=== PATIENT | male | born 1965 | race Caucasian/White ===

== ENCOUNTER 2022-04-07 08:33 | Emergency (ER) | payer OTHER, SELFPAY ==
[2022-04-07 08:51] VITALS: BP 125/74; PULSE 91; RESP 16; TEMP 36.6; O2SAT 98; BMI 33.0
[2022-04-07 09:41] VITALS: BP 125/74; PULSE 91; RESP 16; TEMP 36.6
--- OUTSIDE RECORDS SUMMARY | 2022-04-07 09:45 | XMS_ITS | Clinical Summary ---
:1965 Author Organization [employer] [facility] [place] [address] Care Team Providers Name Role Phone Demetrio Peña MD Primary Care Provider [phone] Allergies Active Allergy Reactions Severity Noted Date Comments Gabapentin Other - Describe In High 03/13/2008 Burning, stinging tongue Comment Field - possible swe lling Methocarbamol Tongue Swelling, High 08/07/2008 Tongue Angioedema Medications Medication Sig Dispensed Refills Start Date End Date Status oxyCODONE Take 1 Tablet (5 36 Tablet 0 05/24/2021 Ac tive (ROXICODONE) 5 mg mg) by mouth every immediate release 4 hours if needed tabletIndications: for Pain. History of transmetatarsal amputation of right foot (HC), Chronic pain syndrome, Closed fracture of left ankle, sequela polyethylene Drink 3 quarts the 4000 mL 0 06/21/2021 Active glycol-electrolyte day before (GOLYTELY) procedure and 1 236-22.74-6.74 -5.86 quart 6 hours gram before procedure suspensionIndications : Encounter for screening colonoscopy CrutchIndications: For home use. 2 Each 0 08/10/2021 Active S/P right knee arthroscopy aspirin (ECOTRIN) 81 Take 1 Tablet (81 28 Tablet 0 08/10/2021 Active mg enteric coated mg) by mouth 2 tabletIndications: times daily with S/P right knee meals. arthroscopy oxyCODONE-acetaminoph Take 1 Tablet by 20 Tablet 0 08/17/2021 Active en (PERCOCET) 5-325 mouth every 6 hours mg per if needed for Pain. tabletIndications: Max acetaminophen S/P right knee dose: 4000mg in 24 arthroscopy hrs. durable medical Fit for a Larger 1 Each 0 10/13/2021 Active equipment electric scooter (DME)Indications: due to pain and Reduced mobility, S/P discomfort from his right knee current scooter arthroscopy Active Problems Problem Noted Date S/P right knee arthroscopy 08/23/2021 History of transmetatarsal amputation of right foot Pseudarthrosis after fusion or arthrodesis 02/27/2019 Retrocalcaneal bursitis (back of heel), left 9 Osteomyelitis of metatarsal 03/21/2018 Depression 02/13/2018 Controlled substance agreement signed 05/24/2017 Overview: Douglas Ramírez MD [facility] Gracia Alexandre CMA....05/24/2017 7:20 AM Chronic back pain 03/26/2013 Microhematuria 11/04/2012 Metabolic acidosis, normal anion gap (NAG) 11/04/2012 Leucocytosis 11/01/2012 Lumbar spinal stenosis 10/31/2012 Anemia 10/31/2012 Sinus tachycardia 10/31/2012 Lumbar disc herniation with radiculopathy 01/03/2012 CUBITAL TUNNEL SYNDROME 09/19/2007 Lesion of plantar nerve 05/02/2007 Pain in limb 08/29/2006 Depressive disorder, not elsewhere classified 06/13/19 07 Tobacco use disorder 06/13/2006 Chronic pain syndrome 06/13/2006 Overview: Foot Lower limb amputation, foot 06/13/2006 Overview: R foot Chemical dependency Overview: primarily alcohol, but h/o multiple drug use in past including cocaine, opiates, amphetamines, marijuana Resolved Problems Problem Noted Date Resolved Date Strain of left Achilles tendon 01/16/2019 1 Wound of right foot 02/13/2018 11/23/2020 Controlled substance agreement signed 01/20/2013 Acute kidney injury 10/31/2012 11/23/2020 NARCOTIC CONTRACT 01/17/2008 02/20/2008 Overview: No contract. Still not an opiate shai te from [facility] standpoint. Narcotic contract 03/29/2007 12/30/2007 Overview: signed 07/09/06 08-06-2006 [facility] no longer prescribing travis cotic medications Alcohol abuse, unspecified 06/13/2006 11/23/2020 Backache, unspecified 06/13/2006 11/23/2020 Overview: chronic Myocarditis, unspecified 06/13/2006 11/23/2020 Overview: Remote HX of Encounters Date Type Specialty Care Team Description 03/22/2022 Telephone Votel, Demetrio Palafox MD 03/20/2022 Nurse/Clinic Staff Immunizat ion/Injection Only (COVID-19 vacci ne) 03/20/2022 Travel from Last 3 Months Immunizations Name Administration Dates Next Due COVID-19 vaccine (Moderna 100mcg/0.5mL) 04/14/2021, 07/07/19, 06/09/2020 PF, MDV COVID-19 vaccine (Pricing Assistant-[employer] 03/20/2022 30mcg/0.3mL) 12YO+ BIVALENT BOOSTER PF, MDV Influenza, IIV3 (Age >=3 years) 05/21/2013 Influenza, IIV4 03/24/2021, 01/22/2020, 02/07/2017 Influenza,CCIIV4 PRESERV FREE 02/22/2018 Td (Age >=7 Years) 08/13/2004, 10/08/2002, 01/12/2001 Td, Preservative Free (age >= 7 Years) 08/13/2004 Tdap 12/15/2014 Family History Medical History Relation Name Comments Cancer Brother 5 brain Cancer Brother 6 brain Diabetes Sister 2 Relation Name Status Comments Brother 1 Alive Brother 2 Alive Brother 3 Alive Brother 4 Alive Brother 5 Brother 6 Father (Age 69) Mother Sister 1 Alive Sister 2 Social History Tobacco Use Types Packs/Day Years Used Date Current Every Day Smoker Cigarettes 0.5 25 Smokeless Tobacco: Never Used Tobacco Cessation: Ready to Quit: Yes; C ounseling Given: Yes Comments: smoking 4-5 cigs per day Alcohol Use Standard Drinks/Week Comments No 26.7 (1 standard drink = 0.6 oz pure mul tiple cd tx, began age 13, first alcohol) treatment at age 14; last treatment at [facility] *Sober since 03/16/16 Alcohol Habits Answer Date Recorded How often do you have a drink Not asked containing alcohol? How many drinks containing alcohol Not asked do you have on a typical day when you are drinking? How often do you have six or more Not asked drinks on one occasion? 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 Obstetrics History Last Filed Vital Signs Vital Sign Reading Time Taken Comments Blood Pressure 123/76 08/10/2021 12:28 PM CDT Pulse 83 08/10/2021 12:28 PM CDT Temperature 36.7 ??C (98 ??F) 08/10/2021 11:23 AM CDT Respiratory Rate 18 08/10/2021 12:28 PM CDT Oxygen Saturation 93% 08/10/2021 12:28 PM CDT Inhaled Oxygen Concentration - - Weight 110.9 kg (244 lb 9.6 oz) 08/10/2021 6:57 AM CDT Height 185.4 cm (6' 1) 08/10/2021 6:57 AM CDT Body Mass Index 32.27 08/10/2021 6:57 AM CDT Plan of Treatment Health Maintenance Due Date Last Done Comments Pneumococcal series for age 19-64 1969 (1 - PCV) HIV for age 15-65 1978 Hepatitis C screening for age 0105/31/1981 18-79 Lipids for age 45-75 2008 Zoster (shingles) series for age 0105/31/2013 50+ (1 of 2) Influenza for age 50-64 01/12/2022 03/24/2021, 01/22/2020, 02/22/2018, Additional history exists BMI (ht and wt on same day) for 08/03/2022 08/03/2021, 06/14, age 18+ 04/12/2021, Additional history exists Depression screening for age 12+ 08/03/2022 08/03/2021, 09/2020, 03/16/2020, Additional history exists Fecal testing non-DNA 10/03/2022 10/03/2021 (FIT,FOBT,iFOBT) for age 45-75 Tetanus booster 12/15/2024 12/15/2014, 10/21/2012, 08/13/2004, Additional history exists Tdap Completed 12/15/2014 COVID-19 vaccine series Completed 03/20/2022, 04/14/2021, 07/07/2020, Additional history exists Medical Devices Implanted Type Area Inventory Manager Device Shelf Model / Identifier Expiration Serial / Date Lot Perimeter Lg 16mm 8 Deg Add-On - [id number] N/A: Medtron ic [id number] / Implanted: Qty: 1 on 10/30/2012 by Audi Rajan at [facility] Spine Spine/Ortho / [id number] Bone Matrix 5cc Stimulan Kit Rapid Cure - [id number] Right : [employer] 12/11/2020 [id number] / Implanted: Qty: 1 on 03/21/2018 by Rashad Bourgeois MD at [facility] Foot / [id number]/28-R376 /[id number] Screw Foot 5x55mm Fixos Comp Headless - [id number] Left: [place] [id number] / Implanted: Qty: 1 on 08/20/2018 by Rashad Bourgeois MD at [facility] Foot Orthopaedics / Description: Load [id number] Results Not on filefrom Last 3 Months [address] (Home) [address] [facility] [address] [address] Gianni Mijares Personal/Family Self 1965 [address] [facility] [place] [place] [address] Advance Directives Latest Code Status on File Code Status Date Activated Date Inactivated Comments Full Code 08/10/2021 6:54 AM 08/10/2021 3:29 PM Code Status Discussion: Reviewed Preferences Full Code 08/20/2018 9:53 AM 08/20/2018 9:15 PM Full Code 03/21/2018 1:14 PM 03/24/2018 3:26 PM Full Code 02/13/2018 12:58 PM 02/15/2018 5:23 PM Full Code 12/25/2017 9:27 AM 12/25/2017 7:50 PM Care Teams Utility Aide Relationship Specialty Start Date End Date Votel, Demetrio Palafox MD PCP - General Family Practice 01/21/[address] [place] [address]
--- OUTSIDE RECORDS SUMMARY | 2022-04-07 09:45 | XMS_ITS ---
:1965 Author Organization [employer] - Primary Address [address] [place] [address] Care Team Providers Name Role Phone Judy Cronin Unavailable Unavailable PROBLEMS ALLERGIES No Known Allergies ENCOUNTERS IMMUNIZATIONS No Known Immunizations SOCIAL HISTORY REASON FOR REFERRAL FUNCTIONAL STATUS PLAN OF CARE VITAL SIGNS MEDICATIONS PROCEDURES No Known procedures RESULTS REASON FOR VISIT Insurance Providers
--- OUTSIDE RECORDS SUMMARY | 2022-04-07 09:45 | XMS_ITS ---
:1965 Author Organization [employer] [facility] - Primary Address [address] [place] [address] Care Team Providers Name Role Phone Nikhilmarybethmaria teresaJudy Unavailable Unavailable PROBLEMS Type Condition ICD9-CM [id number] Onset Condition SNOMED Cod e Code Code Dates Status Problem Acquired absence of Z89.439 Active 411863630 unspecified foot Problem Fusion of spine, M43.20 Active site unspecified Problem Obesity, unspecified E66.9 Active 950407052 Problem Unspecified internal M23.91 Active 40565704 derangement of right knee Problem Chronic pain G89.4 Active 2048897 06 syndrome Problem terminologist (current) Z79.891 Active 082158602 use of opiate analgesic Problem Pain in left ankle M25.572 Active 2 59313227 and joints of left foot Problem Postlaminectomy M96.1 Active 2715 1001 syndrome, not elsewhere classified ALLERGIES No Known Allergies ENCOUNTERS Encounter Location Date Diagnosis [facility] [address] [facility] Mar, Chronic pain syndrome Primary 5pm [facility], [place] [address] [facility] [address] [place] [address] Mar, Chronic pain syndrome [facility] [place], [place] G89.4 ; Other acute [facility] [address] postprocedural p ain G89.18 ; terminologist (cur rent) use of opiate analge sic Z79.891 ; Fusion of spine, site unspecified M43.20 ; Acquired absence of unspecified foot Z89.439 ; Pain in left ank le and joints of left f oot M25.572 ; Pain i n right knee M25.561 and Postlaminectomy syndrome, not elsewhere cl assified M96.1 [facility] [address] Mar, [place] [address] [facility] [address] Feb, [place] [address] [facility] & [address] Feb, Chronic pain syndrome [facility] [place], [place] G89.4 ; Other acute [facility] [address] postprocedural p ain G89.18 ; terminologist (cur rent) use of opiate analge sic Z79.891 ; Fusion of spine, site unspecified M43.20 ; Acquired absence of unspecified foot Z89.439 ; Pain in left ank le and joints of left f oot M25.572 ; Pain i n right knee M25.561 and Postlaminectomy syndrome, not elsewhere cl assified M96.1 [facility] [address] Jan, Chronic pain syndrome Primary 5pm [facility], [place] [address] [facility] [address] Jan, [place] [address] [facility] - [address] Jan, [place] [address] [facility] & [address] Jan, Chronic pain syndrome [facility] [place], [place] G89.4 ; Other acute [facility] [place] [address] postprocedural p ain G89.18 ; [facility] (cur rent) use of opiate analge sic Z79.891 ; Fusion of spine, site unspecified M43.20 ; Acquired absence of unspecified foot Z89.439 ; Pain in left ank le and joints of left f oot M25.572 ; Pain i n right knee M25.561 and Postlaminectomy syndrome, not elsewhere cl assified M96.1 [facility] - [address] Jan, Primary [address] [place] [address], [place] [address] [facility] - [address] Jan, Chronic pain syndrome [facility] [place] [address] [facility] [address] Jan, Primary [address] [place] [address], [place] [address] [facility] & [address] Jan, Chronic pain syndrome [facility] [place], [place] G89.4 ; Other acute [facility] [place] [address] postprocedural p ain G89.18 ; [facility] (cur rent) use of opiate analge sic Z79.891 ; Fusion of spine, site unspecified M43.20 ; Acquired absence of unspecified foot Z89.439 ; Pain in left ank le and joints of left f oot M25.572 ; Pain i n right knee M25.561 and Postlaminectomy syndrome, not elsewhere cl assified M96.1 [facility] - [address] Dec, [facility] [address] [facility] - [address] Dec, Chronic pain syndrome Primary [address] [place] [address], [place] [address] [facility] - [address] Dec, Chronic pain syndrome Primary [address] [place] [address], [place] [address] [facility] - [address] Dec, Primary [address] [place] [address], [place] [address] [facility] [address] Dec, Chronic pain syndrome [facility] [place], [place] G89.4 ; Other acute [facility] [place] [address] postprocedural p ain G89.18 ; terminologist (cur rent) use of opiate analge sic Z79.891 ; Fusion of spine, site unspecified M43.20 ; Acquired absence of unspecified foot Z89.439 ; Pain in left ank le and joints of left f oot M25.572 ; Pain i n right knee M25.561 and Postlaminectomy syndrome, not elsewhere cl assified M96.1 [facility] - [address] Nov, Long ter m (current) use of Primary 5pm [facility], [place] [address] [facility] [address] Nov, Chronic pain syndrome [facility] [place], [place] G89.4 ; Other acute [facility] [address] postprocedural p ain G89.18 ; [facility] (cur rent) use of opiate analge sic Z79.891 ; Fusion of spine, site unspecified M43.20 ; Acquired absence of unspecified foot Z89.439 ; Pain in left ank le and joints of left f oot M25.572 ; Pain i n right knee M25.561 and Postlaminectomy syndrome, not elsewhere cl assified M96.1 [facility] - [address] Oct, Chronic pain syndrome Primary 5pm [facility], [place]89.[place] ; [place] [address] postprocedural p ain G89.18 ; MCC (cur rent) use of opiate analge sic Z79.891 ; Fusion of spine, site unspecified M43.20 ; Acquired absence of unspecified foot Z89.439 ; Pain in left ank le and joints of left f oot M25.572 ; Pain i n right knee M25.561 and Postlaminectomy syndrome, not elsewhere cl assified M96.1 [facility] - [address] September, Chronic pain syndrome Primary 5pm [facility], [place] [address] [facility] - [address] September, Chronic pain syndrome Primary 5pm [facility], G89.4 ; [place] [address] postprocedural p ain G89.18 ; [facility] (cur rent) use of opiate analge sic Z79.891 ; Fusion of spine, site unspecified M43.20 ; Acquired absence of unspecified foot Z89.439 ; Pain in left ank le and joints of left f oot M25.572 ; Pain i n right knee M25.561 and Postlaminectomy syndrome, not elsewhere cl assified M96.[address] Aug, [place] ; Other acute [facility] [address] postprocedural p ain G89.18 ; MCC (cur rent) use of opiate analge sic Z79.891 ; Fusion of spine, site unspecified M43.20 ; Acquired absence of unspecified foot Z89.439 ; Pain in left ank le and joints of left f oot M25.572 ; Pain i n right knee M25.561 and Postlaminectomy syndrome, not elsewhere cl assified M96.[address] Aug, [place] pain [place] ; Other acute [facility] [address] postprocedural p ain G89.18 ; MCC (cur rent) use of opiate analge sic Z79.891 ; Fusion of spine, site unspecified M43.20 ; Acquired absence of unspecified foot Z89.439 ; Pain in left ank le and joints of left f oot M25.572 ; Pain i n right knee M25.561 ; Postlaminectomy syndrome, not elsewhere cl assified M96.1 and Obesit y, unspecified E66. [address] Aug, Chronic pain syndrome [facility] [place], [place] G89.4 ; Other acute [facility] [address] postprocedural p ain G89.18 ; MCC (cur rent) use of opiate analge sic Z79.891 ; Fusion of spine, site unspecified M43.20 ; Acquired absence of unspecified foot Z89.439 ; Pain in left ank le and joints of left f oot M25.572 ; Pain i n right knee M25.561 ; Postlaminectomy syndrome, not elsewhere cl assified M96.1 and Obesit y, unspecified E66. 9 [facility] - [address] Jul, Primary 5pm [facility] [place] [address] [facility] - [address] Jul, Long ter (current) use of Primary 5pm [facility], opiate analge sic Z79.891 ; [place] [address] Chronic pain syn drome G89.4 ; Fusion o f spine, site unspecified M43.20 ; Acquired absence of unspecified foot Z89.439 ; Pain in left ank le and joints of left f oot M25.572 ; Pain i n right knee M25.561 ; Postlaminectomy syndrome, not elsewhere cl assified M96.1 ; Obesity, unspecified E66. 9 and Unspecified inte rnal derangement of r ight knee M23.91 [facility] - [address] Jun, [facility] (current) use of Primary 5pm [facility], opiate analge sic Z79.891 ; [place] [address] Chronic pain syn drome G89.4 ; Fusion o f spine, site unspecified M43.20 ; Acquired absence of unspecified foot Z89.439 ; Pain in left ank le and joints of left f oot M25.572 ; Pain i n right knee M25.561 ; Postlaminectomy syndrome, not elsewhere cl assified M96.1 ; Obesity, unspecified E66. 9 and Unspecified inte rnal derangement of r ight knee M23.91 [place] [address] Jun, [facility] (current) use of [facility] [place] opiat e analgesic Z79.891 ; [facility] [address] Chronic pain syn drome G89.4 ; Fusion o f spine, site unspecified M43.20 ; Acquired absence of unspecified foot Z89.439 ; Pain in left ank le and joints of left f oot M25.572 ; Pain i n right knee M25.561 ; Postlaminectomy syndrome, not elsewhere cl assified M96.1 ; Obesity, unspecified E66. 9 and Unspecified inte rnal derangement of r ight knee M23.91 [facility] [address] May, Rudy kerns m (current) use of [facility] [place], [place] opiat e analgesic Z79.891 ; [facility] [address] Chronic pain syn drome G89.4 ; Fusion o f spine, site unspecified M43.20 ; Acquired absence of unspecified foot Z89.439 ; Pain in left ank le and joints of left f oot M25.572 ; Pain i n right knee M25.561 ; Postlaminectomy syndrome, not elsewhere cl assified M96.1 and Obesit y, unspecified E66. 9 [facility] - [address] May, Rudy ter m (current) use of Primary 5pm [facility], opiate analge sic Z79.891 ; [place] [address] Chronic pain syn drome G89.4 ; Fusion o f spine, site unspecified M43.20 ; Acquired absence of unspecified foot Z89.439 ; Pain in left ank le and joints of left f oot M25.572 and Pain in right knee M25.561 [facility] - [address] Apr, [place] [address] [address] [facility] - [address] Apr, [place] [address] IMMUNIZATIONS No Known Immunizations SOCIAL HISTORY Qualifiers Date Current Smoker REASON FOR REFERRAL FUNCTIONAL STATUS PLAN OF CARE Activity Details Follow Up 4 Weeks Reason:Pain manageme nt f/u Future Appointment Provider Name:Judy Cronin , 2022-04-25 11:00:00 AM, [address], [address], [place], [address], Pending Test Alcohol Metabolities Pending Test [facility] VITAL SIGNS Temperature 98.2 degrees Fahrenheit 2021-06-02 Height 82 in 2021-06-02 Weight 251 lbs 2021-06-02 BMI 26.24 kg/m2 2021-06-02 Blood pressure systolic 151 mm Hg 2021-06-02 Blood pressure diastolic 89 mm Hg 2021-06-02 MEDICATIONS Medication Instructions Dosage Frequency Start End Duration Statu s Date Date Oxycodone orally TID 1 tab(s) 8h 15 Mar, 13 Apr, 28 days Active Hydrochloride 15 2021 2021 mg D3 50 mcg orally once a 1 cap(s) 30 day(s) Activ e day with some fat oxycodone 15 mg PO TID 1 tab 8h Active HYDROmorphone Active fentaNYL Active oxyCODONE 10 mg orally 3 times 1 tab(s) Dec, days Active daily sever pain 2021 PROCEDURES No Known procedures RESULTS Name Result Date Reference Range Alcohol Metabolities 2021-06-02 ETHANOL BIOMARKERS Negative Ethyl Glucuronide Not Detected Ethyl Sulfate Not Detected [facility] Comprehensive 2021-06-02 Summary Report (Summary) FINAL PDF LCLS REASON FOR VISIT pain management f/u via phone, pain management f/u, Decrease update, update from [place], pain management f/u, call [place], pain management f/u, medication( prescrption) , change RX, clairify RX, pain management f/u, New Refill Request, 5mg oxycodone sent. 10 mg failed, resend medication., pain management f/u, pain management f/u, pain management f/u via zoom, pain management f/u via zoom, pain managementf/u via zoom, pain management f/u via zoom, pain management f/u via phone, no visit today, pain management f/u via phone, pain management f/u via phone, pain management f/u via phone, pain management f/u via phone, pain management f/u via phone, Chronic back pain , partial right foot amputation, torn meniscus right knee, medical ride cancelled, [facility], reschedule, consult 05/03 Insurance Providers [facility] Member Patient Patient Patient Patient Patient Subscriber Subscriber Subscriber Group Insurance Plan Plan Plan Plan ID Relationship Address Phone Name Date of ID Name Date of No Type Insurance Insurance Insurance Coverage to Subscriber Address Phone Name Dates [employer] [phone] [employer] self Gianni [id number] [facility] [address] [address]
--- OUTSIDE RECORDS SUMMARY | 2022-04-07 09:45 | XMS_ITS ---
:1965 Author Organization [facility] 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 - [address] Mar, [place] [address] 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 - [address] Jan, Chronic pain syndrome Primary 5pm [facility], [place] [id number] [facility] - [address] Jan, [place] [address] [facility] [address] Jan, [place] [address] [facility] & [address] Jan, Chronic pain syndrome [facility], [place], [place] G89.4 ; Other acute [facility] [employer] [address] postprocedural p ain G89.18 ; [facility] (cur rent) use of opiate analge sic Z79.891 ; Fusion of spine, site unspecified M43.20 ; Acquired absence of unspecified foot Z89.439 ; Pain in left ank le and joints of left f oot M25.572 ; Pain i n right knee M25.561 and Postlaminectomy syndrome, not elsewhere cl assified M96.1 [facility] - [address] Jan, Primary [address] [place] [address], [place] [id number] [facility] - [address] Jan, Chronic pain syndrome [facility] [place] [id number] [facility] - [address] Jan, Primary [address] [place] [address], [place] [id number] [facility] & [address] Jan, Chronic pain syndrome [facility], [place], [place] G89.4 ; Other acute [facility] [employer] [address] postprocedural p ain G89.18 ; [facility] (cur rent) use of opiate analge sic Z79.891 ; Fusion of spine, site unspecified M43.20 ; Acquired absence of unspecified foot Z89.439 ; Pain in left ank le and joints of left f oot M25.572 ; Pain i n right knee M25.561 and Postlaminectomy syndrome, not elsewhere cl assified M96.1 [facility] [address] Dec, [facility] [place] [id number] [facility] - [address] Dec, Chronic pain syndrome Primary [address] [place] [address], [place] [id number] [facility] - [address] Dec, Chronic pain syndrome Primary [address] [place] [address], [place] [id number] [facility] 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 - [address] Nov, Long ter m (current) use of Primary 5pm [facility], [place] [id number] [facility] [address] Nov, Chronic pain syndrome [facility], [place], [place] G89.4 ; Other acute [facility] [address] postprocedural p ain G89.18 ; [facility] (cur rent) use of opiate analge sic Z79.891 ; Fusion of spine, site unspecified M43.20 ; Acquired absence of unspecified foot Z89.439 ; Pain in left ank le and joints of left f oot M25.572 ; Pain i n right knee M25.561 and Postlaminectomy syndrome, not elsewhere cl assified M96.1 [facility] - [address] Oct, Chronic pain syndrome Primary 5pm [facility], G89.4 ; [place] [address] postprocedural p ain G89.18 ; [facility] (cur rent) use of opiate analge sic Z79.891 ; Fusion of spine, site unspecified M43.20 ; Acquired absence of unspecified foot Z89.439 ; Pain in left ank le and joints of left f oot M25.572 ; Pain i n right knee M25.561 and Postlaminectomy syndrome, not elsewhere cl assified M96.1 [facility] - [address] September, Chronic pain syndrome Primary 5pm [facility], [place] [address] [facility] - [address] September, Chronic pain syndrome Primary 5pm [facility], G89.4 ; [place] [address] postprocedural p ain G89.18 ; [facility] (cur rent) use of opiate analge sic Z79.891 ; Fusion of spine, site unspecified M43.20 ; Acquired absence of unspecified foot Z89.439 ; Pain in left ank le and joints of left f oot M25.572 ; Pain i n right knee M25.561 and Postlaminectomy syndrome, not elsewhere cl assified M96.[address] Aug, [place] ; Other acute [facility] [address] postprocedural p ain G89.18 ; [facility] (cur rent) use of opiate analge sic Z79.891 ; Fusion of spine, site unspecified M43.20 ; Acquired absence of unspecified foot Z89.439 ; Pain in left ank le and joints of left f oot M25.572 ; Pain i n right knee M25.561 and Postlaminectomy syndrome, not elsewhere cl assified M96.[address] Aug, [place] pain [place] ; Other acute [facility] [address] postprocedural p ain G89.18 ; [facility] (cur rent) use of opiate analge sic Z79.891 ; Fusion of spine, site unspecified M43.20 ; Acquired absence of unspecified foot Z89.439 ; Pain in left ank le and joints of left f oot M25.572 ; Pain i n right knee M25.561 ; Postlaminectomy syndrome, not elsewhere cl assified M96.1 and Obesit y, unspecified E66. [address] Aug, Chronic pain syndrome [facility], [place], [place] G89.4 ; Other acute [facility] [address] postprocedural p ain G89.18 ; [facility] (cur rent) use of opiate analge sic Z79.891 ; Fusion of spine, site unspecified M43.20 ; Acquired absence of unspecified foot Z89.439 ; Pain in left ank le and joints of left f oot M25.572 ; Pain i n right knee M25.561 ; Postlaminectomy syndrome, not elsewhere cl assified M96.1 and Obesit y, unspecified E66. 9 [facility] - [address] Jul, Primary 5pm [place] [id number] [facility] - [address] Jul, Long ter (current) use of Primary 5pm [facility], opiate analge sic Z79.891 ; [place] [id number] Chronic pain syn drome G89.4 ; Fusion o f spine, site unspecified M43.20 ; Acquired absence of unspecified foot Z89.439 ; Pain in left ank le and joints of left f oot M25.572 ; Pain i n right knee M25.561 ; Postlaminectomy syndrome, not elsewhere cl assified M96.1 ; Obesity, unspecified E66. 9 and Unspecified inte rnal derangement of r ight knee M23.91 [facility] - [address] Jun, [facility] (current) use of Primary 5pm [facility], opiate analge sic Z79.891 ; [place] [id number] Chronic pain syn drome G89.4 ; Fusion o f spine, site unspecified M43.20 ; Acquired absence of unspecified foot Z89.439 ; Pain in left ank le and joints of left f oot M25.572 ; Pain i n right knee M25.561 ; Postlaminectomy syndrome, not elsewhere cl assified M96.1 ; Obesity, unspecified E66. 9 and Unspecified inte rnal derangement of r ight knee M23.91 [place] [address] Jun, [facility] (current) use of [facility] [place] opiat e analgesic Z79.891 ; [facility] [address] Chronic pain syn drome G89.4 ; Fusion o f spine, site unspecified M43.20 ; Acquired absence of unspecified foot Z89.439 ; Pain in left ank le and joints of left f oot M25.572 ; Pain i n right knee M25.561 ; Postlaminectomy syndrome, not elsewhere cl assified M96.1 ; Obesity, unspecified E66. 9 and Unspecified inte rnal derangement of r ight knee M23.91 [facility] [address] May, Rudy kerns m (current) use of [facility] [place], [place] opiat e analgesic Z79.891 ; [facility] [address] Chronic pain syn drome G89.4 ; Fusion o f spine, site unspecified M43.20 ; Acquired absence of unspecified foot Z89.439 ; Pain in left ank le and joints of left f oot M25.572 ; Pain i n right knee M25.561 ; Postlaminectomy syndrome, not elsewhere cl assified M96.1 and Obesit y, unspecified E66. 9 [facility] - [address] May, Rudy ter m (current) use of Primary 5pm [facility], opiate analge sic Z79.891 ; [place] [id number] Chronic pain syn drome G89.4 ; Fusion o f spine, site unspecified M43.20 ; Acquired absence of unspecified foot Z89.439 ; Pain in left ank le and joints of left f oot M25.572 and Pain in right knee M25.561 [facility] - [address] Apr, Primary [address] [address] [facility] - [address] Apr, [place] [address] IMMUNIZATIONS No Known Immunizations SOCIAL HISTORY Qualifiers Date Current Smoker REASON FOR REFERRAL FUNCTIONAL STATUS PLAN OF CARE Activity Details Follow Up 4 Weeks Reason:Pain manageme nt f/u Future Appointment Provider Name:Judy Cronin , 2022-04-25 11:00:00 AM, [address], [address], [place], [address], Pending Test [employer] Comprehensive Pending Test Alcohol Metabolities VITAL SIGNS Temperature 98.2 degrees Fahrenheit 2021-06-02 [...] pain management f/u, Decrease update, update from [place], pain management f/u, call [place] [facility], pain management f/u, medication( prescrption) , change [...] torn meniscus right knee, medical ride cancelled, 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 [employer] self [place] [id number] [facility] [address] [address]
--- OUTSIDE RECORDS SUMMARY | 2022-04-07 09:45 | XMS_ITS ---
:1965 Author Organization [facility] 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 - [address] [facility] Mar, Chronic pain syndrome Primary [address] 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 - [address] Mar, [place] [address] [facility] 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 [address] Jan, Chronic pain syndrome Primary [address] [facility], [place] [address] [facility] - [address] Jan, [place] [address] [facility] - [address] Jan, [place] [address] [facility] & [address] Jan, Chronic pain syndrome [facility], [place], [place] G89.4 ; Other acute [facility] [address] postprocedural p ain G89.18 ; jail (cur rent) use of opiate analge sic Z79.891 ; Fusion of spine, site unspecified M43.20 ; Acquired absence of unspecified foot Z89.439 ; Pain in left ank le and joints of left f oot M25.572 ; Pain i n right knee M25.561 and Postlaminectomy syndrome, not elsewhere cl assified M96.1 [facility] - [address] Jan, Primary [address] [place] [address], [place] [address] [facility] - [address] Jan, Chronic pain syndrome [facility], [place] [address] [facility] - [address] Jan, Primary [address] [place] [address], [place] [address] [facility] & [address] Jan, Chronic pain syndrome [facility], [place], [place] G89.4 ; Other acute [facility] [address] postprocedural p ain G89.18 ; jail (cur rent) use of opiate analge sic Z79.891 ; Fusion of spine, site unspecified M43.20 ; Acquired absence of unspecified foot Z89.439 ; Pain in left ank le and joints of left f oot M25.572 ; Pain i n right knee M25.561 and Postlaminectomy syndrome, not elsewhere cl assified M96.1 [facility] - [address] Dec, [facility] [address] [facility] - [address] Dec, Chronic pain syndrome Primary [address] [place] [address], [place] [address] [facility] - [address] Dec, Chronic pain syndrome Primary [address] [place] [address], [place] [address] [facility] 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 - [address] Nov, Long ter m (current) use of Primary 5pm [facility], [place]iate [place] [address] [facility] [address] Nov, Chronic pain syndrome [facility], [place], [place] G89.4 ; Other acute [facility] [address] postprocedural p ain G89.18 ; jail (cur rent) use of opiate analge sic Z79.891 ; Fusion of spine, site unspecified M43.20 ; Acquired absence of unspecified foot Z89.439 ; Pain in left ank le and joints of left f oot M25.572 ; Pain i n right knee M25.561 and Postlaminectomy syndrome, not elsewhere cl assified M96.1 [facility] - [address] Oct, Chronic pain syndrome Primary 5pm [facility], G89.4 ; [place] [address] postprocedural p ain G89.18 ; jail (cur rent) use of opiate analge sic Z79.891 ; Fusion of spine, site unspecified M43.20 ; Acquired absence of unspecified foot Z89.439 ; Pain in left ank le and joints of left f oot M25.572 ; Pain i n right knee M25.561 and Postlaminectomy syndrome, not elsewhere cl assified M96.1 [facility] - [address] September, Chronic pain syndrome Primary [address]pm [facility], [place] [address] [facility] - [address] September, Chronic pain syndrome Primary 5pm 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 analge sic Z79.891 ; Fusion of spine, site unspecified M43.20 ; Acquired absence of unspecified foot Z89.439 ; Pain in left ank le and joints of left f oot M25.572 ; Pain i n right knee M25.561 and Postlaminectomy syndrome, not elsewhere cl assified M96.[address] Aug, [place] pain [place] ; Other acute [facility] [address] postprocedural p ain G89.18 ; jail (cur rent) use of opiate analge sic Z79.891 ; Fusion of spine, site unspecified M43.20 ; Acquired absence of unspecified foot Z89.439 ; Pain in left ank le and joints of left f oot M25.572 ; Pain i n right knee M25.561 ; Postlaminectomy syndrome, not elsewhere cl assified M96.1 and Obesit y, unspecified E66. 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 [address] [facility] - [address] Jul, Primary [address] [place] [facility] [address] [facility] - [address] Jul, Long ter (current) use of Primary [address]pm [facility], opiate analge sic Z79.891 ; [place] [address] Chronic pain syn drome G89.4 ; Fusion o f spine, site unspecified M43.20 ; Acquired absence of unspecified foot Z89.439 ; Pain in left ank le and joints of left f oot M25.572 ; Pain i n right knee M25.561 ; Postlaminectomy syndrome, not elsewhere cl assified M96.1 ; Obesity, unspecified E66. 9 and Unspecified inte rnal derangement of r ight knee M23.91 [facility] - [address] Jun, [facility] (current) use of Primary [address] [facility], opiate analge sic Z79.891 ; [place] [address] Chronic pain syn drome G89.4 ; Fusion o f spine, site unspecified M43.20 ; Acquired absence of unspecified foot Z89.439 ; Pain in left ank le and joints of left f oot M25.572 ; Pain i n right knee M25.561 ; Postlaminectomy syndrome, not elsewhere cl assified M96.1 ; Obesity, unspecified E66. 9 and Unspecified inte rnal derangement of r ight knee M23.91 [place] [address] Jun, [facility] (current) use of [facility], [place], [place] opiat e analgesic Z79.891 ; [facility] [address] Chronic pain syn drome G89.4 ; Fusion o f spine, site unspecified M43.20 ; Acquired absence of unspecified foot Z89.439 ; Pain in left ank le and joints of left f oot M25.572 ; Pain i n right knee M25.561 ; Postlaminectomy syndrome, not elsewhere cl assified M96.1 ; Obesity, unspecified E66. 9 and Unspecified inte rnal derangement of r ight knee M23.91 [facility] [address] May, [facility] (current) use of [facility], [place], [place] opiat e analgesic Z79.891 ; [facility] [address] Chronic pain syn drome G89.4 ; Fusion o f spine, site unspecified M43.20 ; Acquired absence of unspecified foot Z89.439 ; Pain in left ank le and joints of left f oot M25.572 ; Pain i n right knee M25.561 ; Postlaminectomy syndrome, not elsewhere cl assified M96.1 and Obesit y, unspecified E66. 9 [facility] - [address] May, Rudy ter m (current) use of Primary [address] [facility], opiate analge sic Z79.891 ; [place] [address] Chronic pain syn drome G89.4 ; Fusion o f spine, site unspecified M43.20 ; Acquired absence of unspecified foot Z89.439 ; Pain in left ank le and joints of left f oot M25.572 and Pain in right knee M25.561 [facility] - [address] Apr, [place] [address] [address] [facility] - [address] Apr, [place] [address] IMMUNIZATIONS No Known Immunizations SOCIAL HISTORY Qualifiers Date Current Smoker REASON FOR REFERRAL FUNCTIONAL STATUS PLAN OF CARE Activity Details Follow Up 4 Weeks Reason:Pain manageme nt f/u Future Appointment Provider Name:Judy Cronin , 2022-04-25 11:00:00 AM, [address], [address], [place], [address], Pending Test Alcohol Metabolities Pending Test ToxASSURE [...] pain management f/u, Decrease update, update from [place], pain management f/u, call [place], pain management f/u, medication( prescrption) , change [...] torn meniscus right knee, medical ride cancelled, 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 [employer] self Gianni [id number] [facility] [address] [address]
--- NOTE | 2022-04-07 13:08 | ED.GENADULT ---
HPI - General Adult General Date Seen: 04/07/22 Chief complaint: Lower Extremity Swelling Stated complaint: Likely cellulitis Time Seen by Provider: 04/07/22 09:26 Source: patient History of Present Illness HPI narrative: Patient is a 56-year-old male who complains of fairly sudden onset of pain in the left lower anterior leg starting yesterday. He says he has a history of cellulitis, previously in the right lower extremity. 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 In any case, he has since developed redness and warmth in the left lower leg in a focal area on the lower anterior oreilly. He does not have any diffuse swelling or redness. He denies any fevers, chills, vomiting or other systemic complaints. No injury to that area. He does not have underlying diabetes, no other health history which affects his immune system. Related Data Previous Rx's Medication Instructions Recorded cephalexin 500 mg capsule 500 mg PO QID #28 caps 04/07/22 Allergies Allergy/AdvReac Type Severity Reaction Status Date / Time No Known Drug Allergies Allergy Verified 04/07/22 08:53 Review of Systems Status of ROS: Reports: 10 or more systems reviewed and unremarkable except as noted in History and below [facility] Medical History History of cellulitis Social History Smoking Status: Current every day smoker What tobacco products do you use: cigarettes Smoking packs per day: 0.5 Smoking cigarettes per day: 10.0 Do you use any of these nicotine containing products: None How often do you have a drink containing alcohol: never AUDIT-C Alcohol total score: 0 Non-prescribed substance use: denies use Exam Narrative: Exam Narrative: Vital signs as noted above. In general, an alert, well-appearing patient. Head: Normocephalic, atraumatic. Eyes: Pupils are equal reactive. Extraocular movements are full. Conjunctivae are normal. ENT: Mucous membranes are moist. Throat is normal. Neck: Supple without lymphadenopathy. Heart: Regular rate and rhythm. No murmur or rub. Lungs: Clear bilaterally. No increased work of breathing, crackles or wheezes. Extremities: Amputation on the right. On the left, there is a well-demarcated area on anterior lower leg which is warm and tender to palpation. There is no fluctuance or crepitus. No significant edema. Distal pulses normal. Neurologic: Patient is alert and oriented to person and place. Speech is fluent. Face is symmetric. Moves all extremities equally. Affect: Normal. Skin: Warm and dry. Well perfused. Const: Vital Signs, click to edit/add: Vital Signs - 24 hr 04/07/22 08:51 04/07/22 09:41 Temperature 97.8 F 97.8 F Pulse Rate [Left P ulse Oximeter] 91 91 Respiratory Rate 16 16 Blood Pressure [Ri ght Upper Arm] 125/74 125/74 Pulse Oximetry 98 Oxygen Delivery Me thod Room Air Documenting provider has reviewed patient's vital signs: yes Course Course Hospital Course: At this time exam is consistent with focal cellulitis. He does not appear systemically ill. Medical history is fairly unremarkable. His exam is not consistent with DVT and I do not think he needs to have additional evaluation for that at this point. I think it is reasonable to start him on outpatient antibiotics. I do not think that blood work will add a lot to our decision making today and so I have not ordered any labs. Discussed with him that the appearance of this may worsened slightly over the next 24 hours, but within 48 hours he should be improving. If he has significant worsening at any time or develops new symptoms such as fever, chills, vomiting he should return for re-evaluation in the ER. If he is not improving over the next 48 hours he should be seen for re-evaluation in clinic or return to the ER if clinic is unavailable. Vital Signs Vital signs: Initial Vital Signs Temperature 97.8 F 04/07/22 08:51 Temperature Source Temporal Artery Scan 04/07/22 08:51 Pulse Rate 91 04/07/22 08:51 Respiratory Rate 16 04/07/22 08:51 Blood Pressure 125/74 04/07/22 08:51 Blood Pressure Mean 91 04/07/22 08:51 Blood Pressure Position Sitting 04/07/22 08:51 Pulse Oximetry 98 04/07/22 08:51 Oxygen Delivery Method 04/07/22 08:51 Vital Signs Temperature 97.8 F 04/07/22 08:51 Pulse Rate 91 04/07/22 08:51 Respiratory Rate 16 04/07/22 08:51 Blood Pressure 125/74 04/07/22 08:51 Pulse Oximetry 98 04/07/22 08:51 Oxygen Delivery Method 04/07/22 08:51 Temperature 97.8 F 04/07/22 09:41 Pulse Rate 91 04/07/22 09:41 Respiratory Rate 16 04/07/22 09:41 Blood Pressure 125/74 04/07/22 09:41 Pulse Oximetry 98 04/07/22 08:51 Oxygen Delivery Method 04/07/22 08:51 Discharge Plan Discharge Clinical Impression: Cellulitis of left leg Patient Disposition: Home, Self-Care Condition: Stable Instructions: Cellulitis (ED) Additional Instructions: Antibiotic as prescribed. Redness may get slightly worse over the next 24 hours, but should be significantly improved over the next 48. If not, follow up with primary care on Sunday or return for re-evaluation in the ER. If at any time you have significant worsening of redness, pain, swelling or develops new symptoms such as high fevers, chills, vomiting or other systemic symptoms, return for more urgent evaluation. Prescriptions: New cephalexin 500 mg capsule 500 mg PO QID Qty: 28 0RF Stand Alone Forms: [facility] Info Instructions
== END 2022-04-07 09:45 | disposition home or self-care (01) ==
LOC: ED 09:43
PROVIDERS: Emergency Provider Emergency Medicine
DX: L03.116 Cellulitis of left lower limb (principal)
CPT/HCPCS: 99283; 99284

== ENCOUNTER 2022-05-08 15:13 | Emergency (ER) | payer OTHER, SELFPAY ==
[2022-05-08 15:18] VITALS: BP 170/84; PULSE 119; RESP 20; TEMP 36.8; O2SAT 170; BMI 33.0
--- NOTE | 2022-05-08 15:56 | ED.SKABFB ---
HPI - Skin/Abscess/Foreign Bdy General Chief complaint: Skin/Abscess/Foreign Body Stated complaint: Cellulitis, wants a refill of antibiotics Time Seen by Provider: 05/08/22 15:29 History of Present Illness HPI narrative: This 56-year-old male comes in stating that he thinks he needs another prescription for an antibiotic for cellulitis. He states that he has had cellulitis in his lower extremity in the past and was diagnosed with this about a month ago. He took cephalexin and improved. His symptoms did not resolve so he went back to his primary doc who gave him a prescription for clindamycin. As he took that medicine he felt like his symptoms worsened. He also reports itchy skin and states that he has been taking Sudafed for nasal congestion. He has erythema with warmth bilaterally in his lower extremities extending from just below the knee down to his feet. He has the toes of his right foot amputated. He arrives with normal temperature but does have some tachycardia. He does not report any shortness of breath. He states that he has an appointment tomorrow by zoom call and another 1 in 3 days with his primary physician. Related Data Home Medications Medication Instructions Recorded Confirmed oxycodone 15 mg tablet 15 mg PO TID 05/08/22 05/08/22 Previous Rx's Medication Instructions Recorded cephalexin 500 mg capsule 500 mg PO TID 10 days #30 caps 05/08/22 triamcinolone acetonide 0.1 % 1 applic topical BID #30 grams 05/08/22 topical cream Allergies Allergy/AdvReac Type Severity Reaction Status Date / Time No Known Drug Allergies Allergy Verified 04/07/22 08:53 Review of Systems Status of ROS: Reports: 10 or more systems reviewed and unremarkable except as noted in History and below Narrative: Constitutional: No fevers, no weight gain or loss. Eyes: No discharge. No vision changes. HENT: No congestion, no sore throat, no ear pain. Cardiovascular: No chest pain, no palpitations. Respiratory: No shortness of breath, no wheezes, no cough. Gastrointestinal: No abdominal pain, no vomiting, no diarrhea. Genitourinary: No dysuria, no hematuria. Musculoskeletal: Normal range of motion. Skin: Erythema and swelling with warmth in lower extremities bilaterally. He has generalized pruritus. Neurological: No dizziness, weakness, sensory change, speech change. Endo/Heme/Allergies: No bruising or bleeding. No polydipsia. Pysch: no suicidality, no anxiety, no insomnia. All other systems reviewed and are negative. [facility] Medical History History of cellulitis Social History Smoking Status: Current every day smoker What tobacco products do you use: cigarettes Smoking packs per day: 0.5 Smoking cigarettes per day: 10.0 Do you use any of these nicotine containing products: None Second hand tobacco smoke exposure: No How often do you have a drink containing alcohol: never AUDIT-C Alcohol total score: 0 Non-prescribed substance use: denies use Exam Narrative: Exam Narrative: Constitutional: Well-developed, well-nourished, no acute distress. HEENT: Normocephalic, atraumatic. Neck: Normal range of motion. Nontender. Supple. Heart: Intact distal pulses. Lungs: No chest discomfort. No wheezes, rhonchi, or rales. Abdomen: Nontender. Back: Normal range of motion. Extremities: Normal range of motion. No injury. Skin: Intact. Bilateral lower extremity edema with erythema and increased warmth. Neurologic: No altered sensation. No weakness. Alert and oriented. Psychiatric: No suicidality. No anxiety or depression. No insomnia. Nursing notes and vitals signs are reviewed. Const: Vital Signs, click to edit/add: Vital Signs - 24 hr 05/08/22 15:18 Temperature 98.2 F Pulse Rate [Pulse Oximeter] 119 H Respiratory Rate 20 Blood Pressure [Ri ght Upper Arm] 170/84 H Pulse Oximetry 170 H Course Vital Signs Vital signs: Initial Vital Signs Temperature 98.2 F 05/08/22 15:18 Temperature Source Temporal Artery Scan 05/08/22 15:18 Pulse Rate 119 H 05/08/22 15:18 Pulse Rhythm 05/08/22 15:18 Respiratory Rate 20 05/08/22 15:18 Blood Pressure 170/84 H 05/08/22 15:18 Blood Pressure Mean 112 05/08/22 15:18 Blood Pressure Position Sitting 05/08/22 15:18 Pulse Oximetry 170 H 05/08/22 15:18 Vital Signs Temperature 98.2 F 05/08/22 15:18 Pulse Rate 119 H 12/26/22 15:18 Respiratory Rate 20 05/08/22 15:18 Blood Pressure 170/84 H 05/08/22 15:18 Pulse Oximetry 170 H 05/08/22 15:18 Temperature 98.2 F 05/08/22 15:18 Pulse Rate 119 H 05/08/22 15:18 Respiratory Rate 20 05/08/22 15:18 Blood Pressure 170/84 H 05/08/22 15:18 Pulse Oximetry 170 H 05/08/22 15:18 MDM - Skin/Abscess/Foreign Bdy MDM Narrative Medical decision making narrative: This patient comes in with what he feels is persistent cellulitis. This is present in both lower extremities bilaterally. A when raising his leg up and holding it there for a couple minutes there is no change in the erythema. His symptoms are suspicious for cellulitis but this presentation is occurring bilaterally and symmetrically. He does have chronic lower extremity edema. He states that he did get improvement when on Keflex about a month ago. I did discuss lab and imaging options with the patient which he declined in a process of shared decision making. He does have follow-up appointments this week. I stated that this may not be a cellulitis because of the bilaterally symmetrical presentation. However the increased warmth with redness and discomfort are very typical of cellulitis. He received a prescription for Keflex and triamcinolone cream to treat the pruritus. I advised using a moisturizing cream with alpha hydroxy such as Amlactin to treat the dryness and itchiness that he is a encountering. Discharge Plan Discharge Clinical Impression: Urticaria, Cellulitis Patient Disposition: Home, Self-Care Condition: Unchanged Additional Instructions: Take medication as prescribed. Follow up with doctor appointments as scheduled this week. Return if worsening. Use Amlactin for moisturizing lotion. Prescriptions: New triamcinolone acetonide 0.1 % cream 1 applic topical BID Qty: 30 0RF cephalexin 500 mg capsule 500 mg PO TID 10 Days Qty: 30 0RF No Action oxycodone 15 mg tablet 15 mg PO TID Follow Up/Referrals: Provider,Not a Local [Referring] - Stand Alone [facility]: [facility] Instructions
--- OUTSIDE RECORDS SUMMARY | 2022-05-08 16:00 | XMS_ITS ---
:1965 Author Organization [employer] 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 of opiate analgesic Problem Pain in left ankle M25.572 Active 2 18313400 and joints of left foot Problem Postlaminectomy M96.1 Active 2715 1001 syndrome, not elsewhere classified ALLERGIES No Known Allergies ENCOUNTERS Encounter Location Date Diagnosis [facility] & [address] [place] [address] Apr, Chronic pain syndrome [facility], [place], [place] G89.4 ; Other acute [facility] [address] postprocedural p ain G89.18 ; halfway (cur rent) use of opiate analge sic Z79.891 ; Fusion of spine, site unspecified M43.20 ; Acquired absence of unspecified foot Z89.439 ; Pain in left ank le and joints of left f oot M25.572 ; Pain i n right knee M25.561 and Postlaminectomy syndrome, not elsewhere cl assified M96.1 [facility] 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 - [address] Mar, Primary [address] [place] [phone] [facility] 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 [address] Jan, Chronic pain syndrome Primary [address] [place] [address], [place] [address] [facility] - [address] Jan, Primary [address] [place] [phone] [facility] 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 - [address] Jan, Primary [address] [place] [phone] [facility] - [address] Jan, Chronic pain syndrome Primary [address] [place] [address], [place] [address] [facility] 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 - [address] Dec, Primary [address] [place] [address], [place] [address] [facility] - [address] Dec, Chronic pain syndrome Primary [address] [place] [address], [place] [address] [facility] - [address] Dec, Chronic pain syndrome Primary [address] [place] [address], [place] [address] [facility] 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 - [address] Oct, Chronic pain syndrome Primary 5pm [facility], G89.4 ; [place] [address] postprocedural p ain G89.18 ; halfway (cur rent) use of opiate analge sic Z79.891 ; Fusion of spine, site unspecified M43.20 ; Acquired absence of unspecified foot Z89.439 ; Pain in left ank le and joints of left f oot M25.572 ; Pain i n right knee M25.561 and Postlaminectomy syndrome, not elsewhere cl assified M96.1 [facility] - [address] September, Chronic pain syndrome Primary 5pm [facility], [place] [address] [facility] - [address] September, Chronic pain syndrome Primary 5pm [facility], G89.4 ; [place] [address] postprocedural p ain G89.18 ; halfway (cur rent) use of opiate analge sic Z79.891 ; Fusion of spine, site unspecified M43.20 ; Acquired absence of unspecified foot Z89.439 ; Pain in left ank le and joints of left f oot M25.572 ; Pain i n right knee M25.561 and Postlaminectomy syndrome, not elsewhere cl assified M96.[address] Aug, Chronic pain syndrome [facility], [place], [place] G89.4 ; Other acute [facility] [address] postprocedural p ain G89.18 ; halfway (cur rent) use of opiate analge sic Z79.891 ; Fusion of spine, site unspecified M43.20 ; Acquired absence of unspecified foot Z89.439 ; Pain in left ank le and joints of left f oot M25.572 ; Pain i n right knee M25.561 and Postlaminectomy syndrome, not elsewhere cl assified M96.[address] Aug, Chronic pain syndrome [facility], [place] G89.4 ; Other acute [facility] [address] postprocedural p ain G89.18 ; 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 [address] Aug, Chronic pain syndrome [facility], [facility], [place] G89.4 ; Other acute [facility] [address] postprocedural p ain G89.18 ; halfway (cur rent) use of opiate analge sic Z79.891 ; Fusion of spine, site unspecified M43.20 ; Acquired absence of unspecified foot Z89.439 ; Pain in left ank le and joints of left f oot M25.572 ; Pain i n right knee M25.561 ; Postlaminectomy syndrome, not elsewhere cl assified M96.1 and Obesit y, unspecified E66. 9 [facility] - [address] Jul, Primary 5pm [place] [address] [facility] - [address] Jul, Long ter m (current) use of Primary 5pm [facility], opiate analge sic Z79.891 ; [place] [address] Chronic pain syn drome G89.4 ; Fusion o f spine, site unspecified M43.20 ; Acquired absence of unspecified foot Z89.439 ; Pain in left ank le and joints of left f oot M25.572 ; Pain i n right knee M25.561 ; Postlaminectomy syndrome, not elsewhere cl assified M96.1 ; Obesity, unspecified E66. 9 and Unspecified inte rnal derangement of r ight knee M23.91 [facility] - [address] Jun, Long ter m (current) use of Primary 5pm [facility], opiate analge sic Z79.891 ; [place] [address] Chronic pain syn drome G89.4 ; Fusion o f spine, site unspecified M43.20 ; Acquired absence of unspecified foot Z89.439 ; Pain in left ank le and joints of left f oot M25.572 ; Pain i n right knee M25.561 ; Postlaminectomy syndrome, not elsewhere cl assified M96.1 ; Obesity, unspecified E66. 9 and Unspecified inte rnal derangement of r ight knee M23.91 [place] [address] Jun, [facility] (current) use of [facility] [place] opiat e analgesic Z79.891 ; [facility] [address] Chronic pain syn drome G89.4 ; Fusion o f spine, site unspecified M43.20 ; Acquired absence of unspecified foot Z89.439 ; Pain in left ank le and joints of left f oot M25.572 ; Pain i n right knee M25.561 ; Postlaminectomy syndrome, not elsewhere cl assified M96.1 ; Obesity, unspecified E66. 9 and Unspecified inte rnal derangement of r ight knee M23.91 [place] [address] May, [facility] (current) use of [facility] [place] opiat e analgesic Z79.891 ; [facility] [address] Chronic pain syn drome G89.4 ; Fusion o f spine, site unspecified M43.20 ; Acquired absence of unspecified foot Z89.439 ; Pain in left ank le and joints of left f oot M25.572 ; Pain i n right knee M25.561 ; Postlaminectomy syndrome, not elsewhere cl assified M96.1 and Obesit y, unspecified E66. 9 [facility] - [address] May, [facility] (current) use of Primary 5pm [facility], opiate analge sic Z79.891 ; [place] [address] Chronic pain syn drome G89.4 ; Fusion o f spine, site unspecified M43.20 ; Acquired absence of unspecified foot Z89.439 ; Pain in left ank le and joints of left f oot M25.572 and Pain in right knee M25.561 [facility] - [address] Apr, Primary 5[place] [address] [facility] - [address] Apr, Primary 5[place] [address] IMMUNIZATIONS No Known Immunizations SOCIAL HISTORY Qualifiers Date Current Smoker REASON FOR REFERRAL FUNCTIONAL STATUS PLAN OF CARE Activity Details Follow Up 4 Weeks Reason:Pain manageme nt f/u Future Appointment Provider Name:Judy Cronin , 2022-05-23 12:30:00 AM, [address], 5pm, [place], [address], Pending Test Alcohol Metabolities Pending Test [facility] Comprehensive VITAL SIGNS Temperature 98.2 degrees Fahrenheit 2021-06-02 Height 82 in 2021-06-02 Weight 251 lbs 2021-06-02 BMI 26.24 kg/m2 2021-06-02 Blood pressure systolic 151 mm Hg 2021-06-02 Blood pressure diastolic 89 mm Hg 2021-06-02 MEDICATIONS Medication Instructions Dosage Frequency Start End Duration Statu s Date Date D3 50 mcg orally once a 1 cap(s) 30 day(s) Activ e day with some fat oxycodone 15 mg PO TID 1 tab 8h Active fentaNYL Active oxyCODONE 10 mg orally 3 times 1 tab(s) Dec, days Active daily sever pain 2021 HYDROmorphone Active Oxycodone orally TID 1 tab(s) 8h Apr, days Active Hydrochloride 15 2021 mg PROCEDURES No Known procedures RESULTS Name Result Date Reference Range Alcohol Metabolities 2021-06-02 ETHANOL BIOMARKERS Negative Ethyl Glucuronide Not Detected Ethyl Sulfate Not Detected [facility] Comprehensive 2021-06-02 Summary Report (Summary) FINAL PDF LCLS REASON FOR VISIT pain management f/u via phone, pain management f/u via phone, pain management f/u, Decrease update, update from [place], pain management f/u, call [place], pain management f/u, medication( prescrption) , change [...] torn meniscus right knee, medical ride cancelled, [employer]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 [employer] self [place] [id number] [address]
== END 2022-05-08 16:14 | disposition home or self-care (01) ==
PROVIDERS: Emergency Provider Emergency Medicine Emergency Medical Services; PCP Family Medicine
DX: L50.9 Urticaria, unspecified (principal); L03.115 Cellulitis of right lower limb; L03.116 Cellulitis of left lower limb
CPT/HCPCS: 99283; 99284

== ENCOUNTER 2023-04-15 12:03 | Emergency (ER) | payer OTHER, SELFPAY ==
[2023-04-15] VITALS (8 sets, daily range): BP systolic 150–176; BP diastolic 91–115; PULSE 83–121; RESP 16; TEMP 35.6; O2SAT 89–94; BMI 33.0
--- NOTE | 2023-04-15 12:22 | ED.GENADULT ---
HPI - General Adult General Chief complaint: Extremity Pain/Injury, Lower Stated complaint: R knee swelling Time Seen by Provider: 04/15/23 12:06 History of Present Illness HPI narrative: C/o his leg buckled in his living room this morning and landing on his knee. hx of back fusions . pt denies LOC , or dizziness before falling 57-year-old man presenting to the emergency department with complaint of right knee pain. Lives independently in his own apartment. He has had some episodes recently where feels spasms around both hips. Today felt such as spasm and his leg buckled and he landed on his knee. No other injury was sustained. He has been having some increased pain in his back. No loss of bowel or bladder control. No persistent weakness. There was no sense of palpitations or irregular heartbeats. No shortness of breath. Did not hit his head. Does have a history of low back pain. No longer taking regular opiates though at the end of our conversation he is wondering if possibly he could get some oxycodone for his pain. When discussing pain management says that ibuprofen never really worked for him. Denies any alcohol. Denies anticoagulation. Related Data Home Medications Medication Instructions Recorded Confirmed oxycodone 15 mg tablet 15 mg PO TID 05/08/22 05/08/22 Previous Rx's Medication Instructions Recorded cephalexin 500 mg capsule 500 mg PO TID 10 days #30 caps 05/08/22 triamcinolone acetonide 0.1 % 1 applic topical BID #30 grams 05/08/22 topical cream Allergies Allergy/AdvReac Type Severity Reaction Status Date / Time No Known Drug Allergies Allergy Verified 04/15/23 12:22 Review of Systems Status of ROS: Reports: 6 or more systems reviewed and unremarkable except as noted in History and below [facility] Medical History History of cellulitis ?Z87.2 - Personal history of diseases of the skin and subcutaneous tissue (ICD-10) Social History Smoking Status: Current every day smoker What tobacco products do you use: cigarettes Smoking packs per day: 0.5 Smoking cigarettes per day: 10.0 Do you use any of these nicotine containing products: None Second hand tobacco smoke exposure: No How often do you have a drink containing alcohol: never AUDIT-C Alcohol total score: 0 Non-prescribed substance use: denies use Exam Narrative: Exam Narrative: Pleasant. Flatter, distracted affect. Tinted eyeglasses. Breathing easily. Generally mildly tremulous. Head is atraumatic. Neck supple. Back appears to be nontender. No discomfort or pain to palpation over the legs other than the right knee generally. He has a fresh purpling circular bruising about 4 cm in diameter over the inferior medial knee. No laxity to varus or valgus stressors but he is quite tender to pressure required to do this with placement of my thumbs over his knee. Same for attempt at [employer]. Does have moderate joint effusion. Patella is midline. Significant demonstrable pain with flexion or extension of the knee. Const: Vital Signs, click to edit/add: Vital Signs - 24 hr 04/15/23 12:16 Temperature 96.1 F L Pulse Rate [Pulse Oximeter] 108 H Respiratory Rate 16 Blood Pressure [Ri ght Upper Arm] 159/91 H Pulse Oximetry 94 Oxygen Delivery Me thod Room Air Documenting provider has reviewed patient's vital signs: yes Course Vital Signs Vital signs: Initial Vital Signs Temperature 96.1 F L 04/15/23 12:16 Temperature Source Temporal Artery Scan 04/15/23 12:16 Pulse Rate 108 H 04/15/23 12:16 Respiratory Rate 16 04/15/23 12:16 Blood Pressure 159/91 H 04/15/23 12:16 Blood Pressure Mean 113 H 04/15/23 12:16 Blood Pressure Position Semi-Fowlers 04/15/23 12:16 Pulse Oximetry 94 04/15/23 12:16 Oxygen Delivery Method Room Air 04/15/23 12:16 Vital Signs Temperature 96.1 F L 04/15/23 12:16 Pulse Rate 108 H 04/15/23 12:16 Respiratory Rate 16 04/15/23 12:16 Blood Pressure 159/91 H 04/15/23 12:16 Pulse Oximetry 94 04/15/23 12:16 Oxygen Delivery Method Room Air 04/15/23 12:16 Temperature 96.1 F L 04/15/23 12:16 Pulse Rate 83 04/15/23 13:15 Respiratory Rate 16 04/15/23 12:16 Blood Pressure 176/115 H 04/15/23 14:02 Pulse Oximetry 92 04/15/23 13:15 Oxygen Delivery Method Room Air 04/15/23 12:16 Medications Administered Medications: Discontinued Medications Generic Name Dose Route Start Last Admin Trade Name Deb PRN Reason Stop Dose Admin Ibuprofen 600 mg 04/15/23 12:31 04/15/23 12:47 Ibuprofen 200 Mg Tablet PO 04/15/23 12:32 600 mg ONCE ONE Administration Oxycodone/Acetaminophen 1 tab 04/15/23 12:31 04/15/23 12:47 Oxycodone/Apap 5-325 Tablet PO 04/15/23 12:32 1 tab ONCE ONE Administration Medical Decision Making MDM Narrative Medical decision making narrative: I think it will be difficult to assess for internal knee derangement given degree of discomfort here. Certainly has a knee effusion. I believe a history of meniscectomy in this knee as well. I suppose possible tibial plateau fracture. I suspect more likely a contusion. Will initiate x-rays. I would like some pain management. Will given 1 tablet of 5/325 Percocet and 600 mg of ibuprofen. X-rays reviewed by me with some posterior accessory ossicles. I do not appreciate any acute abnormality other than what looks to be a mild effusion. I do return to find him flexing and extending the knee somewhat gingerly. Pain is improved but still certainly present. Placed in a knee immobilizer. He says he has crutches at home. See patient discharge plan Discharge Plan Discharge Clinical Impression: Effusion of knee, Acute knee pain, Contusion of right knee Patient Disposition: Home w/ Parent or Adult Condition: Stable Additional Instructions: Where this knee immobilizer for comfort over this next week. As discussed I would ice your knee 2-3 times daily over the next few days. And then as needed. Temporarily and maybe with a little food can take 600 mg of ibuprofen 3 times a day or alternative to that might be up to 500 mg of naproxen twice daily. Use your crutches to rest your leg. Please follow-up with primary care or Orthopedics if still not improved at around 10 days. It sounds like it is also time to have a visit about your back as well. Harold from [facility] Activity Level: No Restrictions Discharge Diet: Regular Prescriptions: No Action oxycodone 15 mg tablet 15 mg PO TID triamcinolone acetonide 0.1 % cream 1 applic topical BID Qty: 30 0RF cephalexin 500 mg capsule 500 mg PO TID 10 Days Qty: 30 0RF Follow Up/Referrals: Demetrio Peña MD [Primary Care Provider] - Stand Alone Forms: [email or web address] Info Instructions
--- NOTE | 2023-04-15 12:31 | CRLHL7_ITS ---
For Patients: As a result of the Century Cures Act, medical imaging exams and procedure reports are released immediately into your electronic medical record. You may view this report before your referring provider. If you have questions, please contact your health care provider. Indication: Trauma, fall with swelling and pain. Technique: Right knee 3 views. Comparison: None. Findings/Impression: Bones: Alignment is normal. No fractures or bone lesions. No sign of acute injury. Joint spaces: Trace pleural effusion may be evident. Moderate narrowing of the knee joint medial compartment. No other degenerative changes. Soft tissues: Unremarkable. Dictated by Geovany Grimes MD @ 04/15/2023 2:13:34 PM (Electronically Signed)
--- OUTSIDE RECORDS SUMMARY | 2023-04-15 12:38 | XMS_ITS | Patient Health Record ---
Author Name Unknown Organization [facility] - Primary Address [address] [place] [address] Care Team Providers Care Bight Maker Name Role Phone Different, PCP Primary Care Provider Judy Bagley Unavailable [phone] ALLERGIES No Known Allergies REASON FOR REFERRAL No Information MEDICATIONS Medication SIG (Take, Route, Frequency, Duration) Notes Start Date End Date Status OxyCODONE Hydrochloride 15 mg 1 tab(s) orally TID for 28 days 07/18/2022 Active oxyCODONE 10 mg 1 tab(s) orally 3 times daily sever pain for 22 days 12/20/2021 Active HYDROmorphone pain pump Active fentaNYL pain pump Active D3 50 mcg 1 cap(s) orally once a day with some fat for 30 day(s) Active oxycodone 15 mg 1 tab PO TID A ctive SOCIAL HISTORY Tobacco Use: Social History Observation Description Date Details (start date - stop date) Current Smoker NA - NA Sex Assigned At : Social History Observation Description Sex Assigned At Unknown Smoking Question Answer Notes Are you a: current smoker How often do you smoke cigarettes? every day How many cigarettes a day do you smoke? 6-10 How soon after you wake up do you smoke your fir st cigarette? 31-60 min Are you interested in quitting? Ready to quit PROBLEMS Problem Type ICD Code Onset Dates Problem Status W/U Status Risk SNOMED Code Notes Problem halfway (current) use of opiate analgesic (Z79.891) Active confirmed High ris k drug monitoring status (985862912) Problem Chronic pain syndrome (G89.4) Active confirmed Chronic bandar n syndrome (098642314) Problem Postlaminectomy syndrome, not elsewhere classified (M96.1) Active confirmed Post-lami necto my syndrome (93453453) Problem Pain in left ankle and joints of left foot (M25.572) Active confirmed Arthralgia of the ankle and/or foot (949877585) Problem Obesity, unspecified (E66.9) Active confirmed Obesity (574809983) Problem Unspecified internal derangement of right knee (M23.91) Active confirmed Derangem ent of knee (33670987) Problem Fusion of spine, site unspecified (M43.20) Active confirmed Problem Acquired absence of unspecified foot (Z89.439) Active confirmed Amputated foot (868875626) Encounters Encounter Location Date Provider Diagnosis [facility] [address] [place] [address] 04/25/2022 Judy Gringauz Chronic pain syndrom e G89.4 ; Other acute postprocedural pain G89.18 ; 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 ; Fusion of spine, site unspecified M43.20 ; Acquired absence of unspecified foot Z89.439 ; Pain in left ankle and joints of left foot M25.572 ; Pain in right knee M25.561 and Postlaminectomy syndrome, not elsewhere classified M96.1 [facility] [address] [place] [address] 05/23/2022 Judy Gringauz Chronic pain syndrom e G89.4 ; Other acute postprocedural pain G89.18 ; halfway (current) use of opiate analgesic Z79.891 ; Fusion of spine, site unspecified M43.20 ; Acquired absence of unspecified foot Z89.439 ; Pain in left ankle and joints of left foot M25.572 ; Pain in right knee M25.561 and Postlaminectomy syndrome, not elsewhere classified M96.1 [facility] [address] [place] [address] 06/20/2022 Judy Gringauz Chronic pain syndrom e G89.4 ; Other acute postprocedural pain G89.18 ; halfway (current) use of opiate analgesic Z79.891 ; Fusion of spine, site unspecified M43.20 ; Acquired absence of unspecified foot Z89.439 ; Pain in left ankle and joints of left foot M25.572 ; Pain in right knee M25.561 and Postlaminectomy syndrome, not elsewhere classified M96.1 [facility], [facility] [address] [place] [address] 07/18/2022 Judy Cronin Chronic pain syndrom e G89.4 ; Other acute postprocedural pain G89.18 ; halfway (current) use of opiate analgesic Z79.891 ; Fusion of spine, site unspecified M43.20 ; Acquired absence of unspecified foot Z89.439 ; Pain in left ankle and joints of left foot M25.572 ; Pain in right knee M25.561 and Postlaminectomy syndrome, not elsewhere classified M96.1 [facility] - Primary [address] [facility] [address] [address] 07/25/2022 Judy Cronin [facility] 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 Per [facility] records: His current pump dosing comes out to about 200 MME, combined with his current oral oxycodone, gives about 230 MME, which is now likely lower w/ the lowering of Dilaudid. Chronic pain conditions appear stable in the interim, possibly slightly exacerbated due to decreased activity levels s/p surgery and the acute post-surgical pain. He states his goal is still to get off the pump, and that [facility] does not wish to manage oral oxycodone. They did initiate Belbuca film, which he states he is not deriving any benefit from. We need to obtain updated records from [facility] to see what their plans are and current dosing of pain pump. In interim, will continue with the oxycodone-5 as above w/ no changes until we can connect w/ [facility]. Pt is being DC'd pain pump due to not being tolerated anymore. Pt states that in two weeks his pain team will be cutting his pain pump in half with medication to taper off. Wants Dr. Cronin to be primary pain doctor. PLAN: -Pt agreed to go down to 3 boluses at next visit Jun 01. -Cont oxycodone 15 mg 3x day once discussed taking over full pain management care once the pain team contacts us with further information. -F/u w/ [facility] as directed. -Fall precautions discussed. -F/u with [facility] to start transfer of care for pain management. Has appointment July 20. 06/20/2022 Chronic pain syndrom e (ICD-10 - G89.4) Assessment: 56 yo M w/ h/o s/p spinal fusion x 2, multiple trauma w/ fx LT ankle, RT foot amputation s/p osteomyelitis from previous hardware, here for pain management f/u s/p RT meniscal repair 08/10/21 POD #40. Per [facility] records: His current pump dosing comes out to about 200 MME, combined with his current oral oxycodone, gives about 230 MME, which is now likely lower w/ the lowering of Dilaudid. Chronic pain conditions appear stable in the interim, possibly slightly exacerbated due to decreased activity levels s/p surgery and the acute post-surgical pain. He states his goal is still to get off the pump, and that [facility] does not wish to manage oral oxycodone. They did initiate Belbuca film, which he states he is not deriving any benefit from. We need to obtain updated records from [facility] to see what their plans are and current dosing of pain pump. In interim, will continue with the oxycodone-5 as above w/ no changes until we can connect w/ [facility]. Pt is being DC'd pain pump due to not being tolerated anymore. Pt states that in two weeks his pain team will be cutting his pain pump in half with medication to taper off. Wants Dr. Cronin to be primary pain doctor. PLAN: -Pt agreed to go down to 3 boluses at next visit Jun 01. -Cont oxycodone 15 mg 3x day once discussed taking over full pain management care once the pain team contacts us with further information. -F/u w/ [facility] as directed. -Fall precautions discussed. -F/u with [facility] to start transfer of care for pain management. - 4 weeks f/u 05/23/2022 Chronic pain syndrom e (ICD-10 - G89.4) Assessment: 56 yo M w/ h/o s/p spinal fusion x 2, multiple trauma w/ fx LT ankle, RT foot amputation s/p osteomyelitis from previous hardware, here for pain management f/u s/p RT meniscal repair 08/10/21 POD #40. Per [facility] records: His current pump dosing comes out to about 200 MME, combined with his current oral oxycodone, gives about 230 MME, which is now likely lower w/ the lowering of Dilaudid. Chronic pain conditions appear stable in the interim, possibly slightly exacerbated due to decreased activity levels s/p surgery and the acute post-surgical pain. He states his goal is still to get off the pump, and that [facility] does not wish to manage oral oxycodone. They did initiate Belbuca film, which he states he is not deriving any benefit from. We need to obtain updated records from [facility] to see what their plans are and current dosing of pain pump. In interim, will continue with the oxycodone-5 as above w/ no changes until we can connect w/ [facility]. Pt is being DC'd pain pump due to not being tolerated anymore. Pt states that in two weeks his pain team will be cutting his pain pump in half with medication to taper off. Wants Dr. Cronin to be primary pain doctor. PLAN: -Pt agreed to go down to 3 boluses at next visit Jun 01. -Cont oxycodone 15 mg 3x day once discussed taking over full pain management care once the pain team contacts us with further information. -F/u w/ [facility] as directed. -Fall precautions discussed. - 4 weeks f/u 04/25/2022 Chronic pain syndrom e (ICD-10 - G89.4) Assessment: 56 yo M w/ h/o s/p spinal fusion x 2, multiple trauma w/ fx LT ankle, RT foot amputation s/p osteomyelitis from previous hardware, here for pain management f/u s/p RT meniscal repair 08/10/21 POD #40. Per [facility] records: His current pump dosing comes out to about 200 MME, combined with his current oral oxycodone, gives about 230 MME, which is now likely lower w/ the lowering of Dilaudid. Chronic pain conditions appear stable in the interim, possibly slightly exacerbated due to decreased activity levels s/p surgery and the acute post-surgical pain. He states his goal is still to get off the pump, and that [facility] does not wish to manage oral oxycodone. They did initiate Belbuca film, which he states he is not deriving any benefit from. We need to obtain updated records from [facility] to see what their plans are and current dosing of pain pump. In interim, will continue with the oxycodone-5 as above w/ no changes until we can connect w/ [facility]. Pt is being DC'd pain pump due to not being tolerated anymore. Pt states that in two weeks his pain team will be cutting his pain pump in half with medication to taper off. Wants Dr. Cronin to be primary pain doctor. PLAN: -Pt agreed to go down to 3 boluses at next visit Jun 01. -Cont oxycodone 15 mg 3x day once discussed taking over full pain management care once the pain team contacts us with further information. -F/u w/ [facility] as directed. -Fall precautions discussed. - 4 weeks f/u 04/25/2022 Other acute postprocedural pain (ICD-10 - G89.18) 56 yo M w/ h/o s/p spinal fusion x 2, multiple trauma w/ fx LT ankle, RT foot amputation s/p osteomyelitis from previous hardware, here for pain management f/u s/p RT meniscal repair 08/10/21. He has been doing ok w/ active therapy rehab program to date. The RT knee appears better objectively today. He has f/u w/ ortho 11/28/21. In terms of pain, he feels he needs to continue with the 5x dosing with oxycodone for now. It appears overall his pain is reasonably managed w/ pain pump and 5x daily dosing of oxycodone as above. As above, need to clarify trt plan with [facility]. PLAN: -Discussed safety protocols in his residence s/p surgery, including care with rugs on tile to avoid slipping when using crutches and to avoid twisting of the knee and practice very careful ambulation. -see chronic pain above. 05/23/2022 Other acute postprocedural pain (ICD-10 - G89.18) 56 yo M w/ h/o s/p spinal fusion x 2, multiple trauma w/ fx LT ankle, RT foot amputation s/p osteomyelitis from previous hardware, here for pain management f/u s/p RT meniscal repair 08/10/21. He has been doing ok w/ active therapy rehab program to date. The RT knee appears better objectively today. He has f/u w/ ortho 11/28/21. In terms of pain, he feels he needs to continue with the 5x dosing with oxycodone for now. It appears overall his pain is reasonably managed w/ pain pump and 5x daily dosing of oxycodone as above. As above, need to clarify trt plan with [facility]. PLAN: -Discussed safety protocols in his residence s/p surgery, including care with rugs on tile to avoid slipping when using crutches and to avoid twisting of the knee and practice very careful ambulation. -see chronic pain above. 06/20/2022 Other acute postprocedural pain (ICD-10 - G89.18) 56 yo M w/ h/o s/p spinal fusion x 2, multiple trauma w/ fx LT ankle, RT foot amputation s/p osteomyelitis from previous hardware, here for pain management f/u s/p RT meniscal repair 08/10/21. He has been doing ok w/ active therapy rehab program to date. The RT knee appears better objectively today. He has f/u w/ ortho 11/28/21. In terms of pain, he feels he needs to continue with the 5x dosing with oxycodone for now. It appears overall his pain is reasonably managed w/ pain pump and 5x daily dosing of oxycodone as above. As above, need to clarify trt plan with [facility]. PLAN: -Discussed safety protocols in his residence s/p surgery, including care with rugs on tile to avoid slipping when using crutches and to avoid twisting of the knee and practice very careful ambulation. -see chronic pain above. 07/18/2022 Other acute postprocedural pain (ICD-10 - G89.18) 56 yo M w/ h/o s/p spinal fusion x 2, multiple trauma w/ fx LT ankle, RT foot amputation s/p osteomyelitis from previous hardware, here for pain management f/u s/p RT meniscal repair 08/10/21. He has been doing ok w/ active therapy rehab program to date. The RT knee appears better objectively today. He has f/u w/ ortho 11/28/21. In terms of pain, he feels he needs to continue with the 5x dosing with oxycodone for now. It appears overall his pain is reasonably managed w/ pain pump and 5x daily dosing of oxycodone as above. As above, need to clarify trt plan with [facility]. PLAN: -Discussed safety protocols in his residence s/p surgery, including care with rugs on tile to avoid slipping when using crutches and to avoid twisting of the knee and practice very careful ambulation. -see chronic pain above. 07/18/2022 halfway (current) use of opiate analgesic (ICD-10 - Z79.891) 06/02/21 LC urine tox- pos hydromorphone, fentanyl and norfentanyl. Neg oxy. Neg etoh metabolites. Neg illicits. Consistent with pain pump and pt likely used up limited oral oxycodone per history due to incr ankle/knee pain. Appropriate. 11/27/21 LC urine tox- pos hydromorphone, fentanyl and norfentanyl. Neg oxy. Neg etoh met. Neg Oxycodone as above. 06/20/2022 halfway (current) use of opiate analgesic (ICD-10 - Z79.891) 06/02/21 LC urine tox- pos hydromorphone, fentanyl and norfentanyl. Neg oxy. Neg etoh metabolites. Neg illicits. Consistent with pain pump and pt likely used up limited oral oxycodone per history due to incr ankle/knee pain. Appropriate. 11/27/21 LC urine tox- pos hydromorphone, fentanyl and norfentanyl. Neg oxy. Neg etoh met. Neg Oxycodone as above. 05/23/2022 halfway (current) use of opiate analgesic (ICD-10 - Z79.891) 06/02/21 LC urine tox- pos hydromorphone, fentanyl and norfentanyl. Neg oxy. Neg etoh metabolites. Neg illicits. Consistent with pain pump and pt likely used up limited oral oxycodone per history due to incr ankle/knee pain. Appropriate. 11/27/21 LC urine tox- pos hydromorphone, fentanyl and norfentanyl. Neg oxy. Neg etoh met. Neg Oxycodone as above. 04/25/2022 halfway (current) use of opiate analgesic (ICD-10 - Z79.891) 06/02/21 LC urine tox- pos hydromorphone, fentanyl and norfentanyl. Neg oxy. Neg etoh metabolites. Neg illicits. Consistent with pain pump and pt likely used up limited oral oxycodone per history due to incr ankle/knee pain. Appropriate. 11/27/21 LC urine tox- pos hydromorphone, fentanyl and norfentanyl. Neg oxy. Neg etoh met. Neg Oxycodone as above. 04/25/2022 Fusion of spine, sit e unspecified (ICD-10 - M43.20) see above. 06/20/2022 Fusion of spine, sit e unspecified (ICD-10 - M43.20) see above. 05/23/2022 Fusion of spine, sit e unspecified (ICD-10 - M43.20) see above. 07/18/2022 Fusion of spine, sit e unspecified (ICD-10 - M43.20) see above. 07/18/2022 Acquired absence of unspecified foot (ICD-10 - Z89.439) see chronic pain above. continue with fall precautions, use assitive devices when able. 05/23/2022 Acquired absence of unspecified foot (ICD-10 - Z89.439) see chronic pain above. continue with fall precautions, use assitive devices when able. 06/20/2022 Acquired absence of unspecified foot (ICD-10 - Z89.439) see chronic pain above. continue with fall precautions, use assitive devices when able. 04/25/2022 Acquired absence of unspecified foot (ICD-10 - Z89.439) see chronic pain above. continue with fall precautions, use assitive devices when able. 04/25/2022 Pain in left ankle and joints of left foot (ICD-10 - M25.572) see chronic pain above. 05/23/2022 Pain in left ankle and joints of left foot (ICD-10 - M25.572) see chronic pain above. 06/20/2022 Pain in left ankle and joints of left foot (ICD-10 - M25.572) see chronic pain above. 07/18/2022 Pain in left ankle and joints of left foot (ICD-10 - M25.572) see chronic pain above. 06/20/2022 Pain in right knee (ICD-10 - M25.561) see acute pain above. 07/18/2022 Pain in right knee (ICD-10 - M25.561) see acute pain above. 05/23/2022 Pain in right knee (ICD-10 - M25.561) see acute pain above. 04/25/2022 Pain in right knee (ICD-10 - M25.561) see acute pain above. 04/25/2022 Postlaminectomy syndrome, not elsewhere classified (ICD-10 - M96.1) stable, see above. 05/23/2022 Postlaminectomy syndrome, not elsewhere classified (ICD-10 - M96.1) stable, see above. 07/18/2022 Postlaminectomy syndrome, not elsewhere classified (ICD-10 - M96.1) stable, see above. 06/20/2022 Postlaminectomy syndrome, not elsewhere classified (ICD-10 - M96.1) stable, see above. PLAN OF TREATMENT No Information Insurance Providers Payer Name Payer Address Payer Phone Subscriber Number Group Number Insured Name Patient Relationship to Insured Coverage Start Date Coverage End Date [employer] [address] [address] [place] [address] [id number] Gianni Mijares Self - patient is the insured MEDICAL (GENERAL) HISTORY Medical History History ICD Code partial right foot amputation Chronic back pain Surgical History Surgery Date(Month/Year) Fusion of back 2012 partial right foot amputation 2007 Rt knee meniscal repair, arthroscopic Hospitalization History Reason Date(Month/Year) ED for Cellulitis 03/2022
--- OUTSIDE RECORDS SUMMARY | 2023-04-15 12:39 | XMS_ITS | Continuity of Care Document ---
Author Name Unknown Organization [facility] Address [address] [place] [address] Phone Care Team Providers Care In Flight Crew Member Name Role Phone Trenton Ware MD Unavailable Unavailable Allergies, Adverse Reactions, Alerts Substance Reaction Status Criticality No Known Allergies Active No Inform ation Medications Medication Instructions Dosage Effective Dates (start - stop) Status Comments DILAUDID (unknown strength) Not Available - Active CYMBALTA (unknown strength) Not Available - Active TYLENOL (unknown strength) Not Available - Active EFFEXOR (unknown strength) Not Available - Active Procedures Procedure Date Office/Outpatient Visit,Est, Mod 2013 Office/Outpatient Visit,Est, Mod 2013 X-Ray Exam Lower Spine 2-3 Views 2013 Office/Outpatient Visit,Est, Mod 2013 X-Ray Exam Lower Spine 2-3 Views 2013 Office/Outpatient Visit,Est, Mod 2012 X-Ray Exam Lower Spine 2-3 Views 2012 Office/Outpatient Visit,Est, Mod 2012 X-Ray Exam Lower Spine 2-3 Views 2012 Postop Followup Visit X-Ray Exam Lower Spine 2-3 Views 2012 Postop Followup Visit Lumbar Spine Fusion, Posterolateral Lumbar Spine Fusion W/Bone Graft 2012 Laminotomy, Reexplr 1 Intrspc Lumbr Insert Spine Fixation, Posterior 2012 Apply Spinal Prosthetic Device 13 Allograft, Spine Surg, Morselized Autograft, Spine Surgery, Local 013 Pa Assist Lumbar Spine Fusion, Posterola teral Pa Assist Laminotomy, Reexplr 1 Intrspc Lumbr Pa Assist Insert Spine Fixation, Posteri or Office/Outpatient Visit,Est, Mod 2012 Office/Outpatient Visit,Est, Mod 2011 Postop Followup Visit Laminotomy, Reexplr 1 Intrspc Lumbr Pa Assist Laminotomy, Reexplr 1 Intrspc Lumbr Office/Outpatient Visit,Est, Low 2011 Office/Outpatient Visit,Est, Mod 2011 Postop Followup Visit Decompress Lumbar Spinalcord Seg 2011 Assist Decompress Lumbar Spinalcord Seg Office/Outpatient Visit,Est, Mod 2011 Office/outpatient visit,new, mod 2009 X-ray exam lwr spine, min 4 views Advance Directives Directive Yes / No Effective Date File Name No Information Encounters Encounter Description Practice Location Reason(s) For Visit Diagnoses Date Provider Providers Copied on Encounter [facility], [address], [place], [place], [id number], [place] tel:[phone] No Information 8 Jeanie Chowdhury. [facility] [place], [address] [place] [address], [address], [id number], [place]. tel:[phone] Office/Outpa tient Visit,Est, Mod Z [facility] [place], [address] [place] [address], [address], [place] tel:[phone] [facility] - Ariana ObesityLumbag oOVERWEIGHT 4 Mehbod Amir. [facility] [place], [address] [place] [address] [place] [address], [id number], [place]. tel:[phone] Office/Outpa tient Visit,Est, Mod Z [facility] [place], [address] [place] [address], [address], [place] tel:[phone] TIMOTHY - Ariana Back Pain (chief complaint) OVERWEIGHT 4 Mehbod Amir. [facility], [address], [place], [place], [id number], [place]. tel:[phone] Office/Outpa tient Visit,Est, Mod Z [facility], [address], [place], [address], [place] tel:[phone] [facility] [employer] No Information Koffi- 8-201 4 Mehbod Amir. [facility], [address], [place], [place], [id number], [place]. tel:[phone] Office/Outpa tient Visit,Est, Mod Z [facility], [address], [place], [address], [place] tel:[phone] [facility] [employer] No Information Apr- 6201 3 Mehbod Amir. [facility], [address], [place], [place], [id number], [place]. tel:[phone] Office/Outpa tient Visit,Est, Mod Z [facility], [address], [place], [address], [place] tel:[phone] [employer] No Information Sep-2 3-201 3 Dom Aden. [facility], [address] , [place], [address], [place]. tel:[phone] Z [facility], [address], [place], [address], [place] tel:[phone] [facility] No Information Nov-2 3 Mehbod Amir. [facility], [address], [place], [place], [id number], [place]. tel:[phone] Z [facility], [address], [place], [address], [place] tel:[phone] [facility] No Information Nov-0 1-201 3 Dom dAen. [facility], [address] , [place], [address], [place]. tel:[phone] Z [facility], [address], [place], [address], [place] tel:[phone] [facility] No Information Koffi- 9-201 3 Mehbod Amir. [facility], [address], [place], [place], [id number], [place]. tel:[phone] Office/Outpa tient Visit,Est, Mod Z [facility], [address], [place], [address], [place] tel:[phone] [employer] No Information Mar-0 8-201 3 Mehbod Amir. [facility], [address], [place], [place], [id number], [place]. tel:[phone] Office/Outpa tient Visit,Est, Mod Z [facility], [address], [place], [address], [place] tel:[phone] [employer] No Information Mar-2 6-201 2 Mehbod Amir. [facility], [address] [place] [address] [address], [place], [place], [id number], [place]. tel:[phone] Z [facility], [address] [place], [place] [address] [address], [place], [address], [place] tel:[phone] [employer] No Information Feb-1 1-201 2 Mehbod Amir. [facility], [address], [place], [place], [id number], [place]. tel:[phone] Z [facility], [address], [place], [address], [place] tel:[phone] [facility] No Information Dec-2 2-201 2 Mehbod Amir. [facility], [address], [place], [place], [id number], [place]. tel:[phone] Office/Outpa tient Visit,Est, Low Z [facility], [address], [place], [address], [place] tel:[phone] [employer] No Information Nov-3 0-201 2 Mehbod Amir. [facility], [address], [place], [place], [id number], [place]. tel:[phone] Office/Outpa tient Visit,Est, Mod Z [facility], [address], [place], [address], [place] tel:[phone] [employer] LUMBAGO Nov- 2 Mehbod Amir. [facility], [address], [place], [place], [id number], [place]. tel:[phone] Z [facility], [address], [place], [address], [place] tel:[phone] [employer] No Information Aug-0 2 No Information Z [facility], [address], [place], [address], [place] tel:[phone] [facility] No Information Jul- 2 No Information Office/Outpa tient Visit,Est, Mod Z [facility], [address], [place], [address], [place] tel:[phone] [employer] No Information 2 No Information Office/outpa tient visit,new, mod Z [facility], [address], [place], [address], [place] tel:[phone] [employer] No Information Jul-2 0 No Information Family History Family Member Type Diagnosis Age At Onset No Information Payers Payer name Insurance type Covered libertarian ID Authoriza tion(s) No Information Social History Type Description Quantity Date Captured Comments Sex Male Smoking Status No Information Chief Complaint And Reason For Visit No Information Reason For Referral Reason For Referral No Information Plan Of Treatment Date Type Action Status Future Order: Radiology Order AP Lateral Lumbar (APLatLumb), Ordered on: Ordered Future Order: Radiology Order AP Lateral Lumbar (APLatLumb), Ordered on: Ordered History Of Present Illness Encounter Date Complaint History Of Prese nt Illness Back Pain Functional Status Date Functional Assessmen t No Information Instructions Date Instruction Additional Infor matthelma Weight Management Related to Obe sity, unspecified Weight Management Related to Ove rweight Weight Management Related to Ove rweight Assessments Type Assessment Date No Information Patient Care Teams Name Effective Dates (start - stop) Status Members No Information
[2023-04-15] MEDS: IBUPROFEN 200 MG TABLET 600 MG PO (12:47)
[2023-04-15] MEDS: OxyCODONE/APAP 5-325 TABLET 1 TAB PO (12:47)
== END 2023-04-15 14:35 | disposition home or self-care (01) ==
PROVIDERS: Emergency Provider Family Medicine; PCP Family Medicine
DX: M25.461 Effusion, right knee (principal); S80.01XA Contusion of right knee, initial encounter; W19.XXXA Unspecified fall, initial encounter
CPT/HCPCS: 73562; 99283; 99284; A9270

== ENCOUNTER 2023-11-28 08:02 | Emergency (ER) | payer OTHER, SELFPAY ==
[2023-11-28 08:08] VITALS: BP 156/91; PULSE 98; RESP 18; TEMP 36.8; O2SAT 94; BMI 31.7
--- NOTE | 2023-11-28 08:11 | CRLHL7_ITS ---
For Patients: As a result of the Century Cures Act, medical imaging exams and procedure reports are released immediately into your electronic medical record. You may view this report before your referring provider. If you have questions, please contact your health care provider. Indication: Fall, left hip pain Technique: Left hip 2 views an AP pelvis Comparison: None Findings: Bones: Alignment is normal. No fractures or bone lesions. Joint spaces: Joint spaces are preserved. No degenerative changes. Soft tissues: Hernia mesh overlies the pelvis. Pump overlies the left iliac crest with catheter extending over the lumbar spine. Status post L4-5 posterior fusion. Impression: No evidence of fracture or dislocation. Dictated by Aris Gutierrez MD @ 11/28/2023 9:04:14 AM (Electronically Signed)
--- NOTE | 2023-11-28 08:11 | CRLHL7_ITS ---
For Patients: As a result of the Century Cures Act, medical imaging exams and procedure reports are released immediately into your electronic medical record. You may view this report before your referring provider. If you have questions, please contact your health care provider. Indication: Fall, right knee pain Technique: Right knee 2 views Comparison: None Findings: Bones: No evidence of fracture. Joint spaces: Mild medial compartment narrowing with moderate knee effusion. Soft tissues: Unremarkable. Impression: No evidence of fracture or dislocation. Mild right knee osteoarthritis with moderate knee effusion. Dictated by Aris Gutierrez MD @ 11/28/2023 9:07:47 AM (Electronically Signed)
--- NOTE | 2023-11-28 08:12 | ED.GENADULT ---
HPI - General Adult General Chief complaint: Fall/Minor Trauma Stated complaint: Fall, knee hip pain Time Seen by Provider: 11/28/23 08:06 History of Present Illness HPI narrative: [age] YEAR WHITE MALE FELL WITH HIS FOOT CAUGHT UNDER A TABLE INJURING HIS RIGHT KNEE AND LEFT HIP. He is on chronic oxycodone for filled back fusion, he has a right forefoot amputation. He does report he is diabetic. No other specific complaints no neck pain back pain. He has chronic back pain but nothing new from the fall. He has had a similar injury in the past. No chest pain, no fevers. He does report he falls fairly regularly. Related Data Home Medications ?Medication ?Instructions ?Recorded ?Confirmed gabapentin 300 mg capsule 300 mg PO 3XD 11/28/23 11/28/23 Allergies Allergy/AdvReac Type Severity Reaction Status Date / Time No Known Drug Allergies Allergy Verified 04/15/23 12:22 Review of Systems Status of ROS: Reports: 6 or more systems reviewed and unremarkable except as noted in History and below [facility] Medical History History of cellulitis ?Z87.2 - Personal history of diseases of the skin and subcutaneous tissue (ICD-10) Social History Smoking Status: Current every day smoker What tobacco products do you use: cigarettes Smoking packs per day: 0.5 Smoking cigarettes per day: 10.0 Do you use any of these nicotine containing products: None Second hand tobacco smoke exposure: No How often do you have a drink containing alcohol: never AUDIT-C Alcohol total score: 0 Non-prescribed substance use: denies use Exam Narrative: Exam Narrative: Objective: In general patient is in no apparent distress he is alert oriented x3 HEENT is unremarkable neck is supple back exam unremarkable his left hip shows full range of motion is got some mild tenderness over the lateral greater trochanteric bursa area no bruising noted no leg shortening or internal rotation left lower extremity right lower extremity shows a forefoot amputation he has got some chronic stasis changes on his leg He has got a knee effusion slight he has got no instability of his knee flexion-extension any limited to any significant degree is painful for him He seems to jerk out in pain when his leg is moved. Patient is ambulatory with a walker he is neurologically nonfocal. Const: Vital Signs, click to edit/add: Vital Signs - 24 hr 11/28/23 08:08 Temperature 98.3 F Pulse Rate [Pulse Oximeter] 98 Respiratory Rate 18 Blood Pressure [Le ft Upper Arm] 156/91 H Pulse Oximetry 94 Oxygen Delivery Me thod Room Air Course Vital Signs Vital signs: Initial Vital Signs Temperature 98.3 F 11/28/23 08:08 Temperature Source Temporal Artery Scan 11/28/23 08:08 Pulse Rate 98 11/28/23 08:08 Respiratory Rate 18 11/28/23 08:08 Blood Pressure 156/91 H 11/28/23 08:08 Blood Pressure Mean 112 H 11/28/23 08:08 Blood Pressure Position Supine 11/28/23 08:08 Pulse Oximetry 94 11/28/23 08:08 Oxygen Delivery Method Room Air 11/28/23 08:08 Vital Signs Temperature 98.3 F 11/28/23 08:08 Pulse Rate 98 11/28/23 08:08 Respiratory Rate 18 11/28/23 08:08 Blood Pressure 156/91 H 11/28/23 08:08 Pulse Oximetry 94 11/28/23 08:08 Oxygen Delivery Method Room Air 11/28/23 08:08 Temperature 98.3 F 11/28/23 08:08 Pulse Rate 98 11/28/23 08:08 Respiratory Rate 18 11/28/23 08:08 Blood Pressure 156/91 H 11/28/23 08:08 Pulse Oximetry 94 11/28/23 08:08 Oxygen Delivery Method Room Air 11/28/23 08:08 Medications Administered Medications: Discontinued Medications Generic Name Dose Route Start Last Admin Trade Name Deb PRN Reason Stop Dose Admin Hydrocodone Bitart/Acetaminophen 1 tab 11/28/23 08:56 11/28/23 09:03 Hydrocodone/Acetamin 7.5-325 Tablet PO 11/28/23 08:57 1 tab ONCE ONE Administration Medical Decision Making MDM Narrative Medical decision making narrative: [age] year white male with a fall right knee pain left hip pain will check x-rays. He has chronic pain from back fusion in the past, forefoot amputation on the right. Check the x-rays as above disposition pending findings. Discharge Plan Discharge Clinical Impression: Fall, Knee pain, right Patient Disposition: Home w/ Parent or Adult Condition: Stable Additional Instructions: Ice to the knee for 10 minutes 3 to 5 times a day, follow up with regular doctor next 2-3 days, knee immobilizer, continue walker. Will send home with a few pain medications to use sparingly cautioned about sedative affect. Recheck with your regular doctor as described. Activity Level: Light activity Discharge Diet: Regular Prescriptions: No Action gabapentin 300 mg capsule 300 mg PO 3XD Follow Up/Referrals: Demetrio Peña MD [Primary Care Provider] - Stand Alone Forms: [employer] Info Instructions
--- OUTSIDE RECORDS SUMMARY | 2023-11-28 08:47 | XMS_ITS | Clinical Summary ---
Author Organization [facility] Address [place], [place] [address] Care Team Providers Care Lead Warehouse Associate Name Role Phone Clinic, No Pcp Or Primary Care Provider Unavaila ble Allergies Active Allergy Reactions Criticality Noted Date Comments Gabapentin Other - Describe In Comment Field High 03/13/2008 Burning, stinging tongue - possible swelling Methocarbamol Tongue Swelling,Angioedema High 08/07/2008 Tongue Medications Medication Sig Dispensed Refills Start Date End Date Status olopatadine (PATADAY) 0.2 % ophthalmic solutionIndication s:Seasonal allergies Place 1 Drop into both eyes once daily. 5 mL 08/31/2023 Active loratadine (CLARITIN) 10 mg tabletIndications: Allergic rhinitis, unspecified seasonality, unspecified trigger,Seasonal allergies Take 1 Tablet (10 mg) by mouth once daily. 90 Tablet 1 08/31/2023 Active sodium chloride (OCEAN) 0.65 % nasal solutionIndication s:Allergic rhinitis, unspecified seasonality, unspecified trigger Inhale 2 Sprays into affected nostril(s) once daily. 45 mL 08/31/2023 Active fluticasone (50 mcg per actuation) nasal solution (FLONASE)Indicatio ns:Allergic rhinitis, unspecified seasonality, unspecified trigger Inhale 2 Sprays to both nostrils once daily. 16 g 10/05/2023 Active Belbuca [address] 150 mcg in mouth, between cheek & gum every 12 hours. 11/27/2022 Active montelukast (SINGULAIR) 10 mg tabletIndications: Allergic rhinitis, unspecified seasonality, unspecified trigger,Seasonal allergies Take 1 Tablet (10 mg) by mouth at bedtime. 90 Tablet 3 11/06/2023 Active pseudoephedrine (SUDAFED) 30 mg tabletIndications: Allergic rhinitis, unspecified seasonality, unspecified trigger,Seasonal allergies Take 1 Tablet (30 mg) by mouth every 6 hours if needed for Nasal Congestion for up to 4 days. 16 Tablet 11/06/2023 11/10/2023 Active Problems Problem Noted Date Diagnosed Date Arthritis 11/06/2023 Spondylolisthesis, lumbar region 11/06/2023 Complication of surgical procedure 02/01/2023 S/P right knee arthroscopy 08/23/2021 Degeneration of intervertebr al disc of lumbar spine without disc herniation 11/05/2019 Lumbar spondylosis 11/05/2019 History of transmetatarsal amputation of right f oot 03/27/2019 Postlaminectomy syndrome, not elsewhere classifi ed 02/27/2019 Retrocalcaneal bursitis (back of heel), left 09/2018 Osteomyelitis of metatarsal 03/21/2018 Depression 02/13/2018 Controlled substance agreement signed 05/24/2017 Overview: Douglas Ramírez MD [facility] Gracia Alexandre CMA....05/24/2017 7:20 AM Drug-seeking behavior 04/22/2013 Overview: Overview: Drug-seeking behavior and possible diversion Drug dependence 04/16/2013 Overview: primarily alcohol, but h/o multiple drug use in past including cocaine, opiates, amphetamines, marijuana Overview: ETOH clean x 2 years, cocain and meth and tx x 3 Overview: Overview: primarily alcohol, but h/o multiple drug use in past including cocaine, opiates, amphetamines, marijuana Chronic back pain 03/26/2013 Microhematuria 11/04/2012 Metabolic acidosis, normal anion gap (NAG) 11/04 Leucocytosis 11/01/2012 Lumbar spinal stenosis 10/31/2012 Anemia 10/31/2012 Sinus tachycardia 10/31/2012 Cardiac arrhythmia 10/31/2012 Overview: Overview: ICD 10 Lumbar disc herniation with radiculopathy 2011 Displacement of lumbar intervertebral disc 01/02 Moderate major depression 06/24/2010 CTS (carpal tunnel syndrome) 05/30/2010 Family history of aortic aneurysm 05/30/2010 Urinary hesitancy 05/30/2010 Hereditary and idiopathic peripheral neuropathy 01/25/2009 CUBITAL TUNNEL SYNDROME 09/19/2007 Lesion of plantar nerve 05/02/2007 Depressive disorder, not elsewhere classified Tobacco use disorder 06/13/2006 Chronic pain syndrome 06/13/2006 Overview: Foot Lower limb amputation, foot 06/13/2006 Overview: R foot Tear of meniscus of right knee as current injury Resolved Problems Problem Noted Date Diagnosed Date Resolved Date Strain of left Achilles tendon 01/16/2019 11/23/2020 Wound of right foot 02/13/2018 11/24/19 21 Controlled substance agreement signed 01/20/2013 02/27/2018 Acute kidney injury 10/31/2012 11/24/19 21 NARCOTIC CONTRACT 01/17/2008 02/20/2008 Overview: No contract. Still not an opiate candidate from UPC standpoint. Narcotic contract 03/29/2007 12/30/2007 Overview: signed 07/09/06 08-06-2006 [facility] no longer prescribing narcotic medications Pain in limb 08/29/2006 11/06/2023 Alcohol abuse, unspecified 06/13/2006 0 11/23/2020 Backache, unspecified 06/13/20062020 Overview: chronic Myocarditis, unspecified 06/13/2006 Overview: Remote HX of Encounters Date Type Department Care Team Description 11/06/2023 2:30 PM CDT Telemedicine [facility] [address] [place] [address] Saige Fairbanks DO Telehealth (No vitals ) 11/06/2023 Travel 11/05/2023 Travel 10/04/2023 Refill [facility] [address] [place] [address] Lisseth Armando PA Refill Request (Fluticasone (50 Mcg Per Actuation) Nasal) 08/31/2023 1:10 PM CDT Office Visit [address] [phone] Lisseth Armando PA Consult (Allergy concern, has nasal congestion with a cough occasionally,the cough is not productive. Patient report my eyes fell swollen. Patient report symptoms for about a month. ) 08/31/2023 Travel from Last 3 Months Immunizations Name Administration Dates Next Due COVID-19 vaccine (Moderna 100mcg/0.5mL) PF, MDV 04/14/2021,07/07/2020,06/09/2020 COVID-19 vaccine (Pfizer-Bio NTech 30mcg/0.3mL) 12YO+ BIVALENT PF, MDV 03/20/2022 Influenza, IIV3 (Age >=3 years) 05/21/2013 Influenza, IIV4 03/06/2023,,01/22/2020,2016 Influenza, IIV4 (=>6mos) MDV 03/01/2022 Influenza,CCIIV4 PRESERV FREE 02/22/2018 Td (Age >=7 Years) 08/13/2004,10/08/2002, 001 Td, Preservative Free (age > = 7 Years) 08/13/2004 Tdap 12/15/2014 Family History Medical History Relation Name Comments Cancer Brother 5 brain Cancer Brother 6 brain Diabetes Sister 2 Relation Name Status Comments Brother 1 Alive Brother 2 Alive Brother 3 Alive Brother 4 Alive Brother 5 Brother 6 Father (Age 69) Mother Sister 1 Alive Sister 2 Social History Tobacco Use Types Packs/Day Years Used Date Smoking Tobacco: Every Day Cigarettes 0.5 25 Smokeless Tobacco: Never Tobacco Cessation:Ready to Q uit: Not Asked; Counseling Given: Not Answered Comments:smoking 4-5 cigs per day Alcohol Use Standard Drinks/Week Comments No 26.7 (1 standard dri nk = 0.6 oz pure alcohol) multiple cd tx, began age 13, first treatment at age 14; last treatment at [facility] 2015,2016*Sober since 03/16/16 PHQ-2 Answer Date Recorded PHQ-2 TOTAL SCORE 0 08/31/2023 Social Connections Answer Date Recorded Frequency of Communication with Friends and Fami ly 0 08/31/2023 Financial Resource Strain Answer Date R ecorded Difficulty of Paying Living Expenses 3 08/31/2023 Difficulty of Paying Living Expenses Not on file 08/31/2023 Food Insecurity Answer Date Recorded Worried About Running Out of Food in the Last Ye ar 1 08/31/2023 Transportation Needs Answer Date Record ed Lack of Transportation (Medical) 1 08/31/2023 Housing Stability Answer Date Recorded Unable to Pay for Housing in the Last Year 1 08/31/2023 Sex and Gender Information Value Date Recorded Sex Assigned at Not on file Gender Identity Not on file Sexual Orientation Not on file Obstetrics History Last Filed Vital Signs Vital Sign Reading Time Taken Comments Blood Pressure 122/66 08/31/2023 1:10 PM CDT Pulse 84 08/31/2023 1:10 PM CDT Temperature 36.4 ??C (97.6 ??F) 08/31/2023 1:10 PM CD T Respiratory Rate 18 08/10/2021 12:28 PM CDT Oxygen Saturation 94% 08/31/2023 1:10 PM CDT Inhaled Oxygen Concentration - - Weight 108.9 kg (240 lb) 08/31/2023 1:10 PM CDT Height 185.4 cm (6' 1) 08/31/2023 1:10 PM CDT Body Mass Index 31.66 08/31/2023 1:10 PM CDT Plan of Treatment Upcoming Encounters Date Type Department Care Team (Late st Contact Info) Description 12/11/2023 3:30 PM CDT Office Visit [facility] [place] [address] [facility] [address] [place] [phone] Jay Baron MD [address] [facility] [address] [place] [address] Health Maintenance Due Date Last Done Comments Pneumococcal series for age 6-64 (1 of 2 - PCV) 1969 HIV for age 15-65 1978 Hepatitis C screening for ag e 18-79 1981 Lipids for age 45-75 2008 Zoster (shingles) series for age 50+ (1 of 2) 2013 Fecal testing non-DNA (FIT,FOBT,iFOBT) for age 45-75 10/03/2022 10/03/2021 Influenza for age 50-64 01/13/2024 03/06/20, 03/01/2022, 03/24/2021, Additional history exists BMI (ht and wt on same day) for age 18+ 08/30/2024 08/31/2023, 08/03/2021, 07/01/2021, Additional history exists Depression screening for age 12+ 08/30/2024 08/31/2023, 08/03/2021, 06/18/2020, Additional history exists Tetanus booster 12/15/2024 12/15/2014, 10/12, 08/13/2004, Additional history exists Tdap Completed 12/15/2014 COVID-19 vaccine series Completed 06/19/19, 03/20/2022, 04/14/2021, Additional history exists Medical Devices Implanted Type Area Pbx Installer Device Identifier Shelf Expiration Date Model / Serial / Lot [id number] Bone Dbx 5cc [id number] [[id number]] Implanted:Qty: 1 on 10/30/2012 at [facility] Explanted:at [facility] (Quantity not on file) Spine Musculoskeletal Transplant 07/16/2014 [id number]# / [id number] / [id number] 173bone Canclls Crushed 30cc [[id number]] Implanted:Qty: 1 on 10/30/2012 at [facility] Explanted:(Quant ity not on file) Spine Musculoskeletal Transplant 04/24/2016 [id number]# / [id number] / Set Screw 3dx - [id number] Implanted:Qty: 4 on 10/30/2012 by Audi Jain at [facility] N/A: Spine Medtronic Spine/Ortho [id number]# / / Cnnctr Tsrh 3dx Sm - [id number] Implanted:Qty: 4 on 10/30/2012 by Audi Jain at [facility] N/A: Spine Medtronic Spine/Ortho [id number]# / / Screw Thin Crest 6.5x45mm - [id number] Implanted:Qty: 4 on 10/30/2012 by Audi Jain at [facility] N/A: Spine Medtronic Spine/Ortho [id number]# / / Keith 3.5cmx5.5mm Pre-Cut - [id number] Implanted:Qty: 2 on 10/30/2012 by Audi Jain at [facility] Medtronic Spine/Ortho [id number]# / / Perimeter Lg 16mm 8 Deg Add-On - [id number] Implanted:Qty: 1 on 10/30/2012 at [facility] N/A: Spine Medtronic Spine/Ortho [id number]# / / [id number] Bone Matrix 5cc Stimulan Kit Rapid Cure - [id number] Implanted:Qty: 1 on 03/21/2018 by Rashad Pearson MD at [facility] Right: Foot [employer] 12/11/2020 [id number]# / / 11/28-R37 6/377 Screw Foot 5x55mm Fixos Comp Headless - [id number] Implanted:Qty: 1 on 08/20/2018 by Rashad Pearson MD at [facility] Left: Foot [employer] [id number]# / / Description:Load [id number] Screw Foot 7x80mm Fixos Comp Headless Shrt - [id number] Implanted:Qty: 1 on 08/20/2018 by Rashad Pearson MD at [facility] Left: Foot [employer] [id number]# / / Description:Load [id number] Procedures Procedure Name Priority Date/Time Associated Diagnosis Comments OCCULT BLOOD IFOBT STOOL Routine 10/03/2021 2:21 PM CDT Screening for colorectal cancer from Last 3 Months or Most Recently Relevant to Health Maintenance Results * OCCULT BLOOD IFOBT STOOL (10/03/2021 2:21 PM CDT) STOOL BLOOD ,IFOBT Negative Negative 10/07/2021 11:41 AM CDT [facility] Stool STOOL SPECIMEN / Unknown Non-Blood / Unknown 10/03/2021 2:21 PM CDT 10/06/2021 2:21 PM CDT Demetrio Peña MD [facility] [place] [facility] [address] [place] [address], [place] [phone] from Last 3 Months or Most Recently Relevant to Health Maintenance Advance Directives * Full Code (Latest Code Status on File) Date Activated Date Inactivated Comments 08/10/2021 6:54 AM 08/10/2021 3:29 PM Question Answer Comments Code Status Discussion: Reviewed Preferences * Full Code Date Activated Date Inactivated Comments 08/20/2018 9:53 AM 08/20/2018 9:15 PM * Full Code Date Activated Date Inactivated Comments 03/21/2018 1:14 PM 03/24/2018 3:26 PM * Full Code Date Activated Date Inactivated Comments 02/13/2018 12:58 PM 02/15/2018 5:23 PM * Full Code Date Activated Date Inactivated Comments 12/25/2017 9:27 AM 12/25/2017 7:50 PM Care Teams Lead Warehouse Associate Relationship Specialty Start Date End Date Clinic, No Pcp Or . PCP - General 11/07/22
--- OUTSIDE RECORDS SUMMARY | 2023-11-28 08:47 | XMS_ITS | Patient Health Record ---
Author Organization [facility] 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91) Active confirmed Derangem ent of knee (20688975) Problem Fusion of spine, site unspecified (M43.20) Active confirmed Problem Acquired absence of unspecified foot (Z89.439) Active confirmed Amputated foot (049727246) PLAN OF TREATMENT No Information Insurance Providers Payer Name Payer Address Payer Phone Subscriber Number Group Number Insured Name Patient Relationship to Insured Coverage Start Date Coverage End Date [facility] [address] [address] [place] [address] [id number] Gianni Mijares Self - patient is the insured MEDICAL (GENERAL) HISTORY Medical History History ICD Code partial right foot amputation Chronic back pain Surgical History Surgery Date(Month/Year) Fusion of back 2012 partial right foot amputation 2007 Rt knee meniscal repair, arthroscopic Hospitalization History Reason Date(Month/Year) ED for Cellulitis 03/2022
--- OUTSIDE RECORDS SUMMARY | 2023-11-28 08:48 | XMS_ITS | Continuity of Care Document ---
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 Name Role Phone Jabari Leija MD Unavailable Unavailable Allergies, Adverse Reactions, Alerts Substance Reaction Status Criticality No Known Allergies Active No Inform ation Medications Medication Instructions Dosage Effective Dates (start - stop) Status Comments gabapentin 300 mg capsule take 1 capsule by oral route 3 times every day 300 MG - Active Intrathecal Hydromorphone INTRATHEC - Active Intrathecal Fentanyl INTRATHEC - Active Intrathecal Bupivacaine INTRATHEC - Active Procedures Procedure Date Est Pt Eval Telehealth Est Pt Eval Telehealth Unclassified Drugs Unclassified Drugs Unclassified Drugs HOME INFUSION/VISIT, 2 HRS HIT PAIN IMP PUMP JUAN HIT PAIN IMP PUMP JUAN Pump Programming W/Refill Non 2023 HIT PAIN IMP PUMP JUAN HIT PAIN IMP PUMP JUAN Pump Programming W/Refill Non 2023 HIT PAIN IMP PUMP JUAN HIT PAIN IMP PUMP JUAN Pump Programming W/Refill Non 2022 HIT PAIN IMP PUMP JUAN Pump Programming W/Refill Non 2022 HIT PAIN IMP PUMP JUAN HIT PAIN IMP PUMP JUAN Pump Programming W/Refill Non 2022 Unclassified Drugs Unclassified Drugs Unclassified Drugs HIT PAIN IMP PUMP JUAN Pump Programming W/Refill Non 2022 Unclassified Drugs Unclassified Drugs Unclassified Drugs HIT PAIN IMP PUMP JUAN HIT PAIN IMP PUMP JUAN Pump Programming W/Refill Non 2022 Unclassified Drugs Unclassified Drugs Unclassified Drugs HIT PAIN IMP PUMP JUAN Elec Analys Progrm Pump; W/rep HIT PAIN IMP PUMP JUAN Pump Programming W/Refill Non 2022 Unclassified Drugs Unclassified Drugs Unclassified Drugs HIT PAIN IMP PUMP JUAN Pump Programming W/Refill Non 2022 Unclassified Drugs Unclassified Drugs Unclassified Drugs HIT PAIN IMP PUMP JUAN HIT PAIN IMP PUMP JUAN Pump Programming W/Refill Non 2022 Unclassified Drugs Unclassified Drugs Unclassified Drugs HIT PAIN IMP PUMP JUAN HIT PAIN IMP PUMP JUAN Pump Programming W/Refill Non 2021 HIT PAIN IMP PUMP JUAN Elec Analys Progrm Pump; W/rep HIT PAIN IMP PUMP JUAN Pump Programming W/Refill Non 2021 Unclassified Drugs Unclassified Drugs Unclassified Drugs Est Pt Eval 25 Min HIT PAIN IMP PUMP JUAN No Show Visit Fee Pump Programming W/Refill Non 2021 Unclassified Drugs Unclassified Drugs Unclassified Drugs HIT PAIN IMP PUMP JUAN Est Pt Eval 25 Min Pump Programming W/Refill Non 2021 Unclassified Drugs Unclassified Drugs Unclassified Drugs HIT PAIN IMP PUMP JUAN Pump Programming W/Refill Non 2021 HIT PAIN IMP PUMP JUAN Pump Programming W/Refill Non 2021 HIT PAIN IMP PUMP JUAN Pump Programming W/Refill Non 2021 HIT PAIN IMP PUMP JUAN Electronic Anal. W/O Reprogram HIT PAIN IMP PUMP JUAN Pump Programming W/Refill Non 2021 Compounded drug, not otherwise classifie d HIT PAIN IMP PUMP JUAN Pump Programming W/Refill Non 2021 HIT PAIN IMP PUMP JUAN Pump Programming W/Refill Non 2020 Unclassified Drugs Unclassified Drugs Unclassified Drugs HIT PAIN IMP PUMP JUAN HIT PAIN IMP PUMP JUAN Pump Programming W/Refill Non 2020 HIT PAIN IMP PUMP JUAN Pump Programming W/Refill Non 2020 Unclassified Drugs Unclassified Drugs Unclassified Drugs HIT PAIN IMP PUMP JUAN HIT PAIN IMP PUMP JUAN Pump Programming W/Refill Non 2020 Catheter Dye Study Fluoroscopic guidance-Cath Dye Study Nov Catheter Dye Study Fluoroscopic guidance-Cath Dye Study Nov No Show Visit Fee No Show Visit Fee HIT PAIN IMP PUMP JUAN Pump Programming W/Refill Non 2020 Unclassified Drugs Unclassified Drugs Unclassified Drugs HIT PAIN IMP PUMP JUAN Pump Programming W/Refill Non 2020 HIT PAIN IMP PUMP JUAN No Show Visit Fee No Charge HIT PAIN IMP PUMP JUAN Pump Programming W/Refill Non 2020 HIT PAIN IMP PUMP JUAN Est Pt Eval 25 Min Telehealth Pump Programming W/Refill Non 2020 HIT PAIN IMP PUMP JUAN HIT PAIN IMP PUMP JUAN Pump Programming W/Refill Non 2019 HIT PAIN IMP PUMP JUAN Pump Programming W/Refill Non 2019 HIT PAIN IMP PUMP JUAN Psychiatric Diagnostic Evaluation HIT PAIN IMP PUMP JUAN Pump Programming W/Refill Non 2019 HIT PAIN IMP PUMP JUAN No Show Visit Fee HIT PAIN IMP PUMP JUAN Pump Programming W/Refill Non 2019 Est Pt Eval 15 Min Telehealth HIT PAIN IMP PUMP JUAN Est Pt Eval 25 Min HIT PAIN IMP PUMP JUAN Pump Programming W/Refill Non 2019 HIT PAIN IMP PUMP JUAN Pump Programming W/Refill Non 2019 HIT PAIN IMP PUMP JUAN HIT PAIN IMP PUMP JUAN HIT PAIN IMP PUMP JUAN Pump Programming W/Refill Non 2019 Pump Programming W/Refill Non 2019 No Show Visit Fee HIT PAIN IMP PUMP JUAN Pump Programming W/Refill Non 2018 HIT PAIN IMP PUMP JUAN Elec Analys Progrm Pump; W/rep 19 HIT PAIN IMP PUMP JUAN Est Pt Eval 25 Min Pump Programming W/Refill Non 2018 Est Pt Eval 25 Min Elec Analys Progrm Pump; W/rep 19 Est Pt Eval 25 Min Elec Analys Progrm Pump; W/rep 19 Est Pt Eval 25 Min Elec Analys Progrm Pump; W/rep 19 Implant/Revise Spine Cath Implant/Replace Prog Pump Change Control, No Medical Records Avail able Catheter, Intraspinal Programmable Infusion pump, Change Control for Diagnosis(s) 019 Change Control for Modifier(s) 19 Change Control Implants Implant/Revision Spine Cath Implant/Replace Prog Pump Moderate Sedation (older Than 5 Years) A Change Control for Procedure(s): 2018 Est Pt Eval 15 Min Global Postop Visit Inject,Spine W/cath,lumb/sacrl,Epi/subar W/img Edward Moderate Sedation (older Than 5 Years) J Inject,Spine W/cath,lumb/sacrl,Epi/subar W/img Edward Change Control for Procedure(s): 2018 Est Pt Eval 15 Min Est Pt Eval 15 Min Est Pt Eval 15 Min Global Postop Visit Implant SCS Epidi Lead Implant SCS Epidi Lead Implant SCS Epi Lead Implant SCS Epi Lead Stimulator Electrodes Each No Charge Est Pt Eval 25 Min Psychotherapy, 30 minutes with patient M Inj Anes Epidur; Lumb/sac 1 Le 19 Inj Anes Epidur; Lumb/sac-ea A 19 Methylprednisolone Acetate-40 9 Inj Anes Epidur; Lumb/sac 1 Le 19 Trans Epid Lumbosac each addl 9 Est Pt Eval 15 Min Psychotherapy, 30 minutes with patient A Therapeutic Exercise PT Eval - Low Complexity Psychiatric Diagnostic Evaluation New Pt Eval 60 Min Toxicology Test Group C Psych Dx Interview Exam Est Pt Eval 25 Min Offic/outpt E&m Estab Mod Offic/outpt E&m Estab Mod Offic/outpt E&m Estab Low Offic/outpt E&m Estab Min Offic/outpt E&m Estab Mod Psych Dx Interview Exam Offic/outpt E&m Estab Minor 10 10 Est Pt Eval 25 Min Offic/outpt E&m Estab Minor 10 10 Fluoroscopic Guidance For Needle Placeme nt - Spine Destrct; Paravert Facet Jt Lum 09 Destrct; Nerv Lumbar Ea Add Le 09 Fluoroscopic Guidance For Needle Placeme nt - Spine Inj Anes Facet Jt; Lumb/sac-1l 09 Inj Anes Facet Jt; Lumb/sac-ea 09 Offic/outpt E&m Estab Minor 09 Fluoroscopic Guidance For Needle Placeme nt - Spine Inj Anes Facet Jt; Lumb/sac-1l 09 Inj Anes Facet Jt; Lumb/sac-ea 09 Offic Cons New/estab Mod-hi 60 09 Advance Directives Directive Yes / No Effective Date File Name No Information Encounters Encounter Description Practice Location Reason(s) For Visit Diagnoses Date Provider Providers Copied on Encounter ELLIOTT Navarro, [address], [place], [place], [address], [place] tel:[phone] J LUIS Navarro No Information 4 Liss Barboza. [address], [place], [place], [address], [place]. tel:[phone] Est Pt Eval Telehealth JOSE ANTONIO Navarro, [address], [place], [place], [address], [place] tel:[phone] [facility] lower back pain (chief complaint) Body mass index (BMI) 32.0-32.9, adultOther spondylosis with radiculopathy , lumbar regionPostlam inectomy syndrome, not elsewhere classified 4 Moualee Sharon. [address], [place], [address], [place]. tel:[phone] Referring Provider: Ricco Hill MD K, [facility] [address] [facility], [place], [address]. tel:[phone] Est Pt Eval Telehealth [facility], [address], [place], [place], [address], [place] tel:[phone] [facility] lower back pain (chief complaint) Pain in unspecified ankle and joints of unspecified footOther spondylosis with radiculopathy , lumbar regionPostlam inectomy syndrome, not elsewhere classifiedBod y mass index (BMI) 32.0-32.9, adult 4 Moualee Sharon. [address], [address], [place], [address], [place]. tel:[phone] Referring Provider: Ricco Pedraza, [address] [place] [address] [facility], [place], [address]. tel:[phone] HOME INFUSION/VIS IT, 2 HRS [facility], [address] [facility] [address], [place], [address], [place] tel:[phone] Home Visit lower back pain (chief complaint) Postlaminecto my syndrome, not elsewhere classified Koffi-0 4 RN RN. [address] [facility] [address], [place], [address], [place]. tel:[phone] Referring Provider: Ricco Pedraza, [address] [place], [place] [address], [place], [address]. tel:[phone] [facility], [address] [facility] [place], [place], [address], [place] tel:[phone] Home Visit No Information 4 RN RN. [address] , [facility] [address], [place], [address], [place]. tel:[phone] Referring Provider: Ricco Pedraza, [address] [place] [address] [facility], [place], [address]. tel:[phone] [facility], [address] [facility] [place], [place], [address], [place] tel:[phone] Home Visit No Information 4 RN RN. [address] , [facility] [address], [place], [address], [place]. tel:[phone] Referring Provider: Ricco Pedraza, [address] [place] [address] [facility], [place], [address]. tel:[phone] [facility], [address] [facility] [place], [place], [address], [place] tel:[phone] Home Visit lower back pain (chief complaint) Postlaminecto my syndrome, not elsewhere classifiedChr onic pain syndromePostl aminectomy syndrome, not elsewhere classified 4 RN RN. [address] [facility], [facility] [address], [place], [address], [place]. [phone] Referring Provider: Ricco Pedraza, [address] [place] [address] [facility], [place], [address]. tel:[phone] ELLIOTT Navarro, [address] [facility] [address], [place], [address], [place] tel:[phone] Home Visit No Information 4 RN RN. [address], [id number], [place]. tel:[phone] Referring Provider: Ricco Pedraza, [address] [place] [address] [facility], [place], [address]. tel:[phone] [facility], [address] [facility] [address], [place], [address], [place] tel:[phone] Home Visit No Information 4 RN RN. [address] [facility] [address], [place], [address], [place]. tel:[phone] Referring Provider: Ricco Pedraza, [address] [place] [address] [facility], [place], [address]. tel:[phone] JOSE ANTONIO [facility], [address] [facility] [address], [place], [address], [place] tel:[phone] Home Visit Pump Visit (chief complaint) Postlaminecto my syndrome, not elsewhere classifiedOth er chronic painPostlamin ectomy syndrome, not elsewhere classified 4 RN RN. [address] , [address], [place], [address], [place]. tel:[phone] Referring Provider: Ricco Pedraza, [address] [place] [address] [facility], [place], [address]. tel:[phone] [facility], [address] [facility] [address], [place], [address], [place] tel:[phone] Home Visit No Information 4 RN RN. [address] , [address], [place], [address], [place]. tel:[phone] Referring Provider: Ricco Pedraza, [address] [place] [address] [facility], [place], [address]. tel:[phone] [facility], [address] [facility] [address], [place], [address], [place] tel:[phone] Home Visit No Information 4 RN RN. [address] , [facility] [address], [place], [address], [place]. tel:[phone] Referring Provider: Ricco Pedraza, [address] [place] [address] [facility], [place], [address]. tel:[phone] [facility], [address] [facility] [address], [place], [address], [place] tel:[phone] Home Visit Pump Visit (chief complaint) Postlaminecto my syndrome, not elsewhere classifiedChr onic pain syndromePostl aminectomy syndrome, not elsewhere classified 3 RN RN. [address] , [facility] [address], [place], [address], [place]. tel:[phone] Referring Provider: Ricco Pedraza, [address] [place] [address] [facility], [place], [address]. tel:[phone] [facility], [address], [place], [place], [address], [place] tel:[phone] Home Visit No Information 3 RN RN. [address], [place], [place], [address], [place]. tel:[phone] Referring Provider: Ricco Pedraza, [facility] [address] [facility], [place], [address]. tel:[phone] [facility], [address], [place], [address], [place] tel:[phone] Home Visit Pump Visit (chief complaint) Postlaminecto my syndrome, not elsewhere classifiedPos tlaminectomy syndrome, not elsewhere classified 3 RN RN. [address], [place], [address], [place]. tel:[phone] Referring Provider: Ricco Pedraza, [facility]0 [facility] [address] [facility], [place], [address]. tel:[phone] [facility], [address], [place], [address], [place] tel:[phone] Home Visit No Information 3 RN RN. [address], [place], [address], [place]. tel:[phone] Referring Provider: Ricco Pedraza, [facility]0 [facility] [address] [facility], [place], [address]. tel:[phone] [facility], [address], [place], [address], [place] tel:[phone] Home Visit No Information 3 RN RN. [address], [place] , [place], [address], [place]. tel:[phone] Referring Provider: Ricco Pedraza, [address] [place] [address] [facility], [place], [address]. tel:[phone] [facility], [address] [facility] [address], [place], [address], [place] tel:[phone] Home Visit Pump Visit (chief complaint) Chronic pain syndromePostl aminectomy syndrome, not elsewhere classifiedChr onic pain syndrome Sep- 3 RN RN. [address], [facility] [address], [place], [address], [place]. tel:[phone] Referring Provider: Ricco Pedraza, [address] [place] [address] [facility], [place], [address]. tel:[phone] [facility], [address] [facility], [address], [place] tel:[phone] Home Visit No Information Jan- 3 RN RN. [address] [facility] [address], [place], [address], [place]. tel:[phone] Referring Provider: Ricco Pedraza, [address] [place] [address] [facility], [place], [address]. tel:[phone] [facility], [address] [facility] [address], [place], [address], [place] tel:[phone] Home Visit Pump Visit (chief complaint) Postlaminecto my syndrome, not elsewhere classifiedChr onic pain syndromePostl aminectomy syndrome, not elsewhere classified 3 RN RN. [address], [facility] [address], [place], [address], [place]. tel:[phone] Referring Provider: Ricco Pedraza, [address] [place] [address] [facility], [place], [address]. tel:[phone] [facility], [address] [facility] [address], [place], [place], [address], [place] tel:[phone] Home Visit No Information 3 RN RN. [address] , [address], [place], [address], [place]. tel:[phone] Referring Provider: Ricco Pedraza, [address] [place] [address] [address] [facility], [place], [address]. tel:[phone] [facility], [address] [facility] [address], [place], [address], [place] tel:[phone] Home Visit No Information 3 RN RN. [address] , [address], [place], [address], [place]. tel:[phone] Referring Provider: Ricco Pedraza, [address] [place] [address] [address] [facility], [place], [address]. tel:[phone] [facility], [address] [facility] [address], [place], [address], [place] tel:[phone] Home Visit back pain (chief complaint) Postlaminecto my syndrome, not elsewhere classifiedChr onic pain syndromePostl aminectomy syndrome, not elsewhere classified 3 RN RN. [address] , [address], [place], [address], [place]. tel:[phone] Referring Provider: Ricco Pedraza, [facility]0 [facility] [address] [facility], [place], [address]. tel:[phone] [facility], [address] [facility] [address], [place], [address], [place] tel:[phone] Home Visit No Information 3 RN RN. [address] , [address], [place], [place], [address], [place]. tel:[phone] Referring Provider: Ricco Pedraza, [address] [place] [address] [place] [address] [facility], [place], [address]. tel:[phone] [facility], [address] [facility] [address], [place], [address], [place] tel:[phone] Home Visit back pain (chief complaint) Postlaminecto my syndrome, not elsewhere classifiedChr onic pain syndromePostl aminectomy syndrome, not elsewhere classified 3 RN RN. [address] , [address], [place], [address], [place]. tel:[phone] Referring Provider: Ricco Pedraza, [address] [place] [address] [place] [address] [facility], [place], [address]. tel:[phone] [facility], [address], [place], [address], [place] tel:[phone] Home Visit No Information 3 RN RN. [address] , [address], [place], [address], [place]. tel:[phone] Referring Provider: Ricco Pedraza, [address] [place] [address] [place] [address] [facility], [place], [address]. tel:[phone] [facility], [address], [place], [address], [place] tel:[phone] Home Visit Postlaminecto my syndrome, not elsewhere classifiedChr onic pain syndromePostl aminectomy syndrome, not elsewhere classified 3 RN RN. [address], [place], [address], [place]. tel:[phone] Referring Provider: Ricco Pedraza, [address] [place] [address] [address] [facility], [place], [address]. tel:[phone] [facility], [address] [facility] [address], [place], [address], [place] tel:[phone] Home Visit No Information 3 RN RN. [address], [place], [address], [place]. tel:[phone] Referring Provider: Ricco Pedraza, [address] [place] [address] [place], [place] [address], [place], [address]. tel:[phone] [facility], [address] [facility] [address], [place], [address], [place] tel:[phone] Home Visit Pump Visit (chief complaint) Postlaminecto my syndrome, not elsewhere classifiedChr onic pain syndromePostl aminectomy syndrome, not elsewhere classified Mar-2 3 RN RN. [address] , [address], [place], [address], [place]. tel:[phone] Referring Provider: Ricco Pedraza, [address] [place] [address] [place], [place] [address], [place], [address]. tel:[phone] [facility], [address], [place], [place], [address], [place] tel:[phone] Home Visit No Information 0 3 RN RN. [address] , [address], [place], [address], [place]. tel:[phone] Referring Provider: Ricco Pedraza, [address] [place] [address] [place], [place] [address], [place], [address]. tel:[phone] [facility], [address] [facility] [address], [place], [address], [place] tel:[phone] Home Visit No Information 3 RN RN. [address], [place], [address], [place]. tel:[phone] Referring Provider: Ricco Pedraza, [address] [place] [address] [facility], [place], [address]. [phone] [facility], [address] [facility] [address], [place], [address], [place] tel:[phone] Home Visit back pain (chief complaint) left leg pain (chief complaint) Postlaminecto my syndrome, not elsewhere classifiedPos tlaminectomy syndrome, not elsewhere classified 3 RN RN. [address] , [facility] [address], [place], [address], [place]. tel:[phone] Referring Provider: Ricco Pedraza, [address] [place] [address] [facility], [place], [address]. [phone] [facility], [address] [facility] [address], [place], [address], [place] tel:[phone] Home Visit No Information 3 RN RN. [address] , [facility] [address], [place], [address], [place]. tel:[phone] Referring Provider: Ricco Pedraza, [address] [place] [address] [facility], [place], [address]. [phone] [facility], [address] [facility] [address], [place], [address], [place] tel:[phone] Home Visit No Information 2 RN RN. [address] , [facility] [address], [place], [address], [place]. tel:[phone] Referring Provider: Ricco Pedraza, [address] [place] [address] [address] [facility], [place], [address]. tel:[phone] [facility], [address], [place], [address], [place] tel:[phone] Home Visit back pain (chief complaint) joint pain (chief complaint) Postlaminecto my syndrome, not elsewhere classifiedPos tlaminectomy syndrome, not elsewhere classified 2 RN RN. [address], [place], [address], [place]. tel:[phone] Referring Provider: Ricco Pedraza, [address] [place] [address] [address] [facility], [place], [address]. tel:[phone] [facility], [address] [facility] [address], [place], [address], [place] tel:[phone] Home Visit No Information 2 RN RN. [address], [place], [address], [place]. tel:[phone] Referring Provider: Ricco Pedraza, [address] [place] [address] [place], [place] [address], [place], [address]. tel:[phone] [facility], [address] [facility] [address], [place], [address], [place] tel:[phone] Home Visit back pain (chief complaint) Postlaminecto my syndrome, not elsewhere classifiedPos tlaminectomy syndrome, not elsewhere classified 2 RN RN. [address], [place], [address], [place]. tel:[phone] Referring Provider: Ricco Pedraza, [address] [place] [address] [address] [facility], [place], [address]. tel:[phone] [facility], [address] [facility] [address], [place], [address], [place] tel:[phone] Home Visit No Information 2 RN RN. [address]103 [facility], [facility] [address], [place], [address], [place]. tel:[phone] Referring Provider: Ricco Pedraza, [address] [place] [address] [address] [facility], [place], [address]. tel:[phone] Ramon [facility], [address]103 [facility] [address], [place], [address], [place] tel:[phone] Home Visit Postlaminecto my syndrome, not elsewhere classifiedPai n in right footPain disorder with related psychological factorsPostla minectomy syndrome, not elsewhere classified Jan- 2 RN RN. [address], [id number], [place]. tel:[phone] Referring Provider: Ricco Pedraza, [facility]0 [facility] [address] [facility], [place], [address]. tel:[phone] Est Pt Eval 25 Min Ramon [facility], [address]103 [facility] [address], [place], [address], [place] tel:[phone] [facility] Body aches (chief complaint) Other spondylosis with radiculopathy , lumbar regionPain in unspecified ankle and joints of unspecified footPostlamin ectomy syndrome, not elsewhere classifiedBod y mass index (BMI) 32.0-32.9, adult Sep- 2 Ketola Jeanne. 2103 [facility], [address], [id number], [place]. tel:[phone] Referring Provider: Ricco Pedraza, [facility]0 [facility] [address] [facility], [place], [address]. tel:[phone] Ramon [facility], [address], [place], [address], [place] tel:[phone] Home Visit No Information 2 ASHLEY RAMIREZ. [address], [address], [place], [address], [place]. tel:[phone] Referring Provider: Ricco Pedraza, [address] [place] [address] [address] [facility], [place], [address]. tel:[phone] [facility], [address], [place], [address], [place] tel:[phone] [facility] No Information 2 Anaid Whitney. [address] , [address], [place], [address], [place]. tel:[phone] Referring Provider: Ricco Pedraza, [facility]0 [address] [facility], [place], [address]. tel:[phone] [facility], [address], [place], [address], [place] tel:[phone] Home Visit back pain (chief complaint) Postlaminecto my syndrome, not elsewhere classifiedPos tlaminectomy syndrome, not elsewhere classified 2 ASHLEY RAMIREZ. [address] , [address], [place], [address], [place]. tel:[phone] Referring Provider: Ricco Pedraza, [facility]0 [facility] [address] [facility], [place], [address]. tel:[phone] [facility], [address], [place], [address], [place] tel:[phone] Home Visit No Information 2 ASHLEY RAMIREZ. [address] , [address], [place], [address], [place]. tel:[phone] Referring Provider: Ricco Pedraza, [facility]0 [address] [facility], [place], [address]. tel:[phone] Est Pt Eval 25 Min Ramon, [facility], [address], [place], [place], [address], [place] tel:[phone] [facility] back pain (chief complaint) Body mass index (BMI) 31.0-31.9, adultOther spondylosis with radiculopathy , lumbar regionPain in unspecified ankle and joints of unspecified footPostlamin ectomy syndrome, not elsewhere classified 2 She Chelo. [address] , [address], [place], [address], [place]. tel:[phone] Referring Provider: Ricco Pedraza, [facility]0 [address] [facility], [place], [address]. tel:[phone] Ramon [facility], [address], [place], [place], [address], [place] tel:[phone] Home Visit back pain (chief complaint) Postlaminecto my syndrome, not elsewhere classifiedChr onic pain syndromePostl aminectomy syndrome, not elsewhere classified 2 ASHLEY RN. [address] , [address], [place], [place], [address], [place]. tel:[phone] Referring Provider: Ricco Pedraza, [facility]0 [facility] [address] [facility], [place], [address]. tel:[phone] Ramon [facility], [address] [facility], [place], [place], [address], [place] tel:[phone] Home Visit No Information 2 RN RN. [address] , [address], [place], [place], [address], [place]. tel:[phone] Referring Provider: Ricco Pedraza, [address] [place] [address] [address] [facility], [place], [address]. tel:[phone] ELLIOTT Navarro, [address] [facility] [address], [place], [address], [place] tel:[phone] Home Visit back pain (chief complaint) Postlaminecto my syndrome, not elsewhere classifiedChr onic pain syndromePostl aminectomy syndrome, not elsewhere classified 2 RN RN. [address] , [address], [place], [address], [place]. tel:[phone] Referring Provider: Ricco Pedraza, [address] [place] [address] [address] [facility], [place], [address]. tel:[phone] ELLIOTT Navarro, [address] [facility] [address], [place], [address], [place] tel:[phone] Home Visit No Information 2 RN RN. [address] , [address], [place], [address], [place]. tel:[phone] Referring Provider: Ricco Pedraza, [address] [place] [address] [facility], [place], [address]. tel:[phone] JOSE ANTONIO [facility], [address] [facility] [address], [place], [address], [place] tel:[phone] Home Visit back pain (chief complaint) Postlaminecto my syndrome, not elsewhere classifiedChr onic pain syndromePostl aminectomy syndrome, not elsewhere classified 2 RN RN. [address] , [address], [place], [address], [place]. tel:[phone] Referring Provider: Ricco Pedraza, [address] [place] [address] [address] [facility], [place], [address]. tel:[phone] [facility], [address] [facility] [address], [place], [address], [place] tel:[phone] Home Visit No Information 2 RN RN. [address] , [address], [place], [address], [place]. tel:[phone] Referring Provider: Ricco Pedraza, [address] [place] [address] [facility], [place], [address]. tel:[phone] [facility], [address] [facility] [address], [place], [address], [place] tel:[phone] Home Visit back pain (chief complaint) bilateral leg pain (chief complaint) Postlaminecto my syndrome, not elsewhere classifiedChr onic pain syndromePostl aminectomy syndrome, not elsewhere classified Apr 2 RN RN. [address] , [facility] [address], [place], [address], [place]. tel:[phone] Referring Provider: Ricco Pedraza, [address] [place] [address] [facility], [place], [address]. [phone] [facility], [address] [facility] [address], [place], [address], [place] tel:[phone] Home Visit No Information 2 RN RN. [address] , [facility] [address], [place], [address], [place]. tel:[phone] Referring Provider: Ricco Pedraza, [address] [place] [address] [facility], [place], [address]. tel:[phone] [facility], [address] [facility] [address], [place], [address], [place] tel:[phone] Home Visit back pain (chief complaint) left leg pain (chief complaint) Postlaminecto my syndrome, not elsewhere classifiedPos tlaminectomy syndrome, not elsewhere classified 2 RN RN. [address] , [address], [place], [address], [place]. tel:[phone] Referring Provider: Ricco ePdraza, [facility]0 [place] [address] [facility], [place], [address]. tel:[phone] [facility], [address], [place], [address], [place] tel:[phone] Home Visit No Information 2 RN RN. [address] , [address], [place], [address], [place]. tel:[phone] Referring Provider: Ricco Pedraza, [address] [place] [address] [facility], [place], [address]. [phone] [facility], [address], [place], [address], [place] tel:[phone] Home Visit back pain (chief complaint) Postlaminecto my syndrome, not elsewhere classifiedChr onic pain syndromePostl aminectomy syndrome, not elsewhere classified 2 RN RN. [address] , [address], [place], [address], [place]. tel:[phone] Referring Provider: Ricco Pedraza, [address] [place] [address] [address] [facility], [place], [address]. tel:[phone] [facility], [address] [facility] [address], [place], [address], [place] tel:[phone] Home Visit No Information 2 RN RN. [address] , [address], [place], [address], [place]. tel:[phone] Referring Provider: Ricco Pedraza, [address] [place] [address] [address] [facility], [place], [address]. tel:[phone] ELLIOTT Navarro, [address] [facility] [address], [place], [address], [place] tel:[phone] Home Visit back pain (chief complaint) left leg pain (chief complaint) Postlaminecto my syndrome, not elsewhere classifiedPos tlaminectomy syndrome, not elsewhere classified 2 RN RN. [address] , [address], [place], [address], [place]. tel:[phone] Referring Provider: Ricco Pedraza, [address] [place] [address] [address] [facility], [place], [address]. tel:[phone] ELLIOTT Navarro, [address], [address], [place] tel:[phone] Home Visit No Information 2 RN RN. [address] , [address], [place], [address], [place]. tel:[phone] Referring Provider: Ricco Pedraza, [address] [place] [address] [facility], [place], [address]. tel:[phone] ELLIOTT Navarro, [address] [facility] [address], [place], [address], [place] tel:[phone] Home Visit back pain (chief complaint) Ankle Pain (chief complaint) Chronic pain syndromePostl aminectomy syndrome, not elsewhere classifiedChr onic pain syndrome 1 RN RN. [address] , [address], [place], [address], [place]. tel:[phone] Referring Provider: Ricco Pedraza, [address] [place] [address] [facility], [place], [address]. tel:[phone] [facility], [address], [place], [address], [place] tel:[phone] Home Visit No Information 1 RN RN. [address], [address], [place], [address], [place]. tel:[phone] Referring Provider: Ricco Pedraza, [address] [place] [address] [address] [facility], [place], [address]. tel:[phone] [facility], [address], [place], [address], [place] tel:[phone] Home Visit No Information 1 RN RN. [address] , [address], [place], [address], [place]. tel:[phone] Referring Provider: Ricco Pedraza, [address] [place] [address] [facility], [place], [address]. tel:[phone] [facility], [address] [facility] [address], [place], [address], [place] tel:[phone] Home Visit back pain (chief complaint) Postlaminecto my syndrome, not elsewhere classifiedChr onic pain syndromePostl aminectomy syndrome, not elsewhere classified 1 RN RN. [address] , [address], [place], [address], [place]. tel:[phone] Referring Provider: Ricco Pedraza, [address] [place] [address] [facility], [place], [address]. tel:[phone] [facility], [address], [place], [address], tel:[phone] Home Visit No Information 1 RN RN. [address] , [address], [place], [address], [place]. tel:[phone] Referring Provider: Ricco Pedraza, [address] [place] [address] [facility], [place], [address]. tel:[phone] [facility], [address] [facility] [address], [place], [address], [place] tel:[phone] Home Visit Postlaminecto my syndrome, not elsewhere classifiedChr onic pain syndromePostl aminectomy syndrome, not elsewhere classified Sep-0 1 RN RN. [address] , [address], [place], [address], [place]. tel:[phone] Referring Provider: Ricco Pedraza, [address] [place], [place] [address], [place], [address]. tel:[phone] [facility], [address] [facility] [address], [place], [address], [place] tel:[phone] Home Visit No Information 1 RN RN. [address] , [facility] [address], [place], [address], [place]. tel:[phone] Referring Provider: Ricco Pedraza, [address] [place], [place] [address], [place], [address]. [phone] [facility], [address] [facility] [address], [place], [address], [place] tel:[phone] Home Visit No Information 1 RN RN. [address] , [facility] [address], [place], [address], [place]. tel:[phone] Referring Provider: Ricco Pedraza, [address] [place] [address] [place], [place] [address], [place], [address]. tel:[phone] [facility], [address], [place], [place], [address], [place] tel:[phone] Home Visit Other intervertebra l disc displacement, lumbar regionPostlam inectomy syndrome, not elsewhere classifiedPos tlaminectomy syndrome, not elsewhere classified 1 RN RN. [address]103 [facility], [address], [place], [place], [address], [place]. tel:[phone] Referring Provider: Ricco Pedraza, [address] [facility] [address] [facility], [place], [address]. tel:[phone] [facility], [address] [facility], [address], [place], [address], [place] tel:[phone] [facility] back pain (chief complaint) Postlaminecto my syndrome, not elsewhere classifiedOth er spondylosis with radiculopathy , lumbar regionOther intervertebra l disc degeneration, lumbosacral regionOpioid dependence, uncomplicated Postlaminecto my syndrome, not elsewhere classifiedOth er spondylosis with radiculopathy , lumbar regionOther intervertebra l disc degeneration, lumbosacral regionOpioid dependence, uncomplicated 1 [facility]. [address] [facility] [address], [place], [place], [address], [place]. tel:[phone] Referring Provider: Bulmaro Unger, [address] [facility] [address], [place], [address]. tel:[phone] [facility], [facility], [address] [facility] [address], [place], [place], [address], [place] tel:[phone] [facility] [place] No Information 1 Vernon Chamberlain. [address] [facility] [address], [place], [address], [place]. tel:[phone] Referring Provider: Bulmaro Unger, [address] [facility] [address], [place], [address]. tel:[phone] [facility] [place], [address], [address], [place], [address], [place] tel:[phone] [facility] No Information 1 Liss Chacko. [address], [place], [place], [address], [place]. [phone] Referring Provider: Ricco Pedraza, [facility] [address] [facility], [place], [address]. tel:[phone] [facility], [address], [place], [place], [address], [place] tel:[phone] [facility] No Information 1 Liss Chacko. [address], [place], [place], [address], [place]. [phone] Referring Provider: Ricco Pedraza, [facility]0 [facility] [address] [facility], [place], [address]. [phone] [facility], [address], [place], [place], [address], [place] tel:[phone] Home Visit No Information 1 RN ASHLEY. [address] , [address], [place], [address], [place]. tel:[phone] Referring Provider: Ricco Pedraza, [facility]0 [facility] [address] [facility], [place], [address]. tel:[phone] [facility], [address], [place], [place], [address], [place] tel:[phone] Home Visit Postlaminecto my syndrome, not elsewhere classifiedPos tlaminectomy syndrome, not elsewhere classified 1 RN ASHLEY. [address], [address], [place], [address], [place]. tel:[phone] Referring Provider: Ricco Pedraza, [facility]0 [facility] [address] [facility], [place], [address]. tel:[phone] [facility], [address], [place], [place], [address], [place] tel:[phone] Home Visit No Information 1 RN RN. [address], [address], [place], [place], [address], [place]. tel:[phone] Referring Provider: Ricco Pedraza, [address] [place], [place] [address] Suite [facility], [place], [address]. tel:[phone] [facility], [address] [facility], [place], [place], [address], [place] tel:[phone] Home Visit Other intervertebra l disc degeneration, lumbar regionOther intervertebra l disc degeneration, lumbar region 0 1 RN RN. [address], [address], [place], [place], [address], [place]. tel:[phone] Referring Provider: Ricco Pedraza, [facility]0 [facility] [address] [facility], [place], [address]. tel:[phone] [facility], [address], [place], [place], [address], [place] tel:[phone] Home Visit No Information 1 RN RN. [address], [address], [place], [place], [address], [place]. tel:[phone] Referring Provider: Ricco Pedraza, [address] [place], [place] [address] [address] [facility], [place], [address]. tel:[phone] [facility], [address], [place], [place], [address], [place] tel:[phone] [facility] No Information 1 Liss Barboza. [address], [address], [place]. tel:[phone] Referring Provider: Ricco Pedraza, [address] [place] [address] [facility], [place], [address]. tel:[phone] [facility], [address] [facility] [address], [place], [address], [place] tel:[phone] [facility] back pain (chief complaint) Low back painPain in left footPain in right footPain in leg 1 Liss Barboza. [address], [address], [place]. tel:[phone] Referring Provider: Ricco Pedraza, [address] [place] [address] [facility], [place], [address]. tel:[phone] [facility], [address], [address], [place] tel:[phone] Home Visit No Information 1 ASHLEY RAMIREZ. [address], [address], [place]. tel:[phone] Referring Provider: Ricco Pedraza, [address] [place] [address] [facility], [place], [address]. tel:[phone] [facility], [address], [address], [place] tel:[phone] Home Visit back pain (chief complaint) Postlaminecto my syndrome, not elsewhere classifiedPos tlaminectomy syndrome, not elsewhere classified Jul-2 1 RN ASHLEY. [address] [place], [address], [place]. tel:[phone] Referring Provider: Ricco Pedraza, [address] [place] [address] [address] [facility], [place], [address]. [phone] [facility], [address] [facility] [address], [place], [address], [place] tel:[phone] Home Visit No Information 1 RN RN. [address] [facility], [address], [place], [address], [place]. tel:[phone] Referring Provider: Ricco Pedraza, [address] [place] [address] [facility], [place], [address]. tel:[phone] Est Pt Eval 25 Min [facility] JOSE ANTONIO [facility], [address] [facility] [address], [place], [address], [place] tel:[phone] Home Visit Postlaminecto my syndrome, not elsewhere classifiedOth er intervertebra l disc degeneration, lumbosacral regionPostlam inectomy syndrome, not elsewhere classified 1 RN RN. [address] [facility], [address], [place], [place], [address], [place]. tel:[phone] Referring Provider: Ricco Pedraza, [address] [place] [address] [facility], [place], [address]. [phone] [facility], [address] [facility] [address], [place], [address], [place] tel:[phone] Home Visit No Information 1 RN RN. [address] [facility], [facility] [address], [place], [address], [place]. tel:[phone] Referring Provider: Ricco Pedraza, [address] [place] [address] [facility], [place], [address]. [phone] [facility], [address] [facility] [address], [place], [place], [address], [place] tel:[phone] Home Visit No Information 1 RN RN. [address] , [address], [place], [address], [place]. tel:[phone] Referring Provider: Ricco Pedraza, [address] [place] [address] [address] [facility], [place], [address]. tel:[phone] [facility], [address] [facility] 220, [place], [place], [address], [place] tel:[phone] Home Visit Chronic pain syndromePostl aminectomy syndrome, not elsewhere classifiedPos tlaminectomy syndrome, not elsewhere classified 0 RN RN. [address] [facility], [address], [place], [address], [place]. tel:[phone] Referring Provider: Ricco Pedraza, [address] [place] [address] [place], [place] [address], [place], [address]. tel:[phone] [facility], [address] [facility] [address], [place], [address], [place] tel:[phone] Home Visit No Information 0 RN RN. [address] , [address], [place], [address], [place]. tel:[phone] Referring Provider: Ricco Pedraza, [facility]0 [address] [facility], [place], [address]. [phone] [facility], [address] [facility], [place], [place], [address], [place] tel:[phone] Home Visit Postlaminecto my syndrome, not elsewhere classifiedChr onic pain syndromePain in right ankle and joints of right footPain in left ankle and joints of left footPostlamin ectomy syndrome, not elsewhere classified 0 RN RN. [address] [facility], [facility] [address], [place], [address], [place]. tel:[phone] Referring Provider: Ricco Pedraza, [facility]0 [address] [facility], [place], [address]. tel:[phone] [facility], [facility], [address] [facility] [address], [place], [address], [place] tel:[phone] Home Visit No Information 0 RN RN. [address] [facility] [address], [place], [address], [place]. tel:[phone] Referring Provider: Ricco Pedraza, [address] [place] [address] [facility], [place], [address]. tel:[phone] Psychiatric Diagnostic Evaluation Ramon [facility], [address] [facility] [address], [place], [address], [place] tel:[phone] [facility] Pain disorder with related psychological factorsMajor depressive disorder, recurrent, moderate 0 César Felder. [address] [facility] [address], [place], [address], [place]. tel:[phone] Referring Provider: Ricco Pedraza, [address] [place] [address] [facility], [place], [address]. tel:[phone] Ramon, [facility], [address] [facility] [address], [place], [address], [place] tel:[phone] Home Visit No Information 0 RN RN. [address] [facility] [address], [place], [address], [place]. tel:[phone] Referring Provider: Ricco Pedraza, [address] [facility] [address] [facility] [facility], [place], [address]. tel:[phone] [facility], [address], [place], [place], [address], [place] tel:[phone] Home Visit Chronic pain syndromePostl aminectomy syndrome, not elsewhere classifiedPos tlaminectomy syndrome, not elsewhere classified 0 RN RN. [address], [place], [place], [address], [place]. tel:[phone] Referring Provider: Ricco Pedraza, [facility]0 [facility] [address] [facility], [place], [address]. tel:[phone] [facility], [address], [place], [place], [address], [place] tel:[phone] Home Visit No Information 0 RN RN. [address], [address], [place], [place], [address], [place]. tel:[phone] Referring Provider: Ricco Pedraza, [facility]0 [facility] Suite [facility], [place], [address]. tel:[phone] [facility], [address], [place], [place], [address], [place] tel:[phone] [facility] No Information 0 César Felder. [address], [address], [place], [place], [address], [place]. tel:[phone] Referring Provider: Ricco Pedraza, [facility]0 [facility] [address] [facility], [place], [address]. tel:[phone] [facility], [address], [place], [place], [address], [place] tel:[phone] Home Visit No Information 0 RN RN. [address] , [address], [place], [place], [address], [place]. tel:[phone] Referring Provider: Ricco Pedraza, [address] [place] [address] 301 [facility], [place], [address]. tel:[phone] Ramon [facility], [address], [place], [place], [address], [place] tel:[phone] Home Visit back pain (chief complaint) Other intervertebra l disc degeneration, lumbosacral regionOther intervertebra l disc displacement, lumbar regionOther intervertebra l disc degeneration, lumbosacral region 0 RN RN. [address], [place], [place], [address], [place]. tel:[phone] Referring Provider: Ricco Pedraza, [address] [place] [address] [address] [facility], [place], [address]. tel:[phone] Est Pt Eval 15 Min Telehealth JOSE ANTONIO Navarro, [address] [facility] [address], [place], [place], [address], [place] tel:[phone] [facility] back pain (chief complaint) Pain in left anklePain in right ankleNeuralgi a and neuritis, unspecifiedLo w back pain 0 Jose Buchanan. [address], [place], [address], [place]. tel:[phone] Referring Provider: Ricco Pedraza, [address] [place] [address] [facility], [place], [address]. tel:[phone] ELLIOTT Navarro, [address] [facility], [place], [place], [address], [place] tel:[phone] Home Visit No Information 0 ASHLEY RAMIREZ. [address] [facility], [facility] [address], [place], [address], [place]. tel:[phone] Referring Provider: Ricco Pedraza, [address] [place] [address] [facility], [place], [address]. tel:[phone] Est Pt Eval 25 Min JOSE ANTONIO NavarroC, [address] [facility] [address], [place], [place], [address], [place] tel:[phone] [facility] back pain (chief complaint) Low back painFusion of spine, lumbar regionOther spondylosis, lumbar regionOther intervertebra l disc degeneration, lumbar regionOther intervertebra l disc displacement, lumbar regionPain in left anklePain in right ankle 0 Jose Buchanan. [address] [facility] [address], [place], [address], [place]. tel:[phone] Referring Provider: Ricco Pedraza, [address] [place] [address] [facility], [place], [address]. tel:[phone] JOSE ANTONIO NavarroC, [address] [facility] [address], [place], [address], [place] tel:[phone] Home Visit No Information 0 RN RN. [address] [facility] [address], [place], [address], [place]. tel:[phone] Referring Provider: Ricco Pedraza, [address] [place] [address] [facility], [place], [address]. tel:[phone] [facility], [address] [facility] [address], [place], [place], [address], [place] tel:[phone] Home Visit Other intervertebra l disc displacement, lumbar regionPostlam inectomy syndrome, not elsewhere classifiedOth er intervertebra l disc degeneration, lumbosacral regionLow back painPostlamin ectomy syndrome, not elsewhere classified 0 RN RN. [address] [facility] [address], [place], [address], [place]. tel:[phone] Referring Provider: Ricco Pedraza, [address] [place] [address] [facility], [place], [address]. tel:[phone] ELLIOTT Navarro, [address] [facility] [address], [address], [place] tel:[phone] Home Visit No Information 0 RN RN. [address] [facility] [address], [place], [address], [place]. tel:[phone] Referring Provider: Ricco Pedraza, [address] [place] [address] [facility], [place], [address]. tel:[phone] [facility], [address] [facility] [address], [place], [address], [place] tel:[phone] Home Visit back pain (chief complaint) Postlaminecto my syndrome, not elsewhere classifiedOth er intervertebra l disc degeneration, lumbosacral regionLow back painOther intervertebra l disc displacement, lumbar regionPostlam inectomy syndrome, not elsewhere classified 0 RN RN. [address] [facility] [address], [place], [address], [place]. tel:[phone] Referring Provider: Ricco Pedraza, [address] [place] [address] [facility], [place], [address]. tel:[phone] ELLIOTT Navarro, [address], [address], [place] tel:[phone] Home Visit No Information 0 RN RN. [address] [facility] [address], [place], [address], [place]. tel:[phone] Referring Provider: Ricco Pedraza, [facility]0 [facility] [address] [facility], [place], [address]. tel:[phone] [facility], [address], [place], [place], [address], [place] tel:[phone] Home Visit No Information 0 RN RN. [address] , [address], [place], [place], [address], [place]. tel:[phone] Referring Provider: Ricco Pedraza, [facility]0 [facility] [address] [facility], [place], [address]. tel:[phone] [facility], [address] [facility] [address], [place], [place], [address], [place] tel:[phone] Home Visit No Information 0 RN RN. [address] , [address], [place], [place], [address], [place]. tel:[phone] Referring Provider: Ricco Pedraza, [address] [place] [address] [facility], [place], [address]. tel:[phone] [facility], [address] [facility] [address], [place], [place], [address], [place] tel:[phone] Home Visit Postlaminecto my syndrome, not elsewhere classifiedOth er intervertebra l disc degeneration, lumbosacral regionLow back painOther intervertebra l disc displacement, lumbar regionPostlam inectomy syndrome, not elsewhere classified Jun- 0 Andrea Francisco. [address], [place], [address], [place]. tel:[phone] Referring Provider: Ricco Pedraza, [address] [place] [address] [address] [facility], [place], [address]. tel:[phone] [facility], [address], [place], [place], [address], [place] tel:[phone] Home Visit back pain (chief complaint) Postlaminecto my syndrome, not elsewhere classifiedPos tlaminectomy syndrome, not elsewhere classified 0 RN RN. [address], [address], [place], [address], [place]. tel:[phone] Referring Provider: Ricco Pedraza, [facility]0 [facility] [address] [facility], [place], [address]. [phone] [facility], [address], [place], [address], [place] tel:[phone] [facility] No Information 0 Burgess Peña. [address] [facility] [address], [place], [address], [place]. tel:[phone] Referring Provider: Ricco Pedraza, [facility]0 [facility] [address] [facility], [place], [address]. [phone] [facility], [address], [address], [place] tel:[phone] Home Visit No Information 0 RN RN. [address], [address], [place], [address], [place]. tel:[phone] Referring Provider: Ricco Pedraza, [facility]0 [facility] [address] [facility], [place], [address]. tel:[phone] [facility], [address], [place], [address], [place] tel:[phone] Home Visit back pain (chief complaint) Postlaminecto my syndrome, not elsewhere classifiedPos tlaminectomy syndrome, not elsewhere classified Dec-0 2-201 9 [facility]. [address], [address], [place], [place], [address], [place]. tel:[phone] Referring Provider: Ricco Pedraza, [facility] [address] [facility], [place], [address]. tel:[phone] [facility], [address] [facility] [address], [place], [address], [place] tel:[phone] Home Visit No Information [facility]. [address], [address], [place], [address], [place]. tel:[phone] Referring Provider: Ricco Pedraza, [address] [place], [place] [address] [address] [place] [address] [facility], [place], [address]. tel:[phone] [facility], [address], [place], [place], [address], [place] tel:[phone] Home Visit back pain (chief complaint) Postlaminecto my syndrome, not elsewhere classifiedLow back painOther intervertebra l disc degeneration, lumbosacral regionPain in right footPain in left footPostlamin ectomy syndrome, not elsewhere classified [facility]. [address], [facility] [address], [place], [place], [address], [place]. tel:[phone] Referring Provider: Ricco Pedraza, [facility]0 [facility] [address] [facility], [place], [address]. tel:[phone] [facility], [address] [facility] [address], [place], [place], [address], [place] tel:[phone] Home Visit No Information 9 [facility]. [address], [facility] [address], [place], [place], [address], [place]. tel:[phone] Referring Provider: Ricco Pedraza, [facility]0 [facility] [address] [facility], [place], [address]. tel:[phone] Est Pt Eval 25 Min [facility], [address], [place], [place], [address], [place] tel:[phone] [facility] Ankle Pain (chief complaint) Postlaminecto my syndrome, not elsewhere classifiedSpo ndylosis w/o myelopathy or radiculopathy , lumbar regionPain disorder with related psychological factorsPostla minectomy syndrome, not elsewhere classified Oct- 9 Andrea Snyderh. [address], [place], [address], [place]. tel:[phone] Referring Provider: Ricco Pedraza, [facility]0 [facility] [address] [facility], [place], [address]. tel:[phone] Est Pt Eval 25 Min [facility], [address], [place], [place], [address], [place] tel:[phone] [facility] pain (chief complaint) Spondylosis w/o myelopathy or radiculopathy , lumbar regionPostlam inectomy syndrome, not elsewhere classifiedOth er intervertebra l disc degeneration, lumbosacral regionSpondyl osis w/o myelopathy or radiculopathy , lumbar region Sep- 9 Andrea Snyderh. [address], [place], [address], [place]. tel:[phone] Referring Provider: Ricco Pedraza, [address] [facility] [facility], [place], [address]. tel:[phone] Est Pt Eval 25 Min [facility], [address], [place], [place], [address], [place] tel:[phone] [facility] back pain (chief complaint) Spondylosis w/o myelopathy or radiculopathy , lumbar regionOther intervertebra l disc degeneration, lumbosacral regionPain disorder with related psychological factorsSpondy losis w/o myelopathy or radiculopathy , lumbar region Sep-0 9 Andrea Francisco. [address] [facility] [address], [place], [address], [place]. tel:[phone] Referring Provider: Ricco Pedraza, [address] [facility] [address] [facility], [place], [address]. tel:[phone] Est Pt Eval 25 Min [facility], [facility], [address], [place], [place], [address], [place] tel:[phone] [facility] back pain (chief complaint) Pain disorder with related psychological factorsOther spondylosis with radiculopathy , lumbar regionOther spondylosis with radiculopathy , lumbosacral regionOther spondylosis with radiculopathy , lumbar region Aug- 9 Andrea Francisco. [address] [facility] [address], [place], [address], [place]. tel:[phone] Referring Provider: Ricco Pedraza, [address] [facility] [address] [facility], [place], [address]. tel:[phone] [facility], [facility], [address], [place], [place], [address], [place] tel:[phone] [facility] No Information 9 Liss Chacko. [address], [place], [place], [address], [place]. tel:[phone] Referring Provider: Ricco Garrison, [address], [place], [address]. tel:[phone] [facility], [address] [facility], [address], [place], [address], [place] tel:[phone] [facility] back pain (chief complaint) Postlaminecto my syndrome, not elsewhere classifiedOth er spondylosis with radiculopathy , lumbar regionOther intervertebra l disc degeneration, lumbosacral regionOpioid dependence, uncomplicated [facility]. [address] [facility] [address], [place], [place], [address], [place]. tel:[phone] Referring Provider: Ricco Garrison, [address] [facility] [address], [place], [address]. tel:[phone] Est Pt Eval 15 Min [facility], [facility], [address] [facility] [address], [place], [place], [address], [place] tel:[phone] [facility] back pain (chief complaint) Pain disorder with related psychological factorsOther intervertebra l disc degeneration, lumbosacral regionPostlam inectomy syndrome, not elsewhere classifiedOpi oid dependence, uncomplicated Other spondylosis with radiculopathy , lumbar regionPain in left footPain in right footOpioid use, unspecified, uncomplicated 9 Hoff Rougui. [address] [facility] [address], [place], [address], [place]. tel:[phone] Referring Provider: Ricco Hill MD K, [address] [facility] [address] [facility], [place], [address]. tel:[phone] [facility], [facility], [address] [facility] [address], [place], [place], [address], [place] tel:[phone] [facility] back pain (chief complaint) Postlaminecto my syndrome, not elsewhere classified 9 RN RN. [address] [facility], [address], [place], [place], [address], [place]. tel:[phone] Referring Provider: Ricco Pedraza, [address] [facility] [address] [facility], [place], [address]. tel:[phone] Ramon [facility], [address] [facility] [address], [place], [place], [address], [place] tel:[phone] [facility] No Information 9 Liss Chacko. [address], [place], [place], [address], [place]. tel:[phone] Referring Provider: Ricco Garrison, [address], [place], [address]. tel:[phone] [facility], [address] [facility], [address], [place], [address], [place] tel:[phone] [facility] back pain (chief complaint) Postlaminecto my syndrome, not elsewhere classifiedOth er spondylosis with radiculopathy , lumbar regionOther intervertebra l disc degeneration, lumbosacral regionOpioid dependence, uncomplicated [facility]. [address] [facility] [address], [place], [place], [address], [place]. tel:[phone] Referring Provider: Ricco Garrison, [address], [place], [address]. tel:[phone] Est Pt Eval 15 Min Ramon [facility], [address] [facility] [address], [place], [place], [address], [place] tel:[phone] [facility] back pain (chief complaint) Low back painOpioid use, unspecified, uncomplicated Other intervertebra l disc displacement, lumbar regionSpondyl osis w/o myelopathy or radiculopathy , lumbar regionOther intervertebra l disc degeneration, lumbosacral regionPostlam inectomy syndrome, not elsewhere classifiedOth er spondylosis with radiculopathy , lumbosacral regionOther spondylosis with radiculopathy , lumbar region Hoff Rougui. [address] [facility] [address], [place], [address], [place]. tel:[phone] Referring Provider: Ricco Pedraza, [address] [facility] [address] [facility], [place], [address]. tel:[phone] Est Pt Eval 15 Min [facility], [address] [facility] [address], [place], [place], [address], [place] tel:[phone] [facility] back pain (chief complaint) Other intervertebra l disc degeneration, lumbosacral regionPostlam inectomy syndrome, not elsewhere classifiedPai n in left footLong term (current) use of opiate analgesic Alecia Tran. [address] [facility], [address], [place], [place], [address], [place]. tel:[phone] Referring Provider: Ricco Pedraza, [address] [facility] [address] [facility], [place], [address]. tel:[phone] Est Pt Eval 15 Min [facility], [address] [facility] [address], [place], [place], [address], [place] tel:[phone] [facility] back pain (chief complaint) Low back painOther intervertebra l disc displacement, lumbar regionOther intervertebra l disc degeneration, lumbosacral regionLong term (current) use of opiate analgesicOpio id use, unspecified, uncomplicated Pain disorder with related psychological factors Hoff Rougui. [address] [facility] [address], [place], [address], [place]. tel:[phone] Referring Provider: Ricco Pedraza, [address] [facility] [address] [facility], [place], [address]. tel:[phone] [facility], [address] [facility] [address], [place], [place], [address], [place] tel:[phone] [facility] back pain (chief complaint) Pain in left footPostlamin ectomy syndrome, not elsewhere classifiedPai n in left foot Liss Chacko. [address] [facility] [address], [place], [place], [address], [place]. tel:[phone] Referring Provider: Ricco Pedraza, [address] [facility] [address] [facility], [place], [address]. tel:[phone] [facility], [address] [facility], [address], [place], [address], [place] tel:[phone] [facility] back pain (chief complaint) Postlaminecto my syndrome, not elsewhere classifiedOth er intervertebra l disc degeneration, lumbosacral regionOther spondylosis with radiculopathy , lumbar regionOpioid dependence, uncomplicated Postlaminecto my syndrome, not elsewhere classifiedOth er intervertebra l disc degeneration, lumbosacral regionOther spondylosis with radiculopathy , lumbar regionOpioid dependence, uncomplicated 9 Liss Chacko. [address], [place], [place], [address], [place]. tel:[phone] Referring Provider: Ricco Pedraza, [address] [facility] [facility], [place], [address]. tel:[phone] [facility], [address] [facility] [address], [place], [place], [address], [place] tel:[phone] [facility] No Information 9 Liss Chacko. [address], [place], [place], [address], [place]. tel:[phone] Referring Provider: Ricco Pedraza, [address] [facility] [address] [facility], [place], [address]. tel:[phone] JOSE ANTONIO Navarro, [address] [facility] [address], [place], [place], [address], [place] tel:[phone] [facility] Low back pain 9 Phong Jamila. [address] [facility] [address], [place], [address], [place]. tel:[phone] Referring Provider: Ricco Pedraza, [facility]0 [facility] [address] [facility], [place], [address]. tel:[phone] Est Pt Eval 25 Min JOSE ANTONIO Navarro, [address] [facility], [place], [place], [address], [place] tel:[phone] [facility] back pain (chief complaint) rat exterminator (current) use of opiate analgesicSpon dylosis w/o myelopathy or radiculopathy , lumbar regionPostlam inectomy syndrome, not elsewhere classifiedOth er intervertebra l disc displacement, lumbar regionPain in left footPain in right footLow back pain 9 Deja Clifford. [address] [facility] [address], [place], [place], [address], [place]. tel:[phone] Referring Provider: Ricco Pedraza, [address] [place] [address] [facility], [place], [address]. tel:[phone] Psychotherap y, 30 minutes with patient ELLIOTT Navarro, [address] [facility], [place], [place], [address], [place] tel:[phone] [facility] Opioid use, unspecified, uncomplicated Pain disorder with related psychological factors 9 Lokesh Morrison. [address] [facility], [address], [place], [place], [address], [place]. tel:[phone] Referring Provider: Ricco Pedraza, [address] [place] [address] [address] [facility], [place], [address]. tel:[phone] [id number] [facility], [address] [facility], [facility], [place], [address], [place] tel:[phone] [facility] back pain (chief complaint) Postlaminecto my syndrome, not elsewhere classifiedOth er spondylosis with radiculopathy , lumbar regionOther intervertebra l disc degeneration, lumbosacral regionPostlam inectomy syndrome, not elsewhere classifiedOth er spondylosis with radiculopathy , lumbar regionOther intervertebra l disc degeneration, lumbosacral region Liss Chacko. [address] [facility] [address], [place], [place], [address], [place]. tel:[phone] Referring Provider: Ricco Pedraza, [facility]0 [facility] [address] [facility], [place], [address]. tel:[phone] [facility], [address] [facility] [address], [place], [place], [address], [place] tel:[phone] [facility] No Information 9 Liss Chacko. [address], [place], [place], [address], [place]. tel:[phone] Referring Provider: Ricco Pedraza, [facility]0 [facility] [address] [facility], [place], [address]. tel:[phone] Est Pt Eval 15 Min [facility], [address] [facility] [address], [place], [place], [id number], [place] tel:[phone] [facility] back pain (chief complaint) Pain in left footLow back painPostlamin ectomy syndrome, not elsewhere classifiedLon g term (current) use of opiate analgesicOthe r intervertebra l disc degeneration, lumbosacral regionSpondyl osis w/o myelopathy or radiculopathy , lumbar regionOpioid use, unspecified, uncomplicated Aug- 9 Dioniwalt Venessa. [address], [place], [place], [address], [place]. tel:[phone] Referring Provider: Ricco Pedraza, [facility] [address] [facility], [place], [address]. tel:[phone] Psychotherap y, 30 minutes with patient [facility], [address], [place], [place], [address], [place] tel:[phone] [facility] Pain disorder with related psychological factors 9 Lisa Greenwood. [address], [place], [address], [place]. tel:[phone] Referring Provider: Ricco Pedraza, [facility] [address] [facility], [place], [address]. tel:[phone] [facility], [address], [place], [place], [address], [place] tel:[phone] [facility] Low back painLow back pain Aug- [facility] Jamila. [address], [place], [address], [place]. tel:[phone] Referring Provider: Ricco Pedraza, [facility] [address] [facility], [place], [address]. tel:[phone] [facility], [address], [place], [place], [address], [place] tel:[phone] [facility] Low back painLow back pain 9 [facility] Jamila. [address], [place], [address], [place]. tel:[phone] Referring Provider: Ricco Pedraza, [address] [facility] [address] [facility], [place], [address]. tel:[phone] Psychiatric Diagnostic Evaluation [facility], [address] [facility] [address], [place], [place], [address], [place] tel:[phone] [facility] Opioid use, unspecified, uncomplicated Pain disorder with related psychological factors 9 Lokesh Morrison. [address] [facility], [address], [place], [place], [address], [place]. tel:[phone] Referring Provider: Ricco Pedraza, [address] [facility] [address] [facility], [place], [address]. tel:[phone] New Pt Eval 60 Min Ramon [facility], [address] [facility] [address], [place], [place], [address], [place] tel:[phone] [facility] back pain (chief complaint) Low back painSpondylos is w/o myelopathy or radiculopathy , lumbar regionOther intervertebra l disc degeneration, lumbosacral regionPain in right footPain in left footOpioid use, unspecified, uncomplicated rat exterminator (current) use of opiate analgesicOthe r intervertebra l disc displacement, lumbar regionPostlam inectomy syndrome, not elsewhere classified 9 Liss Barboza. [address] [facility] [address], [place], [place], [address], [place]. tel:[phone] Referring Provider: Ricco Pedraza, [facility]0 [facility] [address] [facility], [place], [address]. tel:[phone] aRmon [facility], [address] [facility], [place], [place], [address], [place] tel:[phone] [facility] No Information 9 Liss Barboza. [address] [facility] [address], [place], [address], [place]. tel:[phone] Referring Provider: Ricco Pedraza, [address] [facility] [address] [facility], [place], [address]. tel:[phone] Ramon [facility], [address], [place], [place], [address], [place] tel:[phone] Judithlupe Navarro [facility] 7[address] No Information 1 Kriss Ridley. [address], [place], [place], [address], [place]. tel:[phone] Referring Provider: REFERRAL SELF, CLARIBEL. Est Pt Eval 25 Min Ramon [facility], [address] [facility] [address], [place], [place], [address], [place] tel:[phone] [facility] No Information 1 No Information Referring Provider: REFERRAL SELF, CLARIBEL. Offic/outpt E&m Estab Mod [facility], [address] [facility] [address], [place], [place], [address], [place] tel:[phone] [facility] No Information 1 Tomshine Amelia. [address] , [address], [place], [place], [address], [place]. tel:[phone] Referring Provider: REFERRAL SELF, CLARIBEL. Ramon [facility], [address], [place], [place], [address], [place] tel:[phone] [facility] No Information 1 Tomshine Amelia. [address], [place], [address], [place]. tel:[phone] Referring Provider: REFERRAL SELFCLARIBEL. Ramon [facility], [address] [facility] [address], [place], [place], [address], [place] tel:[phone] [facility] No Information 4-201 0 Tomshine Amelia. [address], [address], [place], [address], [place]. tel:[phone] Referring Provider: Fidencio Jon MD, [address] [place], [address]. tel:[phone] ELLIOTT [facility], [address], [place], [address], [place] tel:[phone] [facility] No Information 0-201 0 Tomshine Amelia. [address], [address], [place], [address], [place]. tel:[phone] Referring Provider: Fidencio Jon MD, [address] [place], [address]. tel:[phone] ELLIOTT Navarro, [address], [place], [address], [place] tel:[phone] [facility] No Information 0 Tomshine Amelia. [address], [place], [address], [place]. tel:[phone] Referring Provider: Fidencio Jon MD, [address] [place], [address]. tel:[phone] ELLIOTT Nav[facility], [address], [place], [address], [place] tel:[phone] Judith Navarro [facility] 7390 No Information 3-201 0 Kriss Ridley. [address], [address], [place], [address], [place]. tel:[phone] Referring Provider: Ilir Lind MD, [address] [facility] [place], [address]. tel:[phone] Offic/outpt E&m Estab Minor 10 ELLIOTT Navarro, [address], [place], [place], [address], [place] tel:[phone] [facility] No Information 0 Jose Cisneros. [address], [address], [place], [place], [address], [place]. tel:[phone] Referring Provider: Ilir Lind MD, [address] [place], [address]. tel:[phone] Est Pt Eval 25 Min [facility], [address], [place], [place], [address], [place] tel:[phone] [facility] No Information 0 No Information Referring Provider: Ilir Lind MD, [address] [place], [address]. [phone] Offic/outpt E&m Estab Minor 10 [facility], [address], [place], [place], [address], [place] tel:[phone] [facility] No Information 0 No Information Referring Provider: Fidencio Jon MD, [address] [place], [address]. tel:[phone] [facility], [address], [place], [place], [address], [place] tel:[phone] [facility] No Information 9 No Information Referring Provider: Ilir Lind MD, [address] [place], [address]. tel:[phone] [facility], [address], [place], [place], [address], [place] tel:[phone] [facility] No Information 0 9 No Information Referring Provider: Ilir Lind MD, [address] [place], [address]. tel:[phone] Offic/outpt E&m Estab Minor 10 [facility], [address] [facility] [address], [place], [address], tel:[phone] [facility] No Information 9 No Information Referring Provider: Ilir Lind MD, [address] [facility] [address] [place], [address]. [phone] [facility], [address] [facility] [address], [place], [address], tel:[phone] [facility] No Information No Information Referring Provider: Ilir Lind MD, [address] [facility] [address] [place], [address]. tel:[phone] Offic Cons New/estab Mod-hi 60 [facility], [address] [facility] [address], [place], [address], tel:[phone] [facility] No Information Jose Cisneros. [address] [facility], [address], [place], [place], [address], [place]. tel:[phone] Referring Provider: Ilir Lind MD, [address] [facility] [address] [place], [address]. tel:[phone] Family History Family Member Type Diagnosis Age At Onset Father Problem (finding) aneurysm of thoracic ao rta Brother Problem (finding) rheumatoid arthritis Mother Problem (finding) rheumatoid arthritis Payers Payer name Insurance type Covered libertarian ID Authortalaa benjie(s) [employer] [facility] [id number] Social History Type Description Quantity Date Captured Comments Alcohol Use Details Unknown Caffeine Use Details Unknown Tobacco Use Status Smoking Status No Information Sex Male Chief Complaint And Reason For Visit No Information Reason For Referral Reason For Referral No Information Plan Of Treatment Date Type Action Status Goal Tobacco cessation counseling completed Goal Lifestyle education regardin g diet completed Goal Tobacco cessation counseling completed Goal Tobacco cessation counseling completed Referral Ordered: Behavioral Health (related to Other intervertebral disc displacement, lumbar region) ordered Referral Ordered: Referrals: Behavioral Health. Evaluate and treat ordered Referral Referred To: catheter dye study Ordered: catheter dye study ordered Referral Referred To: lumbar epidural steroid injection Ordered: lumbar epidural steroid injection L4-5 ordered Appointment Gianni Mijares BOOKED Appointment Gianni Mijares BOOKED History Of Present Illness Encounter Date Complaint History Of Prese nt Illness lower back pain The pain is loca kathi in the low back on both sides. The lower back pain radiates into the right hip. Pain intensity is currently 9/10.The pain is described as sharp and pulsating. The following activities make the pain worse: direct pressure, leaning backwards and leaning forward. The following activities make the pain better: cold. lower back pain The primary pain involves the lower back. Pain intensity is currently 8/10.The pain has been stable . lower back pain The pain is loca kathi in the low back on both sides. Pain intensity is currently 7/10. is 9/10 at its worst, 7/10 at its best,The pain has been stable. The pain is persistently. lower back pain The pain is loca kathi in the low back on both sides. Pain intensity is currently 8/10.The pain has been stable. The pain is persistently. Pump Visit The pain is loca kathi in the low back on both sides. The pain has been stable. It occurs persistently. Pump Visit The pain is loca kathi in the low back on both sides. Pain intensity is currently 8/10. 7/10 at its best,The pain has been stable. It occurs persistently. Pump Visit The primary pain involves the lower back. Pain intensity is currently 7/10. Pain is usually 9/10, 7/10 at its best,It occurs persistently. Pump Visit The pain is loca kathi in the low back on both sides. Pain intensity is currently 8/10.The pain has been stable. It occurs persistently. Pump Visit The pain is loca kathi in the low back on both sides. Pain intensity is currently 8/10.The pain has been stable. It occurs persistently. back pain Location of pain is lower back. Pain is radiated to the left calf and left thigh. back pain Location of pain is lower back. Pain is radiated to the left calf, left foot and left thigh. Pump Visit The pain is loca kathi in the low back on both sides. The lower back pain radiates into the both ankles. The pain has been stable. It occurs persistently. back pain Location of pain is lower back. left leg pain Location: left. back pain Location of pain is lower back. joint pain Location: bilate ral ankle. back pain Location of pain is lower back. Body aches Location: LB, an kles, R foot and R knee. back pain Location of pain is lower back. Pain is radiated to the left calf and left thigh. back pain Severity level i s 8. Location of pain is lower back, right knee, both ankles and and right foot.The patient describes the pain as an ache, burning, sharp and throbbing. Symptoms are aggravated by bending, daily activities and lifting. Symptoms are relieved by ice and pain meds/drugs. back pain Location of pain is lower back. Pain is radiated to the left calf and left thigh. back pain Location of pain is lower back. Pain is radiated to the left calf and left thigh. back pain Location of pain is lower back. Pain is radiated to the left ankle, right ankle, left calf, right calf, right foot, left thigh and right thigh. back pain Location of pain is lower back. bilateral leg pain Location: amor ateral. back pain Location of pain is lower back. left leg pain Location: left. back pain Location of pain is lower back. Pain is radiated to the left calf and left thigh. back pain Location of pain is lower back. left leg pain Location: left. back pain Location of pain is upper back, middle back and lower back. Ankle Pain Location: bilate ral ankle. back pain Location of pain is lower back. back pain Location of pain is lower back. back pain Location of pain is lower back and legs. Pain is radiated to the left ankle, right ankle, left foot and right foot.The patient describes the pain as an ache, burning, deep, sharp, shooting, stabbing and throbbing. Symptoms are aggravated by ascending stairs, changing positions, daily activities, extension, flexion, lifting, pushing, running, sitting, standing, twisting and walking. Symptoms are relieved by ice, lying down, massage, movement, pain meds/drugs and stretching. back pain Location of pain is lower back.The patient describes the pain as an ache, burning, sharp, stabbing and throbbing. back pain Location of pain is lower back. back pain Location of pain is lower back. Pain is radiated to the left ankle, right ankle, left foot and right foot.The patient describes the pain as an ache, burning, deep, sharp, shooting, stabbing and throbbing. Symptoms are aggravated by bending, changing positions, daily activities, extension, flexion, lifting, lying/rest, pushing, running, sitting, standing, twisting and walking. Symptoms are relieved by ice, lying down, massage, movement, pain meds/drugs and stretching. back pain Location of pain is lower back. Pain is radiated to the left ankle, right ankle, left foot and right foot.The patient describes the pain as an ache, burning, deep, dull, numbness, sharp, shooting, stabbing and throbbing. Symptoms are aggravated by bending, changing positions, daily activities, extension, flexion, lifting, pushing, running, sitting, standing, twisting and walking. Symptoms are relieved by ice, lying down, massage, movement, pain meds/drugs and stretching. back pain Location of pain is lower back. back pain It occurs persis tently. Location of pain is lower back. back pain Location of pain is lower back. Pain is radiated to the left leg and ankle.The patient describes the pain as an ache, burning, deep, piercing, shooting and stabbing. back pain Severity level i s 8. The problem is stable. Location of pain is lower back and both ankles. Pain is radiated to the left leg.The patient describes the pain as an ache, burning, deep, piercing, shooting and stabbing. Symptoms are aggravated by bending, lifting and twisting. Symptoms are relieved by ice, movement and rest. Ankle Pain Location: ankle. back pain back pain back pain back pain Location of pain is lower back. back pain Severity level i s 9. The problem is stable. It occurs persistently. Location of pain is lower back.The patient describes the pain as dull and sharp. Symptoms are aggravated by bending, daily activities, jumping, lifting, lying/rest, pushing, standing and walking. Symptoms are relieved by exercise, lying down, injection, pain meds/drugs, stretching, rest and sitting. back pain back pain Location of pain is lower back. back pain Severity level i s 9. The problem is stable. It occurs persistently. Location of pain is lower back.The patient describes the pain as sharp and throbbing. Symptoms are aggravated by bending, daily activities, jumping, lifting, pushing, sitting, standing, walking, Household duties, Shopping and Driving and Getting out of bed or chair. Symptoms are relieved by exercise, heat, lying down, injection, massage, pain meds/drugs, physical therapy, stretching and rest. back pain Severity level i s 6. The problem is worsening. It occurs persistently. Location of pain is lower back.The patient describes the pain as burning, sharp and throbbing. Symptoms are aggravated by ascending stairs, bending, daily activities, descending stairs, jumping, lifting, pushing, sitting, walking, driving, getting out of bed/chair, household duties and pulling and shopping. Symptoms are relieved by exercise, ice, lying down, injection, massage, pain meds/drugs, physical therapy, stretching and rest. back pain Severity level i s 7. The problem is worsening. It occurs persistently. Location of pain is lower back. Pain is radiated to the left calf, left foot and left thigh.The patient describes the pain as burning and sharp. Symptoms are aggravated by bending, daily activities, jumping, lifting, pushing, Driving, Rising from bed/chair, household duties and pulling. Symptoms are relieved by exercise, ice, lying down, massage, pain meds/drugs, physical therapy, stretching and rest. back pain back pain Severity level i s moderate. The problem is stable. It occurs persistently. Location of pain is lower back, right flank and right leg.The patient describes the pain as an ache, burning, sharp and throbbing. back pain Severity level i s 7. The problem is fluctuating. It occurs persistently. Location of pain is lower back.The patient describes the pain as burning and sharp. Symptoms are aggravated by bending, daily activities, extension, flexion, jumping, lifting and pushing. Symptoms are relieved by exercise, ice, lying down, massage, pain meds/drugs, physical therapy and rest. back pain Severity level i s moderate. The problem is stable. It occurs persistently. Location of pain is lower back. back pain Severity level i s 9. The problem is fluctuating. It occurs persistently. Location of pain is lower back.There is no radiation of pain. The patient describes the pain as burning and sharp. Symptoms are aggravated by bending, daily activities, jumping, lifting and pushing. Symptoms are relieved by ice, lying down, massage, pain meds/drugs, physical therapy, stretching and rest. back pain Severity level i s 9. The problem is fluctuating. It occurs persistently. Location of pain is lower back. Pain is radiated to the left ankle, right ankle, left calf, right calf, left foot and right foot.The patient describes the pain as burning, stabbing, throbbing and cramping. Symptoms are aggravated by ascending stairs, bending, daily activities, descending stairs, jumping, lifting, lying/rest, pushing, sitting, standing and walking. Symptoms are relieved by heat, ice, lying down, massage, pain meds/drugs, physical therapy and rest. Functional Status Date Functional Assessmen t No Information Instructions Date Instruction Additional Infor jacquie Continue with curren t settings. Concerns to be addressed with provider later this week via telehealth. Related to Postlaminectomy syndrome, not elsewhere classified - Prescribed gabapen tin 300mg 3x/day*start with 1x/day and increase to 3x/day every 3-5 days as tolerated. -Continue Tizanidine 4mg up to 1-2 tabs 2x/day as needed -Follow up with home infusion as scheduled- Follow up with Sharon Ayala in 4 weeks, telehealth okay Related to Other spondylosis with radiculopathy, lumbar region Giving encouragement to exercise Related to Body mass index [BMI] 32.0-32.9, adult - Ordered lumbar epi dural steroid injection at L4-5, schedule once approved*Ramon will call to schedule*If wanting sedation, no eating or drinking 8 hrs prior to procedure and bring a van driver helper-Continue Tizanidine 4mg up to 1-2 tabs 2x/day as needed -Prescribed short script of Oxycodone 5mg up to 1x/day #15 as needed, for fill 10/18/23-Follow up with home infusion as scheduled Related to Other spondylosis with radiculopathy, lumbar region Giving encouragement to exercise Related to Body mass index [BMI] 32.0-32.9, adult Continue with curren t settings. Concerns to be addressed with provider later this week via telehealth. Related to Postlaminectomy syndrome, not elsewhere classified Same plan of care as statement for above diagnosis, no changes Related to Pain in unspecified ankle and joints of unspecified foot -Call Leydi on Sunday and let her know that she needs to inform [facility] on what medication is in his pump and that you're wanting to wean off pain pump and eventually switch to oral pain medication-Continue Flomax 0.4mg 1x/day, no refill today-Continue Oxycodone as prescribed through outside provider-[facility]-Follow up provider at [facility] as scheduled- Follow up with orthopedic doctor to check your right knee swelling/edema.- Follow up podiatry for your right foot/ankle pain-You have appointment with home infusion on 02/06/22 Related to Other spondylosis with radiculopathy, lumbar region Lifestyle education regarding di et Related to Body mass index [BMI] 32.0-32.9, adult Same plan of care as statement for above diagnosis, no changes Related to Pain in unspecified ankle and joints of unspecified foot Same plan of care as statement for above diagnosis, no changes Related to Postlaminectomy syndrome, not elsewhere classified Giving encouragement to exercise Related to Body mass index [BMI] 31.0-31.9, adult -Continue Belbuca 15 0mcg 2x/day, no refill today-Prescribe Flomax 0.4mg 1x/day-Continue Oxycodone as prescribed through outside provider-Discuss taking over Belbuca with other pain clinic provider-Provide literature on DRG stimulator-Will discuss plan of care at next case review-Follow up with home infusion team as scheduled-Follow up with MARIANNA in 3 weeks before 12/28/21 Related to Other spondylosis with radiculopathy, lumbar region Same. Related to Opioi d dependence, uncomplicated Same. Related to Other spondylosis with radiculopathy, lumbar region Follow up with pump nurses. Follow up with bilateral SI joint injection. Related to Postlaminectomy syndrome, not elsewhere classified Same. Related to Other intervertebral disc degeneration, lumbosacral region -Order-Refill/ Presc ribe -Follow up with MARIANNA in one month Related to Low back pain Same plan of care as statement for above diagnosis, no changes Related to Pain in left foot Same plan of care as statement for above diagnosis, no changes Related to Pain in leg Same plan of care as statement for above diagnosis, no changes Related to Pain in right foot Assessments Type Assessment Date No Information Patient Care Teams Name Effective Dates (start - stop) Status Members No Information
--- OUTSIDE RECORDS SUMMARY | 2023-11-28 08:48 | XMS_ITS | Continuity of Care Document ---
Author Organization [facility] Address [address] [place] [address] [place] [address] Phone Care Team Providers Care Sports Medicine Masseur Name Role Phone Will Dante DAILY Unavailable Unavailabl e Allergies, Adverse Reactions, Alerts Substance Reaction Status Criticality No Known Allergies Active No Inform ation Medications Medication Instructions Dosage Effective Dates (start - stop) Status Comments clonidine HCl 0.2 mg tablet take 1 tablet by oral route 2 times every day as needed for opioid withdrawal - Active venlafaxine 75 mg tablet take 1 tablet by oral route every day with food 75 MG - Active Procedures Procedure Date OFFICE/OUTPATIENT VISIT, EST OFFICE/OUTPATIENT VISIT, EST OFFICE/OUTPATIENT VISIT, EST OFFICE/OUTPATIENT VISIT, EST OFFICE/OUTPATIENT VISIT, EST OFFICE/OUTPATIENT VISIT, EST OFFICE/OUTPATIENT VISIT, EST OFFICE/OUTPATIENT VISIT, EST Drug test def 22+ classes Drug Urine Toxology With Chromatography OFFICE/OUTPATIENT VISIT, EST OFFICE/OUTPATIENT VISIT, EST Drug test def 22+ classes Drug Urine Toxology With Chromatography OFFICE CONSULTATION Advance Directives Directive Yes / No Effective Date File Name No Information Encounters Encounter Description Practice Location Reason(s) For Visit Diagnoses Date Provider Providers Copied on Encounter [facility], [address], [id number] , [place] tel:[phone] [facility] No Information 2 Will Dante. [address] [place], [id number] , [place]. tel: [phone] [facility], [address] [place] [address] Te[place], [id number] , [place] tel: [phone] [facility] No Information Oct-2 2-201 8 Bennie Howell. [address] [facility] Frida [place], [id number] , [place]. tel: [phone] OFFICE/OUTPAT IENT VISIT, [facility], [address] [facility] [place], [place], [id number] , [place] tel: [phone] [facility] Leg Pain (chief complaint) Other intervertebral disc degeneration, lumbar regionSpondylolist hesis, lumbar regionNeuroma of amputation stump, right lower extremity Oct- 1 8 Pearson Napoleon. [employer], [address], [place], [address], [place]. tel: [phone] OFFICE/OUTPAT IENT VISIT, [facility], [address] [place] [address], [id number] , [place] tel: [phone] [facility] right foot pain (chief complaint) Spondylolisthesis, lumbar regionOther intervertebral disc degeneration, lumbar regionNeuroma of amputation stump, right lower extremity Sep-2 8-201 8 Pearson Napoleon. [employer], [address], [place], [address], [place]. tel: [phone] OFFICE/OUTPAT IENT VISIT, [facility], [address] [facility] [place], [place], [id number] , [place] tel: [phone] [facility] low back pain (chief complaint) bilateral foot pain (chief complaint) Other intervertebral disc degeneration, lumbar regionSpondylolist hesis, lumbar regionNeuroma of amputation stump, right lower extremity Sep-1 7-201 8 Pearson Napoleon. [employer], [address], [place], [address], [place]. tel: [phone] OFFICE/OUTPAT IENT VISIT, [facility], [address] [place] [address], [id number] , [place] tel: [phone] [facility] low back pain (chief complaint) Other intervertebral disc degeneration, lumbar regionSpondylolist hesis, lumbar regionNeuroma of amputation stump, right lower extremityPostlamin ectomy syndrome, not elsewhere classified Sep-0 8 Pearson Napoleon. [facility], [address], [place], [address], [place]. tel: [phone] OFFICE/OUTPAT IENT VISIT, EST [facility], [address] [place], [place], [id number] , [place] tel: [phone] [facility] low back pain (chief complaint) Postlaminectomy syndrome, not elsewhere classifiedOther intervertebral disc degeneration, lumbar regionSpondylolist hesis, lumbar regionNeuroma of amputation stump, right lower extremity Dec-2 8 Pearson Napoleon. [facility], [address], [place], [address], [place]. tel: [phone] OFFICE/OUTPAT IENT VISIT, EST [facility], [address] [place], [place], [id number] , [place] tel: [phone] [facility] low back pain (chief complaint) Postlaminectomy syndrome, not elsewhere classifiedNeuroma of amputation stump, right lower extremityOther intervertebral disc degeneration, lumbar regionSpondylolist hesis, lumbar region Dec-0 8 Pearson Napoleon. [facility], [address], [place], [address], [place]. tel: [phone] Specialist : Carlitos Ramos, [facility] [address], [place], [address] . tel:[phone] OFFICE/OUTPAT IENT VISIT, EST [facility], [address] [place], [place], [id number] , [place] tel: [phone] [facility] low back pain (chief complaint) Other intervertebral disc degeneration, lumbar regionSpondylolist hesis, lumbar regionPostlaminect charlie syndrome, not elsewhere classifiedNeuroma of amputation stump, right lower extremity Micheal Bello . [address] [place], [id number] , [place]. tel:[phone] OFFICE/OUTPAT IENT VISIT, [facility], [address] [place] [address] [place], [id number] , [place] tel: [phone] [facility] low back pain (chief complaint) Other intervertebral disc degeneration, thoracolumbar regionOther intervertebral disc degeneration, lumbar regionSpondylolist hesis, lumbar regionLow back painLong term (current) use of opiate analgesic Micheal Bello . [address] [facility] [place], [id number] , [place]. tel:[phone] Specialist : Carlitos Ramos, [facility] [address], [place], [address] . tel:[phone] OFFICE/OUTPAT IENT VISIT, [facility], [address] [place] [address] [place], [place], [id number] , [place] tel:[phone] [facility] low back pain (chief complaint) Other intervertebral disc degeneration, thoracolumbar regionOther intervertebral disc degeneration, lumbar regionSpondylolist hesis, lumbar regionLow back pain Micheal Bello . [address] [facility] [place], [id number] , [place]. tel:[phone] Specialist : Carlitos Ramos, [facility] [address], [place], [address] . tel:[phone] OFFICE/OUTPAT IENT VISIT, [facility], [address] [place] [address] [place], [id number] , [place] tel:[phone] [facility] low back pain (chief complaint) Postlaminectomy syndrome, not elsewhere classifiedLow back painLong term (current) use of opiate analgesicSpondylol isthesis, lumbar regionOther intervertebral disc degeneration, lumbar regionOther intervertebral disc degeneration, thoracolumbar region Micheal Bello . [address] [facility] [place], [id number] , [place]. tel:[phone] Specialist : Carlitos Ramos, [facility] [address], [place], [address] . tel:[phone] OFFICE CONSULTATION [facility], [address] [facility] [place], [place], [id number] , [place] tel:[phone] [facility] [place] low back pain (chief complaint) Low back painPostlaminectom y syndrome, not elsewhere classifiedLong term (current) use of opiate analgesic Micheal Bello . [address] [place], [id number] , [place]. tel:[phone] Family History Family Member Type Diagnosis Age At Onset No Information Payers Payer name Insurance type Covered green party ID Authortalaa benjie(s) Oscar [facility] [id number] Social History Type Description Quantity Date Captured Comments Sex Male Smoking Status No Information Chief Complaint And Reason For Visit No Information Reason For Referral Reason For Referral No Information Plan Of Treatment Date Type Action Status Referral Ordered: MRI LUMBAR SPINE W/O DYE ordered Referral Ordered: [facility] (related to Low back pain) ordered Referral Referred To: [facility] [address] [place], [place] [id number] Ordered: Referrals: Referrals: [facility]. Evaluate and treat [facility]. Evaluate and treat ordered Referral Ordered: [facility] (related to Low back pain) ordered Referral Referred To: [facility] [address] [place], [place] [id number] Ordered: Referrals: [facility]. Location: [facility]. Evaluate and treat ordered Future Order: Lab Order COMPLIAN CE DRUG ANALYSIS, URINE, WITH MED REPORT ([id number]), Ordered on: Ordered Future Order: Lab Order COMPLIAN CE DRUG ANALYSIS, URINE, WITH MED REPORT ([id number]), Ordered on: Ordered History Of Present Illness Encounter Date Complaint History Of Prese nt Illness Leg Pain Severity level i s 5. It occurs constantly and is worsening. Location: low back, right residual limb, right knee and left foot. There is no radiation. The pain is aching, burning and sharp. The pain is aggravated by all activities. The pain is relieved by ice, massage, pain/RX meds, rest, PT, TENS, walking, standing, strerching and lying down. Leg Pain (comments) Mr. Mijares is here for follow up and medications refill. Presents with #14 oxycodone-- 2 days short. He thinks the remaining pills are still in his dispensary machine at home. Reports current medication regimen provides 60% pain relief. Denies side effects from current medication regimen. Pain is worse. Had foot sx for infection on 02/18-- waiting on lab results to see if infection has spread to bone, he may need residual limb amputated. Pt understands he will no longer be getting opioids from [facility]-- states he would still like to pursue SCS trial once foot issues have resolved.No other red flags or neurologic symptoms. right foot pain (comments) Mr. Gonzalo sparrow is here for follow up and medications refill. Presents with #6 oxycodone-- 1.5 days short. He insists he is taking meds as rx'd-- says he asked nurse to empty his machine last night. Reports current medication regimen provides 50% pain relief. Denies side effects from current medication regimen. Pain is worse. States he will have sx on right residual limb d/t recent infection-- sx scheduled on 02/13. Pt states he will likely get opioid rx from surgeon for post-op pain. Indicates continued interest in SCS trial, although he will have to wait d/t upcoming sx.No other red flags or neurologic symptoms. right foot pain Duration: chroni c. Severity level is 5. It occurs constantly and is worsening. Location: right foot and low back. There is no radiation. The pain is aching, burning, sharp, pulsating and stabbing. The pain is aggravated by bending and lifting. The pain is relieved by pain/RX meds and rest. bilateral foot pain Duration: ch ronic. Severity level is 3. It occurs constantly and is worsening. Location: right foot and lower back. There is no radiation. The pain is burning and sharp. The pain is aggravated by all activity. The pain is relieved by ice, massage, pain/RX meds, physical therapy, rest, stretching, changing positions, chiropractic, lying down and TENS. low back pain bilateral foot pain (comments) Bladimir Mijares is here for follow up and medications refill. Presents with no meds-- states he ran out yesterday. Reports current medication regimen provides 60% pain relief. Denies side effects from current medication regimen. Pain is worse. Reports persistent bleeding at amputation site of right lower limb after hitting it 4 days ago-- states he will consult foot surgeon. States he is still interested in pursuing SCS trial. No other red flags or neurologic symptoms. low back pain Severity level i s 4. Duration: chronic. The problem is worsening. It occurs persistently. Location of pain is lower back, gluteal area and feet bilateral.There is no radiation of pain. The patient describes the pain as an ache, burning, sharp, stabbing and pulsating. Symptoms are aggravated by bending, daily activities, lifting, running, sitting, standing, twisting, walking, houswork, prolonged positioning and movement. Symptoms are relieved by ice, lying down, massage, pain meds/drugs, physical therapy, rest, chiropractic and changing positions. low back pain (comments) Mr. John ghosh is here for follow up and medications refill. Presents with no meds-- says they are in lockbox managed by nurse at home. States he was unable to get a full oxycodone rx (#75 tabs)-- pharmacy only filled #60 tabs. Reports current medication regimen provides 65% pain relief. Denies side effects from current medication regimen. Pain is worse, especially in right foot. Indicates interest in SCS.No other red flags or neurologic symptoms. low back pain Severity level i s 4. Duration: chronic. The problem is worsening. It occurs persistently. Location of pain is lower back, gluteal area and feet bilateral.There is no radiation of pain. The patient describes the pain as an ache, burning, sharp, stabbing and pulsating. Symptoms are aggravated by All activities. Symptoms are relieved by ice, lying down, massage, movement, pain meds/drugs, physical therapy, stretching, rest, sitting, TENS, PT and changing positions. low back pain (comments) Mr. John ghosh is here for follow up and medications refill. Presents with no meds-- 1 day short. Pt admits self-escalation. States he has a nurse that comes once a week to fill machine that dispenses meds, unsure how he has ran out. Reports current medication regimen provides 65% pain relief. Denies side effects from current medication regimen. Pain is worse d/t recent sx (neuroma removal)-- notes improvement in foot pain. Reports he fell last week and went to ED. No other concerns at today's OV.No other red flags or neurologic symptoms. low back pain (comments) Mr. John ghosh is here for follow up and medications refill. Presents with no meds - one day short. Some confusion w/ rx d/t insurance issues-- was only given 3 weeks worth (confirmed on [facility]). Says a home nurse has been distributing medications. Reports current medication regimen provides 65% pain relief. Denies side effects from current medication regimen. Pain is worse. States his right foot neuroma is extremely painful-- phantom and residual leg pain s/p neuroma. Pt is scheduled for sx on 12/25. Inquires about adding MSER to medication regimen.No other red flags or neurologic symptoms. low back pain Severity level i s 4. Duration: chronic. The problem is worsening. It occurs persistently. Location of pain is lower back, gluteal area, Feet bilateral and right knee.There is no radiation of pain. The patient describes the pain as an ache, burning, sharp and crunching. Symptoms are aggravated by ascending stairs, changing positions, daily activities, descending stairs, lifting, running, sitting, standing, twisting and walking. Symptoms are relieved by ice, lying down, massage, pain meds/drugs, physical therapy, stretching, rest, sitting and changing positions. low back pain (comments) Chronic LBP relatively unchanged. No new radicular or neuro symptoms. Right residual foot neuroma continues to cause pain and he is scheduled for resection 12/[address] Pearson. Denies adverse effects from medications and he is receiving about 60% pain relief. They are managed by his nurse. A short supply of MS Contin was prescribed after his last visit, but those have been completed for about 2 weeks. low back pain Duration: chroni c. Location of pain is lower back and right residual foot/stump.The patient describes the pain as burning, sharp, stabbing and throbbing. Symptoms are aggravated by ascending stairs, bending, daily activities, lifting, running, sitting, standing, twisting and walking. Symptoms are relieved by ice, lying down, massage, pain meds/drugs, physical therapy and stretching. low back pain (comments) Gianni is here for follow up and medication refill. His opioid medications are managed by his nurse. Reports 40% pain relief from the medication regimen, allowing him to be more active. He has now tapered off Morphine- he requests to start this again due to increased foot pain. He has started physical therapy at [facility] for low back pain, once per week. Recently diagnosed with torn ligaments in left ankle, managed by Dr. Pearson. Had a steroid injection into left foot neuroma last week, relief lasted 1 day. He will be following up with Dr. Pearson next week, the neuroma will likely be removed.Patient is hoping to start seeing a psychologist to discuss coping mechanisms for his pain. He requests a referral today. low back pain Severity level i s 6. Duration: chronic. The problem is worsening. It occurs persistently. Location of pain is lower back.The patient describes the pain as an ache, burning, sharp, stabbing and pulsating. low back pain (comments) Gianni is here for f/u. Has #3 oxycodone 15mg - remaining medications are locked away at home and managed by home health RN. Pain medications relieve 70% of his pain. He was unable to fill whole prescription due to insurance. States he misses the morphine now that he has decreased, but oxycodone provides more pain relief for him; believes the increase in pain may be psychological since decreasing morphine. May-17-2018 low back pain Severity level i s 4. Duration: chronic. The problem is worsening. It occurs persistently. Location of pain is lower back. Pain is radiated to the left ankle and right ankle.The patient describes the pain as burning, sharp and stabbing. Symptoms are aggravated by bending, daily activities, lifting, standing, twisting, walking and stairs. Symptoms are relieved by lying down, massage, pain meds/drugs, rest and TENS. low back pain (comments) Gianni is here for a followup after initial consult. He would like [facility] to take over medication management, was previously being managed by Dr. Grijalva. Medications provide 70% relief from pain; pt denies side effects. Continues to c/o low back pain and neuropathy of b/l feet. Sp L4-5 fusions; was told by Dr. Ramos at 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 Patient would like to avoid additional surgery. TENS unit is helpful at relieving pain. Oxycodone provides more relief compared to Morphine, would prefer to stop MSER and continue Oxycodone 7/day. Has a nurse that comes to his house once a week that manages his medication, uses a locked machine that dispenses the medication. His nurse will be coming tomorrow. No other concerns today. low back pain Severity level i s 4. Duration: chronic. The problem is worsening. It occurs persistently. Location of pain is lower back and BL foot.The patient describes the pain as an ache, burning, sharp and stabbing. Symptoms are aggravated by ascending stairs, bending, descending stairs, lifting, running, sitting, standing, twisting, walking, housework, movement and prolonged positioning. Symptoms are relieved by heat, ice, lying down, massage, pain meds/drugs, stretching, rest, walking and TENS. low back pain (comments) Gianni presents for initial consult regarding low back pain referred by Dr. Springer. His pain begain gradually in 1997 and continued to work for three years after pain began and saw a doctor who told him to stop working. He is S/P L2-3 fusion completed in 2012 at [facility]. Also has had pain in both of his feet for 30 years now. His current medication regimen is as follows: Oxycodone 15mg MAX 7/day and MSER 15mg 3/day; MME is 312.5 mg/day. Has done chiropractor for 3 years, acupuncture for 2 years, PT at [facility] in 2004 and [facility] in 2010, 2012 and 2014 (somewhat helfpul), ESIs done at [facility] pre and post surgery; does not believe that these were helpful.Was on Gabapentin for several years although not helpful, Lyrica caused weight gain, has not tried Cymbalta, Flexeril did not provide relief, has not tried Tizanidine or Methocarbamol, did use lidoderm patches too. low back pain Severity level i s 6-9. Duration: chronic. The problem is worsening. It occurs persistently. Location of pain is lower back. Pain is radiated to the left foot and right foot.The patient describes the pain as an ache and stabbing. Symptoms are aggravated by ascending stairs, bending, descending stairs, lifting, lying/rest, running, sitting, twisting and housework. Symptoms are relieved by lying down, massage, pain meds/drugs, stretching and rest. Functional Status Date Functional Assessmen t No Information Instructions Date Instruction Additional Infor mation No Information Assessments Type Assessment Date No Information Patient Care Teams Name Effective Dates (start - stop) Status Members No Information
--- OUTSIDE RECORDS SUMMARY | 2023-11-28 08:48 | XMS_ITS | Continuity of Care Document ---
Author Organization [facility] Address [address] [place] [address] Phone Care Team Providers Care Metal Leaf Layer Name Role Phone Trenton Ware MD Unavailable Unavailable Allergies, Adverse Reactions, Alerts Substance Reaction Status Criticality No Known Allergies Active No Inform ation Medications Medication Instructions Dosage Effective Dates (start - stop) Status Comments DILAUDID (unknown strength) Not Available - Active CYMBALTA (unknown strength) Not Available - Active EFFEXOR (unknown strength) Not Available - Active TYLENOL (unknown strength) Not Available - Active Procedures [...] Providers Copied on Encounter [facility], [address], [place], [place], [id number], [place] tel:[phone] LISA - Ariana No Information [address] [facility], [address] [place] [address], [address], [id number], [place]. tel:[phone] Office/Outpa tient Visit,Est, Mod Z [facility], [address] [place] [address], [address], [place] tel:[phone] TIMOTHY - Ariana ObesityLumbag oOVERWEIGHT [address] [facility], [address] [place] [address], [id number], [place]. tel:[phone] Office/Outpa tient Visit,Est, Mod Z [facility], [address] [place], [place] [address], [address], [place] tel:[phone] LISA - Ariana Back Pain (chief complaint) OVERWEIGHT [address] [facility], [address], [place], [place], [id number], [place]. tel:[phone] Office/Outpa tient Visit,Est, Mod Z [facility], [address], [place], [address], [place] tel:[phone] [employer] [facility] [employer] No Information Koffi- 8-[address] [facility], [address], [place], [place], [id number], [place]. tel:[phone] Office/Outpa tient Visit,Est, Mod Z [facility], [address], [place], [address], [place] tel:[phone] [employer] No Information Apr- [address] [facility], [address], [place], [place], [id number], [place]. tel:[phone] Office/Outpa tient Visit,Est, Mod Z [facility], [address], [place], [address], [place] tel:[phone] [employer] No Information Sep-2 3-201 3 Dom Aden. [facility], [address] , [place], [address], [place]. tel:[phone] [facility], [address], [place], [address], [place] tel:[phone] [employer] No Information Nov-2 [address] [facility], [address], [place], [place], [id number], [place]. tel:[phone] [facility], [address], [place], [address], [place] tel:[phone] [employer] No Information Nov-0 1-201 3 Dom Aden. [facility], [address], [place], [address], [place]. tel:[phone] [facility], [address], [place], [address], [place] tel:[phone] [facility] No Information Koffi- 9-[address] [facility], [address], [place], [place], [id number], [place]. tel:[phone] Office/Outpa tient Visit,Est, Mod Z [facility], [address], [place], [address], [place] tel:[phone] [employer] No Information Mar-0 8-[address] [facility], [address], [place], [place], [id number], [place]. tel:[phone] Office/Outpa tient Visit,Est, Mod Z [facility], [address] [facility], [place], [address], [place] tel:[phone] [employer] No Information Mar-2 6-[address] [facility], [address], [place], [place], [id number], [place]. tel:[phone] [facility], [address] [place], [place] [address], [place], [address], [place] tel:[phone] [employer] No Information Feb-1 1-[address] [facility], [address], [place], [place], [id number], [place]. tel:[phone] [facility], [address] [facility] [address], [place], [address], [place] tel:[phone] [facility] No Information Dec-2 2-[address] [facility], [address], [place], [place], [id number], [place]. tel:[phone] Office/Outpa tient Visit,Est, Low Z [facility], [address], [place], [address], [place] tel:[phone] [employer] No Information Nov-3 0-[address] [facility], [address], [place], [place], [address], [place]. tel:[phone] Office/Outpa tient Visit,Est, Mod Z [facility], [address], [place], [address], [place] tel:[phone] [employer] LUMBAGO Nov-0 [address] [facility], [address], [place], [place], [id number], [place]. tel:[phone] [facility], [address], [place], [address], [place] tel:[phone] [employer] No Information Aug-[address] [facility], [address], [place], [address], [place] tel:[phone] [facility] No Information Jul-2 2 No Information Office/Outpa tient Visit,Est, Mod Z [facility], [address], [place], [address], [place] tel:[phone] [employer] No Information 2 0 2 No Information Office/outpa tient visit,new, mod Z [facility], [address], [place], [address], [place] tel:[phone] [employer] No Information Jul-2 2 0 No Information Family History Family Member Type Diagnosis Age At Onset No Information Payers Payer name Insurance type Covered alliance party ID Authoriza tion(s) No Information Social History [...]
[2023-11-28] MEDS: HYDROCODONE/ACETAMIN 7.5-325 TABLET 1 TAB PO (09:03)
== END 2023-11-28 09:19 | disposition home or self-care (01) ==
PROVIDERS: Emergency Provider Family Medicine; PCP Family Medicine
DX: M25.561 Pain in right knee (principal); M25.552 Pain in left hip; Z89.511 Acquired absence of right leg below knee
CPT/HCPCS: 73502; 73562; 99283; 99284; A9270

== ENCOUNTER 2023-12-04 20:09 | Emergency (ER) | payer OTHER, SELFPAY ==
[2023-12-04 20:26] VITALS: BP 158/84; PULSE 96; RESP 16; TEMP 36.5; O2SAT 92; BMI 31.7
--- NOTE | 2023-12-04 20:36 | CRLHL7_ITS ---
For Patients: As a result of the Century Cures Act, medical imaging exams and procedure reports are released immediately into your electronic medical record. You may view this report before your referring provider. If you have questions, please contact your health care provider. INDICATION: Leg redness, swelling TECHNIQUE: Ultrasound venous duplex right lower extremity. Real-time stock-scale (B mode 2D), color Doppler, and spectral Doppler imaging were performed with compression and augmentation. COMPARISON: None FINDINGS: Deep veins: The right common femoral, femoral, popliteal, and visualized calf veins are fully compressible, demonstrate normal color flow, and normal response to mechanical augmentation. The Duplex Doppler waveforms are normal in appearance. Superficial veins: The visualized greater saphenous and superficial veins of the leg and calf are unremarkable. Soft tissue: Severe subcutaneous edema is present within the calf. Right inguinal lymph nodes are present measuring up to 1.6 cm. IMPRESSIONS: 1. No sonographic evidence of acute deep venous thrombosis seen. 2. Right inguinal lymph nodes are present measuring up to 1.6 cm. Clinical correlation is recommended to determine the etiology. Dictated by Rob Frazier MD @ 12/04/2023 10:23:08 PM Dictated by: Rob Frazier MD @ 12/04/2023 22:23:13 (Electronically Signed)
--- OUTSIDE RECORDS SUMMARY | 2023-12-04 21:37 | XMS_ITS | Patient Health Record ---
Author Organization [facility] Primary Address [address] [place] [id number] Care Team Providers Care Overcaster Name Role Phone Different, PCP Primary Care [...] W/U Status Risk SNOMED Code Notes Problem emt intermediate (current) use of opiate analgesic (Z79.891) Active confirmed High ris k drug monitoring status (262354772) Problem Chronic pain syndrome (G89.4) Active confirmed Chronic bandar n syndrome (699393619) Problem Postlaminectomy syndrome, not elsewhere classified (M96.1) Active confirmed Post-lami necto my syndrome (59647216) Problem Pain in left ankle and joints of left foot (M25.572) Active confirmed Arthralgia of the ankle and/or foot (989007918) Problem Obesity, unspecified (E66.9) Active confirmed Obesity (465721364) Problem Unspecified internal derangement of right knee (M23.91) Active confirmed Derangem ent of knee (92200446) Problem Fusion of spine, site unspecified (M43.20) Active confirmed Problem Acquired absence of unspecified foot (Z89.439) Active confirmed Amputated foot (023827292) PLAN OF TREATMENT No Information Insurance Providers Payer Name Payer Address Payer Phone Subscriber Number Group Number Insured Name Patient Relationship to Insured Coverage Start Date Coverage End Date [facility] [address] [address] [place] [address] [phone] [id number] Gianni Mijares Self - patient is the insured MEDICAL (GENERAL) HISTORY Medical History History ICD Code partial right foot amputation Chronic back pain Surgical History Surgery Date(Month/Year) Fusion of back 2012 partial right foot amputation 2007 Rt knee meniscal repair, arthroscopic Hospitalization History Reason Date(Month/Year) ED for Cellulitis 03/2022
--- OUTSIDE RECORDS SUMMARY | 2023-12-04 21:37 | XMS_ITS | Clinical Summary ---
Author Organization [facility] Address [place], [place] [address] Care Team Providers Care Carton Inspector Name Role Phone Clinic, No Pcp Or [...] agreement signed 05/24/2017 Overview: Douglas Ramírez MD [facility] Gracia Alexandre CMA....05/24/2017 7:20 AM [...] contract 03/29/2007 12/30/2007 Overview: signed 07/09/06 08-06-2006 [facility] no longer prescribing narcotic medications Pain in limb 08/29/2006 11/06/2023 Alcohol abuse, unspecified 06/13/2006 0 11/23/2020 Backache, unspecified 06/13/20062020 Overview: chronic Myocarditis, unspecified 06/13/2006 Overview: Remote HX of Encounters Date Type Department Care Team Description 11/28/2023 Orders Only [facility] Scanner 1 scan: (1-Ord) [facility], KNEE RT 3V, 11/28/2023 11/28/2023 Orders Only [facility] Scanner 1 scan: (1-Ord) [facility], 11/28/2023 11/06/2023 2:30 PM CDT Telemedicine [facility] [address] [place] [address] Saige Fairbanks DO Telehealth (No vitals ) 11/06/2023 Travel 11/05/2023 Travel 10/04/2023 Refill [facility] [address] [place] [phone] Lisseth Armando PA Refill Request (Fluticasone (50 Mcg Per Actuation) Nasal) from Last 3 Months Immunizations Name Administration Dates Next Due COVID-19 vaccine (Moderna 100mcg/0.5mL) PF, MDV 04/14/2021,07/07/2020,06/09/2020 COVID-19 vaccine (AxisMobile-Bio NTech 30mcg/0.3mL) 12YO+ BIVALENT PF, MDV 03/20/2022 [...] treatment at age 14; last treatment at [facility] 2015,2016*Sober since 03/16/16 PHQ-2 Answer Date [...] Description 12/11/2023 3:30 PM CDT Office Visit [facility] [address] [place] [id number] Jay Baron MD [address] [facility] [address] [place] [address] Health Maintenance Due Date Last Done Comments [...] history exists Medical Devices Implanted Type Area Occupational Ther Device Identifier Shelf Expiration Date Model / Serial / Lot [id number] Bone Dbx 5cc [id number] [[id number]][[id number]] Implanted:Qty: 1 on 10/30/2012 at Explanted:at (Quantity not on file) Spine Musculoskeletal Transplant 07/16/2014 [id number]# / [id number] / [id number] [id number] Canclls Crushed 30cc [[id number]][[id number]] Implanted:Qty: 1 on 10/30/2012 at Explanted:(Quant ity not on file) Spine Musculoskeletal Transplant 04/24/2016 [id number]# / [id number] / Set Screw 3dx - [id number] Implanted:Qty: 4 on 10/30/2012 by Audi Jain at N/A: Spine [employer] Spine/Ortho [id number]# / / Cnnctr Tsrh 3dx Sm - [id number] Implanted:Qty: 4 on 10/30/2012 by Audi Jain at N/A: Spine [employer] Spine/Ortho [id number]# / / Screw Thin Crest 6.5x45mm - [id number] Implanted:Qty: 4 on 10/30/2012 by Audi Jain at N/A: Spine [employer] Spine/Ortho [id number]# / / Keith 3.5cmx5.5mm Pre-Cut - [id number] Implanted:Qty: 2 on 10/30/2012 by Audi Jain at [employer] Spine/Ortho [id number]# / / Perimeter Lg 16mm 8 Deg Add-On - [id number] Implanted:Qty: 1 on 10/30/2012 at N/A: Spine [employer] Spine/Ortho [id number]# / / [id number] Bone Matrix 5cc Stimulan Kit Rapid Cure - [id number] Implanted:Qty: 1 on 03/21/2018 by Rashad Pearson MD at [facility] Right: Foot [employer] 12/11/2020 [id number]# / / 11/28-R37 6/377 Screw Foot 5x55mm Fixos Comp Headless - [id number] Implanted:Qty: 1 on 08/20/2018 by Rashad Pearson MD at [facility] Left: Foot [employer] [id number]# / / Description:Load [id number] Screw Foot 7x80mm Fixos Comp Headless Shrt - [id number] Implanted:Qty: 1 on 08/20/2018 by Rashad Pearson MD at [facility] Left: Foot [employer] [id number]# / / Description:Load [id number] Procedures Procedure Name Priority Date/Time Associated Diagnosis Comments SCAN-RADIOLOGY REPORT 11/28/2023 12:00 AM CDT SCAN-RADIOLOGY REPORT 11/28/2023 12:00 AM CDT OCCULT BLOOD IFOBT STOOL Routine 10/03/2021 2:21 PM CDT Screening for colorectal cancer from Last 3 Months or Most Recently Relevant to Health Maintenance Results * SCAN-RADIOLOGY REPORT (11/28/2023 12:00 AM CDT) Only the most recent of2 resultswithin the time period is included. Anatomical Region Laterality Modality Other Scanner OTHER * OCCULT BLOOD IFOBT STOOL (10/03/2021 2:21 PM CDT) STOOL BLOOD ,IFOBT Negative Negative 10/07/2021 11:41 AM CDT [facility] Stool STOOL SPECIMEN / Unknown Non-Blood / Unknown 10/03/2021 2:21 PM CDT 10/06/2021 2:21 PM CDT Demetrio Peña MD LABORATORY [facility] [address] [place] [address], from Last 3 Months or Most Recently [...] 9:27 AM 12/25/2017 7:50 PM Care Teams Carton Inspector Relationship Specialty Start Date End Date Clinic, No Pcp Or . PCP - General 11/07/22
--- OUTSIDE RECORDS SUMMARY | 2023-12-04 21:37 | XMS_ITS | Continuity of Care Document ---
Author Organization [facility] Address [address] [place] [address] [place] [address] Phone Care Team Providers Care Kettle Room Helper Name Role Phone Will Dante DAILY Unavailable [...] Diagnoses Date Provider Providers Copied on Encounter [facility], [address] [facility], [id number] , [place] tel:[phone] [facility] No Information 2 Will Dante. [address] [place], [place], [id number] , [place]. tel: [phone] [facility], [address] [place] [address] Te[place], [id number] , [place] tel: [phone] [facility] No Information Oct-2 2-201 8 Bennie Howell. [address] [facility] Frida [place], [id number] , [place]. tel: [phone] OFFICE/OUTPAT IENT VISIT, [facility], [address] [facility] [place], [place], [id number] , [place] tel: [phone] [facility] Leg Pain (chief complaint) Other intervertebral disc degeneration, lumbar regionSpondylolist hesis, lumbar regionNeuroma of amputation stump, right lower extremity Oct- 1 8 Pearson Napoleon. [facility], [address], [place], [address], [place]. tel: [phone] OFFICE/OUTPAT IENT VISIT, [facility], [address] [place] [address], [id number] , [place] tel: [phone] [facility] right foot pain (chief complaint) Spondylolisthesis, lumbar regionOther intervertebral disc degeneration, lumbar regionNeuroma of amputation stump, right lower extremity Sep-2 8-201 8 Pearson Napoleon. [facility], [address], [place], [address], [place]. tel: [phone] OFFICE/OUTPAT IENT VISIT, [facility], [address] [facility] [place], [place], [id number] , [place] tel: [phone] [facility] low back pain (chief complaint) bilateral foot pain (chief complaint) Other intervertebral disc degeneration, lumbar regionSpondylolist hesis, lumbar regionNeuroma of amputation stump, right lower extremity Sep-1 7-201 8 Pearson Napoleon. [facility], [address], [place], [address], [place]. tel: [phone] OFFICE/OUTPAT IENT VISIT, [facility], [address] [place] [address], [id number] , [place] tel: [phone] [facility] low back pain (chief complaint) Other intervertebral disc degeneration, lumbar regionSpondylolist hesis, lumbar regionNeuroma of amputation stump, right lower extremityPostlamin ectomy syndrome, not elsewhere classified Sep-0 8 Pearson Napoleon. [facility], [address], [place], [address], [place]. tel: [phone] OFFICE/OUTPAT IENT VISIT, EST [facility], [address] [place], [place], [id number] , [place] tel: [phone] [facility] low back pain (chief complaint) Postlaminectomy syndrome, not elsewhere classifiedOther intervertebral disc degeneration, lumbar regionSpondylolist hesis, lumbar regionNeuroma of amputation stump, right lower extremity Dec-2 8 Pearson Napoleon. [facility], [address], [place], [address], [place]. tel: [phone] OFFICE/OUTPAT IENT VISIT, EST [facility], [address] [place], [place], [id number] , [place] tel: [phone] [facility] low back pain (chief complaint) Postlaminectomy syndrome, not elsewhere classifiedNeuroma of amputation stump, right lower extremityOther intervertebral disc degeneration, lumbar regionSpondylolist hesis, lumbar region Dec-0 8 Pearson Napoleon. [facility], [address], [place], [address], [place]. tel: [phone] Specialist : Carlitos Ramos, [facility] [address], [place], [address] . tel:[phone] OFFICE/OUTPAT IENT VISIT, EST [facility], [address] [place], [place], [id number] , [place] tel: [phone] [facility] low back pain (chief complaint) Other intervertebral disc degeneration, lumbar regionSpondylolist hesis, lumbar regionPostlaminect charlie syndrome, not elsewhere classifiedNeuroma of amputation stump, right lower extremity Micheal Bello . [address] [place], [id number] , [place]. tel:[phone] OFFICE/OUTPAT IENT VISIT, [facility], [address] [place] [address] [place], [place], [id number] , [place] tel: [phone] [facility] low back pain (chief complaint) Other intervertebral disc degeneration, thoracolumbar regionOther intervertebral disc degeneration, lumbar regionSpondylolist hesis, lumbar regionLow back painLong term (current) use of opiate analgesic Micheal Bello . [address] [facility] Frida Day [place], [id number] , [place]. tel:[phone] Specialist : Carlitos Ramos, [facility] [address] [facility] [address], [place], [address] . tel:[phone] OFFICE/OUTPAT IENT VISIT, [facility], [address] [place] [address] Teodoro [place], [place], [id number] , [place] tel:[phone] [facility] low back pain (chief complaint) Other intervertebral disc degeneration, thoracolumbar regionOther intervertebral disc degeneration, lumbar regionSpondylolist hesis, lumbar regionLow back pain Micheal Bello . [address] [facility] Frida Day [place], [id number] , [place]. tel:[phone] Specialist : Carlitos Ramos, [facility] [address], [place], [address] . tel:[phone] OFFICE/OUTPAT IENT VISIT, [facility], [address] [place] [address] [place], [place], [id number] , [place] tel:[phone] [facility] low back pain (chief complaint) Postlaminectomy syndrome, not elsewhere classifiedLow back painLong term (current) use of opiate analgesicSpondylol isthesis, lumbar regionOther intervertebral disc degeneration, lumbar regionOther intervertebral disc degeneration, thoracolumbar region Micheal Bello . [address] [facility] Frida Day [place], [id number] , [place]. tel:[phone] Specialist : Carlitos Ramos, [facility] [address], [place], [address] . tel:[phone] OFFICE CONSULTATION [facility], [address] [facility] [place], [place], [id number] , [place] tel:[phone] [facility] [place] low back pain (chief complaint) Low back painPostlaminectom y syndrome, not elsewhere classifiedLong term (current) use of opiate analgesic Micheal Bello . [address] [place], [id number] , [place]. tel:[phone] Family History Family Member Type Diagnosis Age At Onset No Information Payers Payer name Insurance type Covered republican ID Authortalaa benjie(s) Oscar [facility] [id number] Social History Type Description Quantity Date Captured Comments Sex Male Smoking Status No Information Chief Complaint And Reason For Visit No Information Reason For Referral Reason For Referral No Information Plan Of Treatment Date Type Action Status Referral Ordered: MRI LUMBAR SPINE W/O DYE ordered Referral Ordered: Mikey Henriquez [place] (related to Low back pain) ordered Referral Referred To: [facility] [address] [place], [place] [id number] Ordered: Referrals: Referrals: Mikey [facility]. Evaluate and treat [facility]. Evaluate and treat ordered Referral Ordered: [facility] (related to Low back pain) ordered Referral Referred To: [facility] [address] [place], [place] [id number] Ordered: Referrals: [facility]. Location: [facility]. Evaluate and treat ordered Future Order: Lab Order COMPLIAN CE DRUG ANALYSIS, URINE, WITH MED REPORT ([id number]), Ordered on: Ordered Future Order: Lab Order COMPLIAN CE DRUG ANALYSIS, URINE, WITH MED REPORT ([id number]), Ordered on: Ordered History Of Present Illness Encounter Date Complaint History Of Presamparo nt Illness Leg Pain Severity level i [...] is relieved by pain/RX meds and rest. right foot pain (comments) Mr. Gonzalo sparrow [...] sx.No other red flags or neurologic symptoms. bilateral foot pain (comments) Bladimir Mijares is [...] flags or neurologic symptoms. low back pain bilateral foot pain Duration: ch ronic. Severity level is 3. It occurs constantly and is worsening. Location: right foot and lower back. There is no radiation. The pain is burning and sharp. The pain is aggravated by all activity. The pain is relieved by ice, massage, pain/RX meds, physical therapy, rest, stretching, changing positions, chiropractic, lying down and TENS. low back pain (comments) Mr. John ghosh [...] PT and changing positions. low back pain Severity level i s [...] only given 3 weeks worth (confirmed on STUDENT ACCOUNTS COORDINATOR). Says a home nurse has been distributing [...] or neurologic symptoms. low back pain (comments) Chronic LBP relatively [...] physical therapy and stretching. low back pain Severity level i s [...] pain. He has started physical therapy at [facility] for low back pain, once per week. [...] pain may be psychological since decreasing morphine. low back pain Severity level i s [...] followup after initial consult. He would like [facility] to take over medication management, was previously being managed by Dr. Grijalva. Medications provide 70% relief from pain; pt denies side effects. Continues to c/o low back pain and neuropathy of b/l feet. Sp L4-5 fusions; was told by Dr. Ramos at [facility] that his lumbar graft failed and was [...] No other concerns today. low back pain (comments) Gianni presents for initial consult regarding low back pain referred by Dr. Springer. His pain begain gradually in 1997 and continued to work for three years after pain began and saw a doctor who told him to stop working. He is S/P L2-3 fusion completed in 2012 at [facility]. Also has had pain in both of his feet for 30 years now. His current medication regimen is as follows: Oxycodone 15mg MAX 7/day and MSER 15mg 3/day; MME is 312.5 mg/day. Has done chiropractor for 3 years, acupuncture for 2 years, PT at [facility] in 2004 and [facility] in 2010, 2012 and 2014 (somewhat helfpul), ES[facility] done at [facility] pre and post surgery; does [...]
--- OUTSIDE RECORDS SUMMARY | 2023-12-04 21:38 | XMS_ITS | Continuity of Care Document ---
Author Organization [facility] Address [address] [place] [address] Phone Care Team Providers Care Net Finisher Name Role Phone Trenton Ware MD Unavailable [...] Copied on Encounter [facility], [address], [place], [place], [id number], [place] tel:[phone] [facility] - Ariana No Information 8 Jeanie Chowdhury. [facility], [address] [place] [address], [address], [id number], [place]. tel:[phone] Office/Outpa tient Visit,Est, Mod Z [facility], [address] [place] [address], [address], [place] tel:[phone] TIMOTHY - Ariana ObesityLumbag oOVERWEIGHT 4 Mehbod Amir. [facility], [address] [place] [address], [id number], [place]. tel:[phone] Office/Outpa tient Visit,Est, Mod Z [facility], [address] [place], [place] [address], [address], [place] tel:[phone] [facility] - Ariana Back Pain (chief complaint) OVERWEIGHT 4 Mehbod Amir. [facility], [address], [place], [place], [id number], [place]. tel:[phone] Office/Outpa tient Visit,Est, Mod Z [facility], [address], [place], [address], [place] tel:[phone] [facility] [employer] No Information Koffi- 8-201 4 Mehbod Amir. [facility], [address], [place], [place], [address], [place]. tel:[phone] Office/Outpa tient Visit,Est, Mod Z [facility], [address], [place], [address], [place] tel:[phone] [facility] No Information Apr- 6201 3 Mehbod Amir. [facility], [address], [place], [place], [id number], [place]. tel:[phone] Office/Outpa tient Visit,Est, Mod Z [facility], [address], [place], [address], [place] tel:[phone] [facility] No Information Sep-2 3-201 3 Dom Aden. [facility], [address] , [place], [address], [place]. tel:[phone] Z [facility], [address], [place], [address], [place] tel:[phone] [facility] No Information Nov-2 9201 3 Mehbod Amir. [facility], [address], [place], [place], [address], [place]. tel:[phone] Z [facility], [address], [place], [address], [place] tel:[phone] [facility] No Information Nov-0 1-201 3 Dom Aden. [facility], [address], [place], [address], [place]. tel:[phone] Z [facility], [address], [place], [address], [place] tel:[phone] [facility] No Information Koffi- 9-201 3 Mehbod Amir. [facility], [address], [place], [place], [address], [place]. tel:[phone] Office/Outpa tient Visit,Est, Mod Z [facility], [address], [place], [address], [place] tel:[phone] [facility] No Information Mar-0 8-201 3 Mehbod Amir. [facility], [address] [facility] [facility] [address], [place], [place], [id number], [place]. tel:[phone] Office/Outpa tient Visit,Est, Mod Z [facility], [address] [facility], [place], [address], [place] tel:[phone] [facility] No Information Mar-2 6-201 2 Mehbod Amir. [facility], [address], [place], [place], [id number], [place]. tel:[phone] Z [facility], [address] [place], [place] [address] [address], [place], [address], [place] tel:[phone] [facility] No Information Feb-1 1-201 2 Mehbod Amir. [facility], [address], [place], [place], [id number], [place]. tel:[phone] Z [facility], [address], [place], [address], [place] tel:[phone] [facility] No Information Dec-2 2-201 2 Mehbod Amir. [facility], [address], [place], [place], [id number], [place]. tel:[phone] Office/Outpa tient Visit,Est, Low Z [facility], [address], [place], [address], [place] tel:[phone] [facility] No Information Nov-3 0-201 2 Mehbod Amir. [facility], [address], [place], [place], [id number], [place]. tel:[phone] Office/Outpa tient Visit,Est, Mod Z [facility], [address], [place], [address], [place] tel:[phone] [facility] LUMBAGO Nov-0 201 2 Mehbod Amir. [facility], [address], [place], [place], [id number], [place]. tel:[phone] Z [facility], [address], [place], [address], [place] tel:[phone] [facility] No Information Aug-0 2 No Information Z [facility], [address], [place], [address], [place] tel:[phone] [facility] No Information Jul-2 2 No Information Office/Outpa tient Visit,Est, Mod Z [facility], [address], [place], [address], [place] tel:[phone] [facility] No Information 2 0 2 No Information Office/outpa tient visit,new, mod Z [facility], [address], [place], [address], [place] tel:[phone] [facility] No Information Jul-2 2 0 No Information Family History Family Member Type Diagnosis Age At Onset No Information Payers Payer name Insurance type Covered constitution party ID Authoriza tion(s) No Information Social [...]
--- OUTSIDE RECORDS SUMMARY | 2023-12-04 21:38 | XMS_ITS | Continuity of Care Document ---
Author Organization [facility] Address [address] [facility] [address] [place] [address] Phone Care Team Providers Care Pharmacist Aide Name Role Phone Venessa Short PA-C Unavailable Unavailable Allergies, Adverse Reactions, Alerts Substance [...] Diagnoses Date Provider Providers Copied on Encounter JOSE ANTONIO Navarro, [address], [place], [place], [address], [place] tel:[phone] Home Visit No Information 4 Deja Clifford. [address], [place], [place], [address], [place]. tel:[phone] Est Pt Eval Telehealth [facility], [address], [place], [place], [address], [place] tel:[phone] [facility] lower back pain (chief complaint) Body mass index (BMI) 32.0-32.9, adultOther spondylosis with radiculopathy , lumbar regionPostlam inectomy syndrome, not elsewhere classified 4 Moualee Sharon. [address], [address], [place], [address], [place]. tel:[phone] Referring Provider: Ricco Pedraza, [facility] [address] [facility], [place], [address]. tel:[phone] Est Pt Eval Telehealth [facility], [address], [place], [place], [address], [place] tel:[phone] [facility] lower back pain (chief complaint) Pain in unspecified ankle and joints of unspecified footOther spondylosis with radiculopathy , lumbar regionPostlam inectomy syndrome, not elsewhere classifiedBod y mass index (BMI) 32.0-32.9, adult 4 Moualee Sharon. [address], [address], [place], [address], [place]. tel:[phone] Referring Provider: Ricco Pedraza, [address] [place] [address] [facility], [place], [address]. tel:[phone] HOME INFUSION/VIS IT, 2 HRS [facility], [address] [facility] [address], [place], [address], [place] tel:[phone] Home Visit lower back pain (chief complaint) Postlaminecto my syndrome, not elsewhere classified Koffi0 4 RN RN. [address] , [facility] [address], [place], [address], [place]. tel:[phone] Referring Provider: Ricco Pedraza, [address] [place] [address] [facility], [place], [address]. tel:[phone] [facility], [address] [facility] [address], [place], [address], [place] tel:[phone] Home Visit No Information 4 RN RN. [address] , [facility] [address], [place], [address], [place]. tel:[phone] Referring Provider: Ricco Pedraza, [address] [place] [address] [facility], [place], [address]. tel:[phone] [facility], [address] [facility] [address], [place], [address], [place] tel:[phone] Home Visit No Information 4 RN RN. [address] , [facility] [address], [place], [address], [place]. tel:[phone] Referring Provider: Ricco Pedraza, [address] [place] [address] [facility], [place], [address]. tel:[phone] [facility], [address] [facility] [address], [place], [address], [place] tel:[phone] Home Visit lower back pain (chief complaint) Postlaminecto my syndrome, not elsewhere classifiedChr onic pain syndromePostl aminectomy syndrome, not elsewhere classified 4 RN RN. [address] [facility], [address], [place], [address], [place]. tel:[phone] Referring Provider: Ricco Pedraza, [address] [place], [place] [address], [place], [address]. tel:[phone] ELLIOTT Navarro, [address] [facility] [address], [place], [address], [place] tel:[phone] Home Visit No Information 4 RN RN. [address] [facility] [address], [place], [address], [place]. tel:[phone] Referring Provider: Ricco Pedraza, [address] [place] [address] [facility], [place], [address]. tel:[phone] ELLIOTT Navarro, [address] [facility] [address], [place], [address], [place] tel:[phone] Home Visit No Information 4 RN RN. [address] [facility] [address], [place], [address], [place]. tel:[phone] Referring Provider: Ricco Pedraza, [address] [place] [address] [facility], [place], [address]. tel:[phone] JOSE ANTONIO NavarroC, [address] [facility] [address], [place], [address], [place] tel:[phone] Home Visit Pump Visit (chief complaint) Postlaminecto my syndrome, not elsewhere classifiedOth er chronic painPostlamin ectomy syndrome, not elsewhere classified 4 RN RN. [address] , [address], [place], [address], [place]. tel:[phone] Referring Provider: Ricco Pedraza, [address] [place] [address] [facility], [place], [address]. tel:[phone] [facility], [address] [facility] [address], [place], [address], [place] tel:[phone] Home Visit No Information 4 RN RN. [address] , [address], [place], [address], [place]. tel:[phone] Referring Provider: Ricco Pedraza, [address] [place] [address] [facility], [place], [address]. tel:[phone] [facility], [address] [facility] [address], [place], [address], [place] tel:[phone] Home Visit No Information 4 RN RN. [address] , [facility] [address], [place], [address], [place]. tel:[phone] Referring Provider: Ricco Pedraza, [address] [place] [address] [facility], [place], [address]. tel:[phone] [facility], [address] [facility] [address], [place], [address], [place] tel:[phone] Home Visit Pump Visit (chief complaint) Postlaminecto my syndrome, not elsewhere classifiedChr onic pain syndromePostl aminectomy syndrome, not elsewhere classified 3 RN RN. [address] , [address], [place], [address], [place]. tel:[phone] Referring Provider: Ricco Pedraza, [address] [place] [address] [facility], [place], [address]. tel:[phone] [facility], [address], [place], [place], [address], [place] tel:[phone] Home Visit No Information 3 RN RN. [address], [address], [place], [place], [address], [place]. tel:[phone] Referring Provider: Ricco Pedraza, [facility] [address] [facility], [place], [address]. tel:[phone] [facility], [address], [place], [place], [address], [place] tel:[phone] Home Visit Pump Visit (chief complaint) Postlaminecto my syndrome, not elsewhere classifiedPos tlaminectomy syndrome, not elsewhere classified 3 RN RN. [address], [address], [place], [address], [place]. tel:[phone] Referring Provider: Ricco Pedraza, [facility] [address] [facility], [place], [address]. tel:[phone] [facility], [address], [place], [place], [address], [place] tel:[phone] Home Visit No Information 3 RN RN. [address], [address], [place], [address], [place]. tel:[phone] Referring Provider: Ricco Pedraza, [facility] [address] [facility], [place], [address]. tel:[phone] [facility], [address], [place], [place], [address], [place] tel:[phone] Home Visit No Information 3 RN RN. [address] , [address], [place], [address], [place]. tel:[phone] Referring Provider: Ricco Pedraza, [address] [place] [address] [facility], [place], [address]. tel:[phone] [facility], [address] [facility] [address], [place], [address], [place] tel:[phone] Home Visit Pump Visit (chief complaint) Chronic pain syndromePostl aminectomy syndrome, not elsewhere classifiedChr onic pain syndrome Sep-2 3 RN RN. [address] , [address], [place], [address], [place]. tel:[phone] Referring Provider: Ricco Pedraza, [address] [place] [address] [facility], [place], [address]. tel:[phone] [facility], [address], [address], [place] tel:[phone] Home Visit No Information Jan- 3 RN RN. [address] [facility] [address], [place], [address], [place]. tel:[phone] Referring Provider: Ricco Pedraza, [address] [place] [address] [facility], [place], [address]. tel:[phone] [facility], [address] [facility] [address], [place], [address], [place] tel:[phone] Home Visit Pump Visit (chief complaint) Postlaminecto my syndrome, not elsewhere classifiedChr onic pain syndromePostl aminectomy syndrome, not elsewhere classified Dec- 3 RN RN. [address] , [address], [place], [address], [place]. tel:[phone] Referring Provider: Ricco Pedraza, [address] [place] [address] [facility], [place], [address]. tel:[phone] [facility], [address] [facility] [address], [place], [place], [address], [place] tel:[phone] Home Visit No Information 3 RN RN. [address] , [facility] [address], [place], [address], [place]. tel:[phone] Referring Provider: Ricco Pedraza, [address] [place] [address] [facility], [place], [address]. tel:[phone] [facility], [address] [facility] [address], [place], [address], [place] tel:[phone] Home Visit No Information 3 RN RN. [address] [facility] [address], [place], [address], [place]. tel:[phone] Referring Provider: Ricco Pedraza, [address] [place] [address] [facility], [place], [address]. tel:[phone] [facility], [address] [facility] [address], [place], [address], [place] tel:[phone] Home Visit back pain (chief complaint) Postlaminecto my syndrome, not elsewhere classifiedChr onic pain syndromePostl aminectomy syndrome, not elsewhere classified 3 RN RN. [address] , [address], [place], [address], [place]. tel:[phone] Referring Provider: Ricco Pedraza, [address] [place], [place] [address], [place], [address]. tel:[phone] [facility], [address] [facility] [address], [place], [place], [address], [place] tel:[phone] Home Visit No Information 3 RN RN. [address] , [address], [place], [place], [address], [place]. tel:[phone] Referring Provider: Ricco Pedraza, [address] [place] [address] [facility], [place], [address]. tel:[phone] [facility], [address] [facility] [address], [place], [address], [place] tel:[phone] Home Visit back pain (chief complaint) Postlaminecto my syndrome, not elsewhere classifiedChr onic pain syndromePostl aminectomy syndrome, not elsewhere classified 3 RN RN. [address] , [address], [place], [address], [place]. tel:[phone] Referring Provider: Ricco Pedraza, [address] [place] [address] [facility], [place], [address]. tel:[phone] [facility], [address] [facility] [address], [place], [address], [place] tel:[phone] Home Visit No Information 3 RN RN. [address] , [address], [place], [address], [place]. tel:[phone] Referring Provider: Ricco Pedraza, [address] [place] [address] [facility], [place], [address]. tel:[phone] [facility], [address], [place], [address], [place] tel:[phone] Home Visit Postlaminecto my syndrome, not elsewhere classifiedChr onic pain syndromePostl aminectomy syndrome, not elsewhere classified 3 RN RN. [address] , [address], [place], [address], [place]. tel:[phone] Referring Provider: Ricco Pedraza, [address] [place], [place] [address] [address] [facility], [place], [address]. tel:[phone] [facility], [address], [place], [address], [place] tel:[phone] Home Visit No Information 0 3 RN RN. [address], [address], [place], [address], [place]. tel:[phone] Referring Provider: Ricco Pedraza, [address] [place] [address] [facility], [place], [address]. tel:[phone] [facility], [address] [facility] [address], [place], [address], [place] tel:[phone] Home Visit Pump Visit (chief complaint) Postlaminecto my syndrome, not elsewhere classifiedChr onic pain syndromePostl aminectomy syndrome, not elsewhere classified Mar-2 3 RN RN. [address] , [address], [place], [address], [place]. tel:[phone] Referring Provider: Ricco Pedraza, [address] [place] [address] [facility], [place], [address]. tel:[phone] [facility], [address], [place], [address], [place] tel:[phone] Home Visit No Information 0 3 RN RN. [address], [address], [place], [address], [place]. tel:[phone] Referring Provider: Ricco Pedraza, [address] [place], [place] [address] [address] [facility], [place], [address]. tel:[phone] [facility], [address], [place], [address], [place] tel:[phone] Home Visit No Information 3 RN RN. [address] , [facility] [address], [place], [address], [place]. tel:[phone] Referring Provider: Ricco Pedraza, [address] [place] [address] [facility], [place], [address]. [phone] [facility], [address] [facility] [address], [place], [address], [place] tel:[phone] Home Visit back pain (chief complaint) left leg pain (chief complaint) Postlaminecto my syndrome, not elsewhere classifiedPos tlaminectomy syndrome, not elsewhere classified 3 RN RN. [address] , [facility] [address], [place], [address], [place]. tel:[phone] Referring Provider: Ricco Pedraza, [address] [place] [address] [facility], [place], [address]. tel:[phone] [facility], [address] [facility] [address], [place], [address], [place] tel:[phone] Home Visit No Information 3 RN RN. [address] , [facility] [address], [place], [address], [place]. tel:[phone] Referring Provider: Ricco Pedraza, [address] [place] [address] [facility], [place], [address]. tel:[phone] [facility], [address] [facility] [address], [place], [address], [place] tel:[phone] Home Visit No Information 2 RN RN. [address] , [facility] [address], [place], [address], [place]. tel:[phone] Referring Provider: Ricco Pedraza, [facility] [address] [facility], [place], [address]. tel:[phone] [facility], [address] [facility] [address], [place], [address], [place] tel:[phone] Home Visit back pain (chief complaint) joint pain (chief complaint) Postlaminecto my syndrome, not elsewhere classifiedPos tlaminectomy syndrome, not elsewhere classified 2 RN RN. [address], [address], [place], [address], [place]. tel:[phone] Referring Provider: Ricco Pedraza, [address] [place] [address] [address] [facility], [place], [address]. tel:[phone] [facility], [address], [address], [place] tel:[phone] Home Visit No Information 2 RN RN. [address] , [address], [place], [address], [place]. tel:[phone] Referring Provider: Ricco Pedraza, [address] [place] [address] [place], [place] [address], [place], [address]. tel:[phone] [facility], [address] [facility] [address], [place], [address], [place] tel:[phone] Home Visit back pain (chief complaint) Postlaminecto my syndrome, not elsewhere classifiedPos tlaminectomy syndrome, not elsewhere classified 2 RN RN. [address], [address], [place], [address], [place]. tel:[phone] Referring Provider: Ricco Pedraza, [address] [place] [address] [address] [facility], [place], [address]. tel:[phone] [facility], [address] [facility] [address], [place], [place], [address], [place] tel:[phone] Home Visit No Information 2 RN RN. [address] [facility], [address], [place], [address], [place]. tel:[phone] Referring Provider: Ricco Pedraza, [address] [place] [address] [address] [facility], [place], [address]. tel:[phone] [facility], [address] [facility] [address], [place], [place], [address], [place] tel:[phone] Home Visit Postlaminecto my syndrome, not elsewhere classifiedPai n in right footPain disorder with related psychological factorsPostla minectomy syndrome, not elsewhere classified Jan- 2 RN RN. [address], [address], [place]. tel:[phone] Referring Provider: Ricco Pedraza, [address] [place] [address] [address] [facility], [place], [address]. tel:[phone] Est Pt Eval 25 Min [facility], [address] [facility] [address], [place], [address], [place] tel:[phone] [facility] Body aches (chief complaint) Other spondylosis with radiculopathy , lumbar regionPain in unspecified ankle and joints of unspecified footPostlamin ectomy syndrome, not elsewhere classifiedBod y mass index (BMI) 32.0-32.9, adult Sep- 2 Ketola Washburn. [address] [facility], [address], [address], [place]. tel:[phone] Referring Provider: Ricco Pedraza, [facility] [address] [facility], [place], [address]. tel:[phone] [facility], [address], [place], [place], [address], [place] tel:[phone] Home Visit No Information 2 ASHLEY RAMIREZ. [address], [address], [place], [address], [place]. tel:[phone] Referring Provider: Ricco Pedraza, [facility] [address] [facility], [place], [address]. tel:[phone] [facility], [address], [place], [place], [address], [place] tel:[phone] [facility] No Information 2 Anaid Sandovalmarlon. [address], [address], [place], [address], [place]. tel:[phone] Referring Provider: Ricco Pedraza, [facility] [address] [place] [address] [facility], [place], [address]. tel:[phone] [facility], [address], [place], [place], [address], [place] tel:[phone] Home Visit back pain (chief complaint) Postlaminecto my syndrome, not elsewhere classifiedPos tlaminectomy syndrome, not elsewhere classified 2 ASHLEY RAMIREZ. [address] , [address], [place], [address], [place]. tel:[phone] Referring Provider: Ricco Pedraza, [facility] [address] [facility], [place], [address]. tel:[phone] [facility], [address], [place], [address], [place] tel:[phone] Home Visit No Information 2 ASHLEY RAMIREZ. [address] , [address], [place], [address], [place]. tel:[phone] Referring Provider: Ricco Pedraza, [address] [place] [address] [facility], [place], [address]. tel:[phone] Est Pt Eval 25 Min [facility], [address] [facility] [address], [place], [place], [address], [place] tel:[phone] [facility] back pain (chief complaint) Body mass index (BMI) 31.0-31.9, adultOther spondylosis with radiculopathy , lumbar regionPain in unspecified ankle and joints of unspecified footPostlamin ectomy syndrome, not elsewhere classified 2 She Lorimarlon. [address] , [address], [place], [address], [place]. tel:[phone] Referring Provider: Ricco Pedraza, [facility] [address] [facility], [place], [address]. tel:[phone] [facility], [address] [facility], [place], [place], [address], [place] tel:[phone] Home Visit back pain (chief complaint) Postlaminecto my syndrome, not elsewhere classifiedChr onic pain syndromePostl aminectomy syndrome, not elsewhere classified 2 ASHLEY RAMIREZ. [address], [place], [place], [address], [place]. tel:[phone] Referring Provider: Ricco Pedraza, [facility] [address] [facility], [place], [address]. tel:[phone] [facility], [address] [facility], [place], [place], [address], [place] tel:[phone] Home Visit No Information 2 ASHLEY RAMIREZ. [address] , [address], [place], [place], [address], [place]. tel:[phone] Referring Provider: Ricco Pedraza, [facility] [address] [facility], [place], [address]. tel:[phone] ELLIOTT Navarro, [address] [facility] [address], [place], [address], [place] tel:[phone] Home Visit back pain (chief complaint) Postlaminecto my syndrome, not elsewhere classifiedChr onic pain syndromePostl aminectomy syndrome, not elsewhere classified 2 RN RN. [address] , [address], [place], [address], [place]. tel:[phone] Referring Provider: Ricco Pedraza, [address] [place] [address] [address] [facility], [place], [address]. tel:[phone] JOSE ANTONIO [facility], [address] [facility] [address], [place], [address], [place] tel:[phone] Home Visit No Information 2 RN RN. [address] , [address], [place], [address], [place]. tel:[phone] Referring Provider: Ricco Pedraza, [address] [place] [address] [address] [facility], [place], [address]. tel:[phone] JOSE ANTONIO [facility], [address], [place], [address], [place] tel:[phone] Home Visit back pain (chief complaint) Postlaminecto my syndrome, not elsewhere classifiedChr onic pain syndromePostl aminectomy syndrome, not elsewhere classified 2 RN RN. [address], [address], [place], [address], [place]. tel:[phone] Referring Provider: Ricco Pedraza, [address] [place] [address] [facility], [place], [address]. tel:[phone] [facility], [address], [place], [place], [address], [place] tel:[phone] Home Visit No Information 2 RN RN. [address], [address], [place], [address], [place]. tel:[phone] Referring Provider: Ricco Pedraza, [address] [place] [address] [address] [facility], [place], [address]. tel:[phone] [facility], [address] [facility] [address], [place], [address], [place] tel:[phone] Home Visit back pain (chief complaint) bilateral leg pain (chief complaint) Postlaminecto my syndrome, not elsewhere classifiedChr onic pain syndromePostl aminectomy syndrome, not elsewhere classified Apr0 2 RN RN. [address] , [address], [place], [address], [place]. tel:[phone] Referring Provider: Ricco Pedraza, [address] [place] [address] [facility], [place], [address]. [phone] [facility], [address] [facility] [address], [place], [address], [place] tel:[phone] Home Visit No Information 2 RN RN. [address] , [address], [place], [address], [place]. tel:[phone] Referring Provider: Ricco Pedraza, [address] [place] [address] [facility], [place], [address]. tel:[phone] [facility], [address] [facility], [place], [place], [address], [place] tel:[phone] Home Visit back pain (chief complaint) left leg pain (chief complaint) Postlaminecto my syndrome, not elsewhere classifiedPos tlaminectomy syndrome, not elsewhere classified 2 RN RN. [address] [address], [place], [address], [place]. tel:[phone] Referring Provider: Ricco Pedraza, [address] [place], [place] [address], [place], [address]. tel:[phone] [facility], [address], [place], [address], [place] tel:[phone] Home Visit No Information 2 RN RN. [address] , [address], [place], [address], [place]. tel:[phone] Referring Provider: Ricco Pedraza, [address] [place], [place] [address], [place], [address]. tel:[phone] [facility], [address] [facility] [address], [place], [address], [place] tel:[phone] Home Visit back pain (chief complaint) Postlaminecto my syndrome, not elsewhere classifiedChr onic pain syndromePostl aminectomy syndrome, not elsewhere classified 2 RN RN. [address] , [address], [place], [address], [place]. tel:[phone] Referring Provider: Ricco Pedraza, [address] [place], [place] [address], [place], [address]. tel:[phone] [facility], [address] [facility] [address], [place], [address], [place] tel:[phone] Home Visit No Information 2 RN RN. [address] , [address], [place], [address], [place]. tel:[phone] Referring Provider: Ricco Pedraza, [address] [place] [address] [address] [facility], [place], [address]. tel:[phone] ELLIOTT Navarro, [address] [facility] [address], [place], [address], [place] tel:[phone] Home Visit back pain (chief complaint) left leg pain (chief complaint) Postlaminecto my syndrome, not elsewhere classifiedPos tlaminectomy syndrome, not elsewhere classified 2 RN RN. [address] , [address], [place], [address], [place]. tel:[phone] Referring Provider: Ricco Pderaza, [address] [place] [address] [facility], [place], [address]. tel:[phone] ELLIOTT Navarro, [address] [facility] [address], [place], [address], [place] tel:[phone] Home Visit No Information 2 RN RN. [address] , [facility] [address], [place], [address], [place]. tel:[phone] Referring Provider: Ricco Pedraza, [address] [place] [address] [facility], [place], [address]. tel:[phone] ELLIOTT Navarro, [address] [facility] [address], [place], [address], [place] tel:[phone] Home Visit back pain (chief complaint) Ankle Pain (chief complaint) Chronic pain syndromePostl aminectomy syndrome, not elsewhere classifiedChr onic pain syndrome 1 RN RN. [address] , [address], [place], [address], [place]. tel:[phone] Referring Provider: Ricco Pedraza, [address] [place] [address] [address] [facility], [place], [address]. tel:[phone] [facility], [address], [place], [address], [place] tel:[phone] Home Visit No Information 1 RN RN. [address] , [address], [place], [address], [place]. tel:[phone] Referring Provider: Ricco Pedraza, [address] [place] [address] [address] [facility], [place], [address]. [phone] [facility], [address] [facility] [address], [place], [address], [place] tel:[phone] Home Visit No Information 1 RN RN. [address] , [facility] [address], [place], [address], [place]. tel:[phone] Referring Provider: Ricco Pedraza, [address] [place] [address] [place] [address] [facility], [place], [address]. [phone] [facility], [address] [facility] [address], [place], [address], [place] tel:[phone] Home Visit back pain (chief complaint) Postlaminecto my syndrome, not elsewhere classifiedChr onic pain syndromePostl aminectomy syndrome, not elsewhere classified 1 RN RN. [address] , [address], [place], [address], [place]. tel:[phone] Referring Provider: Ricco Pedraza, [address] [place] [address] [facility], [place], [address]. tel:[phone] [facility], [address], [place], [address], tel:[phone] Home Visit No Information 1 RN RN. [address] , [address], [place], [address], [place]. tel:[phone] Referring Provider: Ricco Pedraza, [address] [place] [address] [facility], [place], [address]. tel:[phone] [facility], [address] [facility] [address], [place], [address], [place] tel:[phone] Home Visit Postlaminecto my syndrome, not elsewhere classifiedChr onic pain syndromePostl aminectomy syndrome, not elsewhere classified Sep-0 1 RN RN. [address] , [facility] [address], [place], [address], [place]. tel:[phone] Referring Provider: Ricco Pedraza, [address] [place], [place] [address], [place], [address]. tel:[phone] [facility], [address], [address], [place] tel:[phone] Home Visit No Information 1 RN RN. [address] , [facility] [address], [place], [address], [place]. tel:[phone] Referring Provider: Ricco Pedraza, [address] [place], [place] [address], [place], [address]. tel:[phone] [facility], [address] [facility] [address], [place], [address], [place] tel:[phone] Home Visit No Information 1 RN RN. [address] , [facility] [address], [place], [address], [place]. tel:[phone] Referring Provider: Ricco Pedraza, [address] [place] [address] [facility], [place], [address]. tel:[phone] [facility], [address] [facility] [address], [place], [place], [address], [place] tel:[phone] Home Visit Other intervertebra l disc displacement, lumbar regionPostlam inectomy syndrome, not elsewhere classifiedPos tlaminectomy syndrome, not elsewhere classified 1 RN RN. [address] [facility], [address], [place], [place], [address], [place]. tel:[phone] Referring Provider: Ricco Pedraza, [address] [facility] [address] [facility], [place], [address]. tel:[phone] [facility], [address] [facility], [address], [place], [address], [place] tel:[phone] [facility] back pain (chief complaint) Postlaminecto my syndrome, not elsewhere classifiedOth er spondylosis with radiculopathy , lumbar regionOther intervertebra l disc degeneration, lumbosacral regionOpioid dependence, uncomplicated Postlaminecto my syndrome, not elsewhere classifiedOth er spondylosis with radiculopathy , lumbar regionOther intervertebra l disc degeneration, lumbosacral regionOpioid dependence, uncomplicated 1 [facility]. [address] [facility] [address], [place], [place], [address], [place]. tel:[phone] Referring Provider: Bulmaro Unger, [address] [facility] [address], [place], [address]. tel:[phone] [facility], [facility], [address] [facility] [address], [place], [place], [address], [place] tel:[phone] [facility] No Information 1 Vernon Chamberlain. [address] [facility] [address], [place], [address], [place]. tel:[phone] Referring Provider: Bulmaro Unger, [address] [facility] [address], [place], [address]. tel:[phone] [facility] [place], [address], [address], [place], [address], [place] tel:[phone] [facility] No Information 1 Liss Chacko. [address], [place], [place], [address], [place]. [phone] Referring Provider: Ricco Pedraza, [address] [facility] [address] [facility] [address] [facility], [place], [address]. tel:[phone] [facility], [address], [place], [place], [address], [place] tel:[phone] [facility] No Information 1 Liss Chacko. [address], [place], [place], [address], [place]. tel:[phone] Referring Provider: Ricco Pedraza, [facility] [address] [facility], [place], [address]. [phone] [facility], [address], [place], [place], [address], [place] tel:[phone] Home Visit No Information 1 RN ASHLEY. [address], [address], [place], [address], [place]. tel:[phone] Referring Provider: Ricco Pedraza, [address] [facility], [place], [address]. tel:[phone] [facility], [address], [place], [place], [address], [place] tel:[phone] Home Visit Postlaminecto my syndrome, not elsewhere classifiedPos tlaminectomy syndrome, not elsewhere classified 1 RN ASHLEY. [address], [address], [place], [address], [place]. tel:[phone] Referring Provider: Ricco Pedraza, [address] [place] [address] [address] [facility], [place], [address]. tel:[phone] [facility], [address], [place], [place], [address], [place] tel:[phone] Home Visit No Information 1 RN RN. [address], [address], [place], [address], [place]. tel:[phone] Referring Provider: Ricco Pedraza, [address] [place] [address] [place], [place] [address], [place], [address]. tel:[phone] [facility], [address] [facility] [address], [place], [address], [place] tel:[phone] Home Visit Other intervertebra l disc degeneration, lumbar regionOther intervertebra l disc degeneration, lumbar region 1 RN RN. [address], [address], [place], [address], [place]. tel:[phone] Referring Provider: Ricco Pedraza, [address] [place] [address] [address] [facility], [place], [address]. tel:[phone] [facility], [address], [place], [place], [address], [place] tel:[phone] Home Visit No Information 1 RN RN. [address], [address], [place], [address], [place]. tel:[phone] Referring Provider: Ricco Pedraza, [address] [place] [address] [address] [facility], [place], [address]. tel:[phone] [facility], [address], [facility] [place], [address], [place] tel:[phone] [facility] No Information 1 Liss Barboza. [address], [address], [place]. tel:[phone] Referring Provider: Ricco Pedraza, [address] [place] [address] [facility], [place], [address]. tel:[phone] [facility], [address] [facility] [address], [place], [address], [place] tel:[phone] [facility] back pain (chief complaint) Low back painPain in left footPain in right footPain in leg 1 Liss Barboza. [address], [address], [place]. tel:[phone] Referring Provider: Rcico Pedraza, [address] [place] [address] [facility], [place], [address]. tel:[phone] [facility], [address], [address], [place] tel:[phone] Home Visit No Information 1 ASHLEY RAMIREZ. [address], [address], [place]. tel:[phone] Referring Provider: Ricco Pedraza, [address] [place] [address] [facility], [place], [address]. tel:[phone] [facility], [address], [address], [place] tel:[phone] Home Visit back pain (chief complaint) Postlaminecto my syndrome, not elsewhere classifiedPos tlaminectomy syndrome, not elsewhere classified Jul- 1 ASHLEY RAMIREZ. [address] [facility], [address], [place], [address], [place]. tel:[phone] Referring Provider: Ricco Pedraza, [address] [place] [address] [address] [facility], [place], [address]. tel:[phone] [facility], [address] [facility] [address], [place], [address], [place] tel:[phone] Home Visit No Information 1 RN RN. [address] [facility], [address], [place], [address], [place]. tel:[phone] Referring Provider: Ricco Pedraza, [address] [place] [address] 301 [facility], [place], [address]. tel:[phone] Est Pt Eval 25 Min Telehealth [facility], [address] [facility] 220[place], [place], [address], [place] tel:[phone] Home Visit Postlaminecto my syndrome, not elsewhere classifiedOth er intervertebra l disc degeneration, lumbosacral regionPostlam inectomy syndrome, not elsewhere classified 1 RN RN. [address] [facility], [address], [place], [place], [address], [place]. tel:[phone] Referring Provider: Ricco Pedraza, [address] [place] [address] 301 [facility], [place], [address]. [phone] [facility], [address] [facility] [address], [place], [address], [place] tel:[phone] Home Visit No Information 1 RN RN. [address] [facility], [address], [place], [address], [place]. tel:[phone] Referring Provider: Ricco Pedraza, [address] [place] [address] [address] [facility], [place], [address]. [phone] [facility], [address] [facility] [address], [place], [place], [address], [place] tel:[phone] Home Visit No Information 1 RN RN. [address] , [address], [place], [place], [address], [place]. [phone] Referring Provider: Ricco Pedraza, [address] [place] [address] [address] [facility], [place], [address]. tel:[phone] [facility], [address] [facility] [address], [place], [place], [address], [place] tel:[phone] Home Visit Chronic pain syndromePostl aminectomy syndrome, not elsewhere classifiedPos tlaminectomy syndrome, not elsewhere classified 0 RN RN. [address] [facility], [facility] [address], [place], [address], [place]. tel:[phone] Referring Provider: Ricco Pedraza, [address] [place] [address] [address] [facility], [place], [address]. tel:[phone] [facility], [address] [facility], [place], [place], [address], [place] tel:[phone] Home Visit No Information 0 RN RN. [address] , [address], [place], [address], [place]. tel:[phone] Referring Provider: Ricco Pedraza, [facility] 301 [facility], [place], [address]. [phone] [facility], [address] [facility], [place], [place], [address], [place] tel:[phone] Home Visit Postlaminecto my syndrome, not elsewhere classifiedChr onic pain syndromePain in right ankle and joints of right footPain in left ankle and joints of left footPostlamin ectomy syndrome, not elsewhere classified 0 RN RN. [address] [facility], [facility] [address], [place], [address], [place]. tel:[phone] Referring Provider: Ricco Pedraza, [address] [place] [address] [facility], [place], [address]. tel:[phone] [facility], [address] [facility] [address], [place], [place], [address], [place] tel:[phone] Home Visit No Information 0 RN RN. [address] [facility], [facility] [address], [place], [address], [place]. tel:[phone] Referring Provider: Ricco Pedraza, [address] [place] [address] [facility], [place], [address]. tel:[phone] Psychiatric Diagnostic Evaluation [facility], [address] [facility] [address], [place], [address], [place] tel:[phone] [facility] Pain disorder with related psychological factorsMajor depressive disorder, recurrent, moderate 0 César Felder. [address] [facility] [address], [place], [address], [place]. tel:[phone] Referring Provider: Ricco Pedraza, [address] [place] [address] [facility], [place], [address]. tel:[phone] [facility], [address] [facility] [address], [place], [address], [place] tel:[phone] Home Visit No Information 0 RN RN. [address] [facility] [address], [place], [address], [place]. tel:[phone] Referring Provider: Ricco Pedraza, [facility] [address] [facility], [place], [address]. tel:[phone] [facility], [address], [place], [place], [address], [place] tel:[phone] Home Visit Postlaminecto my syndrome, not elsewhere classifiedChr onic pain syndromePostl aminectomy syndrome, not elsewhere classified Sep- 0 RN RN. [address], [address], [place], [address], [place]. tel:[phone] Referring Provider: Ricco Pedraza, [address] [place], [place] [address] [address] [facility], [place], [address]. tel:[phone] [facility], [address], [place], [place], [address], [place] tel:[phone] Home Visit No Information Jan- 0 RN RN. [address], [address], [place], [place], [address], [place]. tel:[phone] Referring Provider: Ricco Pedraza, [address] [place] [address] [address] [facility], [place], [address]. tel:[phone] [facility], [address], [place], [place], [address], [place] tel:[phone] [facility] No Information 0 César Felder. [address], [address], [place], [place], [address], [place]. tel:[phone] Referring Provider: Ricco Pedraza, [facility] [address] [facility], [place], [address]. tel:[phone] [facility], [address], [place], [place], [address], [place] tel:[phone] Home Visit No Information 0 RN RN. [address] [facility], [address], [place], [place], [address], [place]. tel:[phone] Referring Provider: Ricco Pderaza, [address] [place] [address] [address] [facility], [place], [address]. tel:[phone] [facility], [address] [facility] [address], [place], [place], [address], [place] tel:[phone] Home Visit back pain (chief complaint) Other intervertebra l disc degeneration, lumbosacral regionOther intervertebra l disc displacement, lumbar regionOther intervertebra l disc degeneration, lumbosacral region 0 RN RN. [address] [facility], [address], [place], [address], [place]. tel:[phone] Referring Provider: Ricco Pedraza, [address] [place] [address] [facility], [place], [address]. tel:[phone] Est Pt Eval 15 Min Telehealth JOSE ANTONIO Navarro, [address] [facility] [address], [place], [place], [address], [place] tel:[phone] [facility] back pain (chief complaint) Pain in left anklePain in right ankleNeuralgi a and neuritis, unspecifiedLo w back pain 0 Jose Buchanan. [address] [facility] [address], [place], [address], [place]. tel:[phone] Referring Provider: Ricco Pedraza, [address] [place] [address] [address] [facility], [place], [address]. tel:[phone] JOSE ANTONIO [facility]C, [address] [facility] [address], [place], [place], [address], [place] tel:[phone] Home Visit No Information 0 RN RN. [address] [facility] [address], [place], [address], [place]. tel:[phone] Referring Provider: Ricco Pedraza, [address] [place] [address] [facility], [place], [address]. tel:[phone] Est Pt Eval 25 Min JOSE ANTONIO [facility]C, [address] [facility] [address], [place], [place], [address], [place] tel:[phone] [facility] back pain (chief complaint) Low back painFusion of spine, lumbar regionOther spondylosis, lumbar regionOther intervertebra l disc degeneration, lumbar regionOther intervertebra l disc displacement, lumbar regionPain in left anklePain in right ankle 0 Jose Buchanan. [address] [facility] 220, [place], [address], [place]. tel:[phone] Referring Provider: Ricco Pedraza, [address] [place] [address] [facility], [place], [address]. tel:[phone] JOSE ANTONIO [facility], [address] [facility] [address], [place], [address], [place] tel:[phone] Home Visit No Information 0 RN RN. [address] [facility] [address], [place], [address], [place]. tel:[phone] Referring Provider: Ricco Pedraza, [address] [place] [address] [facility], [place], [address]. tel:[phone] JOSE ANTONIO [facility], [address] [facility] [address], [place], [place], [address], [place] tel:[phone] Home Visit Postlaminecto my syndrome, not elsewhere classifiedOth er intervertebra l disc degeneration, lumbosacral regionLow back painOther intervertebra l disc displacement, lumbar regionPostlam inectomy syndrome, not elsewhere classified 0 RN RN. [address] [facility], [facility] [address], [place], [address], [place]. tel:[phone] Referring Provider: Ricco Pedraza, [address] [place] [address] [facility], [place], [address]. tel:[phone] [facility], [address] [facility] [address], [place], [address], [place] tel:[phone] Home Visit No Information 0 RN RN. [address] [facility] [address], [place], [address], [place]. tel:[phone] Referring Provider: Ricco Pedraza, [address] [place] [address] [facility], [place], [address]. tel:[phone] [facility], [address] [facility] [address], [place], [address], [place] tel:[phone] Home Visit back pain (chief complaint) Postlaminecto my syndrome, not elsewhere classifiedOth er intervertebra l disc degeneration, lumbosacral regionLow back painOther intervertebra l disc displacement, lumbar regionPostlam inectomy syndrome, not elsewhere classified Apr 0 RN RN. [address] [facility] [address], [place], [address], [place]. tel:[phone] Referring Provider: Ricco Pedraza, [address] [place] [address] 301 [facility], [place], [address]. tel:[phone] [facility], [address] [facility] [address], [place], [address], [place] tel:[phone] Home Visit No Information 0 RN RN. [address] [facility] [address], [place], [address], [place]. tel:[phone] Referring Provider: Ricco Pedraza, [facility] [address] [facility], [place], [address]. tel:[phone] [facility], [address], [place], [place], [address], [place] tel:[phone] Home Visit No Information 0 RN RN. [address], [address], [place], [place], [address], [place]. [phone] Referring Provider: Ricco Pedraza, [facility] [address] [facility], [place], [address]. [phone] [facility], [address], [place], [place], [address], [place] tel:[phone] Home Visit No Information 0 RN RN. [address], [address], [place], [place], [address], [place]. tel:[phone] Referring Provider: Ricco Pedraza, [address] [place] [address] [facility], [place], [address]. tel:[phone] [facility], [address], [place], [place], [address], [place] tel:[phone] Home Visit Postlaminecto my syndrome, not elsewhere classifiedOth er intervertebra l disc degeneration, lumbosacral regionLow back painOther intervertebra l disc displacement, lumbar regionPostlam inectomy syndrome, not elsewhere classified 0 Andrea Francsico. [address], [place], [address], [place]. tel:[phone] Referring Provider: Ricco Pedraza, [address] [place] [address] [address] [facility], [place], [address]. tel:[phone] [facility], [address], [place], [place], [address], [place] tel:[phone] Home Visit back pain (chief complaint) Postlaminecto my syndrome, not elsewhere classifiedPos tlaminectomy syndrome, not elsewhere classified 0 RN RN. [address], [address], [place], [address], [place]. tel:[phone] Referring Provider: Ricco Pedraza, [facility] [address] [facility], [place], [address]. tel:[phone] [facility], [address], [place], [place], [address], [place] tel:[phone] [facility] No Information 0 Burgess Peña. [address], [place], [address], [place]. tel:[phone] Referring Provider: Ricco Pedraza, [address] [facility] [address] [facility], [place], [address]. tel:[phone] [facility], [address], [place], [place], [address], [place] tel:[phone] Home Visit No Information 0 RN RN. [address], [address], [place], [address], [place]. tel:[phone] Referring Provider: Ricco Pedraza, [address] [facility] [address] [facility], [place], [address]. tel:[phone] [facility], [address], [place], [place], [address], [place] tel:[phone] Home Visit back pain (chief complaint) Postlaminecto my syndrome, not elsewhere classifiedPos tlaminectomy syndrome, not elsewhere classified [facility]. [address], [address], [place], [place], [address], [place]. tel:[phone] Referring Provider: Ricco Pedraza, [facility] [address] [facility], [place], [address]. tel:[phone] [facility], [address] [facility] [address], [place], [address], [place] tel:[phone] Home Visit No Information [facility]. [address], [facility] [address], [place], [address], [place]. tel:[phone] Referring Provider: Ricco Pedraza, [address] [place], [place] [address]e [address] [place] [address] [facility], [place], [address]. tel:[phone] [facility], [address] [facility] [address], [place], [address], [place] tel:[phone] Home Visit back pain (chief complaint) Postlaminecto my syndrome, not elsewhere classifiedLow back painOther intervertebra l disc degeneration, lumbosacral regionPain in right footPain in left footPostlamin ectomy syndrome, not elsewhere classified [facility]. [address] , [facility] [address], [place], [place], [address], [place]. tel:[phone] Referring Provider: Ricco Pedraza, [facility] [address] [facility], [place], [address]. tel:[phone] [facility], [address] [facility] [address], [place], [address], [place] tel:[phone] Home Visit No Information 9 [facility]. [address], [facility] [address], [place], [address], [place]. tel:[phone] Referring Provider: Ricco Pedraza, [facility] [address] [facility], [place], [address]. tel:[phone] Est Pt Eval 25 Min [facility], [address], [place], [place], [address], [place] tel:[phone] [facility] Ankle Pain (chief complaint) Postlaminecto my syndrome, not elsewhere classifiedSpo ndylosis w/o myelopathy or radiculopathy , lumbar regionPain disorder with related psychological factorsPostla minectomy syndrome, not elsewhere classified Feb- 9 Andrea Maryam. [address], [place], [address], [place]. tel:[phone] Referring Provider: Ricco Pedraza, [facility] [address] [facility], [place], [address]. tel:[phone] Est Pt Eval 25 Min [facility], [address], [place], [place], [address], [place] tel:[phone] [facility] back pain (chief complaint) Spondylosis w/o myelopathy or radiculopathy , lumbar regionPostlam inectomy syndrome, not elsewhere classifiedOth er intervertebra l disc degeneration, lumbosacral regionSpondyl osis w/o myelopathy or radiculopathy , lumbar region Sep- 9 Andrea Snyderh. [address], [place], [address], [place]. tel:[phone] Referring Provider: Ricco Pedraza, [facility] [address] [facility], [place], [address]. tel:[phone] Est Pt Eval 25 Min [facility], [address], [place], [place], [address], [place] tel:[phone] [facility] back pain (chief complaint) Other intervertebra l disc degeneration, lumbosacral regionSpondyl osis w/o myelopathy or radiculopathy , lumbar regionPain disorder with related psychological factorsSpondy losis w/o myelopathy or radiculopathy , lumbar region Sep-0 9 Andrea Francisco. [address] [facility] [address], [place], [address], [place]. tel:[phone] Referring Provider: Ricco Pedraza, [address] [facility] [address] [facility], [place], [address]. tel:[phone] Est Pt Eval 25 Min [facility], [facility], [address] [facility] [address], [place], [place], [address], [place] tel:[phone] [facility] back pain (chief complaint) Other spondylosis with radiculopathy , lumbar regionOther spondylosis with radiculopathy , lumbosacral regionPain disorder with related psychological factorsOther spondylosis with radiculopathy , lumbar region Dec- 9 Andrea Francisco. [address] [facility] [address], [place], [address], [place]. tel:[phone] Referring Provider: Ricco Pedraza, [address] [facility] [address] [facility], [place], [address]. tel:[phone] [facility], [facility], [address] [facility] [address], [place], [place], [address], [place] tel:[phone] [facility] No Information 9 Liss Chacko. [address], [place], [place], [address], [place]. tel:[phone] Referring Provider: Ricco Garrison, [address], [place], [address]. tel:[phone] [facility], [address] [facility], [address], [place], [address], [place] tel:[phone] [facility] back pain (chief complaint) Postlaminecto my syndrome, not elsewhere classifiedOth er spondylosis with radiculopathy , lumbar regionOther intervertebra l disc degeneration, lumbosacral regionOpioid dependence, uncomplicated [facility]. [address] [facility] [address], [place], [place], [address], [place]. tel:[phone] Referring Provider: Ricco Garrison, [address] [facility] [address], [place], [address]. tel:[phone] Est Pt Eval 15 Min [facility], [facility], [address] [facility] [address], [place], [place], [address], [place] tel:[phone] [facility] back pain (chief complaint) Pain in left footPain in right footOpioid use, unspecified, uncomplicated Pain disorder with related psychological factorsOther intervertebra l disc degeneration, lumbosacral regionPostlam inectomy syndrome, not elsewhere classifiedOpi oid dependence, uncomplicated Other spondylosis with radiculopathy , lumbar region Hoff Rougui. [address] [facility] [address], [place], [address], [place]. tel:[phone] Referring Provider: Ricco Pedraza, [address] [facility] [address] [facility], [place], [address]. tel:[phone] [facility], [facility], [address] [facility] [address], [place], [place], [address], [place] tel:[phone] [facility] back pain (chief complaint) Postlaminecto my syndrome, not elsewhere classified 9 RN RN. [address] [facility], [address], [place], [place], [address], [place]. tel:[phone] Referring Provider: Ricco Pedraza, [address] [facility] [address] [facility], [place], [address]. tel:[phone] [facility], [address] [facility] [address], [place], [place], [address], [place] tel:[phone] [facility] No Information 9 Liss Chacko. [address], [place], [place], [address], [place]. tel:[phone] Referring Provider: Ricco Garrison, [address], [place], [address]. tel:[phone] [facility], [address] [facility], [address], [place], [address], [place] tel:[phone] [facility] back pain (chief complaint) Postlaminecto my syndrome, not elsewhere classifiedOth er spondylosis with radiculopathy , lumbar regionOther intervertebra l disc degeneration, lumbosacral regionOpioid dependence, uncomplicated [facility]. [address] [facility] [address], [place], [place], [address], [place]. tel:[phone] Referring Provider: Ricco Garrison, [address], [place], [address]. tel:[phone] Est Pt Eval 15 Min [facility], [address] [facility] [address], [place], [place], [address], [place] tel:[phone] [facility] back pain (chief complaint) Low back painOpioid use, unspecified, uncomplicated Other intervertebra l disc displacement, lumbar regionSpondyl osis w/o myelopathy or radiculopathy , lumbar regionOther intervertebra l disc degeneration, lumbosacral regionPostlam inectomy syndrome, not elsewhere classifiedOth er spondylosis with radiculopathy , lumbosacral regionOther spondylosis with radiculopathy , lumbar region Hoff Rougui. [address] [facility] [address], [place], [address], [place]. tel:[phone] Referring Provider: Ricco Pedraza, [address] [facility] [address] [facility], [place], [address]. tel:[phone] Est Pt Eval 15 Min [facility], [address] [facility] [address], [place], [place], [address], [place] tel:[phone] [facility] back pain (chief complaint) Other intervertebra l disc degeneration, lumbosacral regionPostlam inectomy syndrome, not elsewhere classifiedPai n in left footLong term (current) use of opiate analgesic Alecia Tran. [address] [facility], [address], [place], [place], [address], [place]. tel:[phone] Referring Provider: Ricco Pedraza, [address] [facility] [address] [facility], [place], [address]. tel:[phone] Est Pt Eval 15 Min [facility], [address] [facility], [place], [place], [address], [place] tel:[phone] [facility] back pain (chief complaint) Low back painOther intervertebra l disc displacement, lumbar regionOther intervertebra l disc degeneration, lumbosacral regionLong term (current) use of opiate analgesicOpio id use, unspecified, uncomplicated Pain disorder with related psychological factors Hoff Rougui. [address] [facility] [address], [place], [address], [place]. tel:[phone] Referring Provider: Ricco Pedraza, [address] [facility] [address] [facility], [place], [address]. tel:[phone] [facility], [facility], [address] [facility] [address], [place], [place], [address], [place] tel:[phone] [facility] back pain (chief complaint) Pain in left footPostlamin ectomy syndrome, not elsewhere classifiedPai n in left foot Liss Chacko. [address], [place], [place], [address], [place]. tel:[phone] Referring Provider: Ricco Pedraza, [address] [facility] [address] [facility], [place], [address]. tel:[phone] [facility], [address] [facility], [address], [place], [address], [place] tel:[phone] [facility] back pain (chief complaint) Opioid dependence, uncomplicated Other spondylosis with radiculopathy , lumbar regionOther intervertebra l disc degeneration, lumbosacral regionPostlam inectomy syndrome, not elsewhere classifiedPos tlaminectomy syndrome, not elsewhere classifiedOth er intervertebra l disc degeneration, lumbosacral regionOther spondylosis with radiculopathy , lumbar regionOpioid dependence, uncomplicated Liss Chacko. [address], [place], [place], [address], [place]. tel:[phone] Referring Provider: Ricco Pedraza, [address] [facility] [address] [facility], [place], [address]. tel:[phone] [facility], [address] [facility] [address], [place], [place], [address], [place] tel:[phone] [facility] No Information Liss Chacko. [address], [place], [place], [address], [place]. tel:[phone] Referring Provider: Ricco Pedraza, [address] [facility] [address] [facility], [place], [address]. tel:[phone] JOSE ANTONIO Navarro, [address] [facility] [address], [place], [place], [address], [place] tel:[phone] [facility] Low back pain 9 Phong Jamila. [address] [facility] [address], [place], [address], [place]. tel:[phone] Referring Provider: Ricco Pedraza, [address] [facility] [address] [facility], [place], [address]. tel:[phone] Est Pt Eval 25 Min JOSE ANTONIO Navarro, [address] [facility] [address], [place], [place], [address], [place] tel:[phone] [facility] back pain (chief complaint) Postlaminecto my syndrome, not elsewhere classifiedOth er intervertebra l disc displacement, lumbar regionPain in left footPain in right footLow back painSpondylos is w/o myelopathy or radiculopathy , lumbar regionLong term (current) use of opiate analgesic 9 Deja Clifford. [address] [facility] [address], [place], [address], [place]. tel:[phone] Referring Provider: Ricco Pedraza, [address] [facility], [place], [address]. tel:[phone] Psychotherap y, 30 minutes with patient JOSE ANTONIO Navarro, [address] [facility], [place], [place], [address], [place] tel:[phone] [facility] Opioid use, unspecified, uncomplicated Pain disorder with related psychological factors 9 Lokesh Morrison. [address] [facility] [address], [place], [place], [address], [place]. tel:[phone] Referring Provider: Ricco Pedraza, [address] [facility] [address] [facility], [place], [address]. tel:[phone] [facility], [address] [facility], [address], [place], [address], [place] tel:[phone] [facility] back pain (chief complaint) Postlaminecto my syndrome, not elsewhere classifiedOth er spondylosis with radiculopathy , lumbar regionOther intervertebra l disc degeneration, lumbosacral regionPostlam inectomy syndrome, not elsewhere classifiedOth er spondylosis with radiculopathy , lumbar regionOther intervertebra l disc degeneration, lumbosacral region Liss Chacko. [address] [facility] [address], [place], [place], [address], [place]. tel:[phone] Referring Provider: Ricco Pedraza, [facility] [address] [facility], [place], [address]. tel:[phone] [facility], [address] [facility] [address], [place], [place], [address], [place] tel:[phone] [facility] No Information 9 Liss Chacko. [address] [facility] [address], [place], [place], [address], [place]. tel:[phone] Referring Provider: Ricco Pedraza, [facility] [address] [facility], [place], [address]. tel:[phone] Est Pt Eval 15 Min [facility], [facility], [address] [facility] [address], [place], [place], [address], [place] tel:[phone] [facility] back pain (chief complaint) Other intervertebra l disc degeneration, lumbosacral regionSpondyl osis w/o myelopathy or radiculopathy , lumbar regionOpioid use, unspecified, uncomplicated Pain in left footLow back painPostlamin ectomy syndrome, not elsewhere classifiedLon g term (current) use of opiate analgesic 9 joni Venessa. [address], [place], [place], [address], [place]. tel:[phone] Referring Provider: Ricco Pedraza, [address] [facility] [address] [facility], [place], [address]. tel:[phone] Psychotherap y, 30 minutes with patient JOSE ANTONIO NavarroC, [address], [place], [place], [address], [place] tel:[phone] [facility] Pain disorder with related psychological factors 9 Lisa Greenwood. [address], [place], [address], [place]. tel:[phone] Referring Provider: Ricco Pedraza, [address] [facility] [address] [facility], [place], [address]. tel:[phone] [facility], [address], [place], [place], [address], [place] tel:[phone] [facility] Low back painLow back pain Aug- Phong Jamila. [address], [place], [address], [place]. tel:[phone] Referring Provider: Ricco Pedraza, [address] [facility] [address] [facility], [place], [address]. tel:[phone] [facility], [address], [place], [place], [address], [place] tel:[phone] [facility] Low back painLow back pain 9 Phong Jamila. [address], [place], [address], [place]. tel:[phone] Referring Provider: Ricco Pedraza, [address] [facility] [address] [facility], [place], [address]. tel:[phone] Psychiatric Diagnostic Evaluation [facility], [address] [facility] [address], [place], [place], [address], [place] tel:[phone] [facility] Opioid use, unspecified, uncomplicated Pain disorder with related psychological factors 9 Lokesh Morrison. [address] [facility], [address], [place], [place], [address], [place]. tel:[phone] Referring Provider: Ricco Pedraza, [address] [address] [facility], [place], [address]. tel:[phone] New Pt Eval 60 Min [facility], [address] [facility] [address], [place], [place], [address], [place] tel:[phone] [facility] back pain (chief complaint) Low back painSpondylos is w/o myelopathy or radiculopathy , lumbar regionOther intervertebra l disc degeneration, lumbosacral regionOther intervertebra l disc displacement, lumbar regionPostlam inectomy syndrome, not elsewhere classifiedPai n in right footPain in left footOpioid use, unspecified, uncomplicated retirement (current) use of opiate analgesic 9 Liss Barboza. [address] [facility] [address], [place], [address], [place]. tel:[phone] Referring Provider: Ricco Pedraza, [address] [address] [facility], [place], [address]. tel:[phone] [facility], [address] [facility] [address], [place], [place], [address], [place] tel:[phone] [facility] No Information 9 Liss Barboza. [address], [place], [place], [address], [place]. tel:[phone] Referring Provider: Ricco Pedraza, [address] [facility] [address] [facility], [place], [address]. tel:[phone] [facility], [facility], [address], [place], [place], [address], [place] tel:[phone] Judith [facility] 7390 No Information 1 Kriss Ridley. [address] , [address], [place], [place], [address], [place]. tel:[phone] Referring Provider: REFERRAL SELFCLARIBEL. Est Pt Eval 25 Min [facility], [address], [place], [place], [address], [place] tel:[phone] [facility] No Information 1 No Information Referring Provider: REFERRAL SELFCLARIBEL. Offic/outpt E&m Estab Mod [facility], [facility], [address], [place], [place], [address], [place] tel:[phone] [facility] No Information 1 Tomshine Amelia. [address] , [address], [place], [place], [address], [place]. tel:[phone] Referring Provider: REFERRAL SELFCLARIBEL. [facility], [address], [place], [place], [address], [place] tel:[phone] [facility] No Information 1 Tomshine Amelia. [address] , [address], [place], [place], [address], [place]. tel:[phone] Referring Provider: REFERRAL CLARIBEL BOLTON. [facility], [address], [place], [place], [address], [place] tel:[phone] [facility] No Information 4-201 0 Tomshine Amelia. [address], [address], [place], [address], [place]. tel:[phone] Referring Provider: Fidencio Jon MD, [address] [place], [address]. tel:[phone] ELLIOTT Navarro, [address], [place], [address], [place] tel:[phone] [facility] No Information 0-201 0 Tomshine Amelia. [address], [address], [place], [address], [place]. tel:[phone] Referring Provider: Fidencio Jon MD, [address] [place], [address]. tel:[phone] [facility], [address], [place], [address], [place] tel:[phone] [facility] No Information 9 0 Tomshine Amelia. [address], [address], [place], [address], [place]. tel:[phone] Referring Provider: Fidencio Jon MD, [address] [place], [address]. tel:[phone] [facility], [address], [place], [address], [place] tel:[phone] Judith Navarro [facility] 7390 No Information 3-201 0 Kriss Ridley. [address], [address], [place], [address], [place]. tel:[phone] Referring Provider: Ilir Lind MD, [address] [facility] [place], [address]. tel:[phone] Offic/outpt E&m Estab Minor 10 [facility], [facility], [address], [place], [place], [address], [place] tel:[phone] [facility] No Information 0 Jose Cisneros. [address], [address], [place], [place], [address], [place]. [phone] Referring Provider: Ilir Lind MD, [address] [place], [address]. [phone] Est Pt Eval 25 Min [facility], [address], [place], [place], [address], [place] tel:[phone] [facility] No Information 0 No Information Referring Provider: Ilir Lind MD, [address] [place], [address]. [phone] Offic/outpt E&m Estab Minor 10 [facility], [address], [place], [place], [address], [place] tel:[phone] [facility] No Information 0 No Information Referring Provider: Fidencio Jon MD, [address] [facility], [place], [address]. [phone] [facility], [address], [place], [place], [address], [place] tel:[phone] [facility] No Information 9 No Information Referring Provider: Ilir Lind MD, [address] [place], [address]. [phone] [facility], [address], [place], [place], [address], [place] tel:[phone] [facility] No Information 0 9 No Information Referring Provider: Ilir Lind MD, [address] [facility] [address] [place], [address]. tel:[phone] Offic/outpt E&m Estab Minor 10 [facility], [address] [facility] [address], [place], [place], [address], tel:[phone] [facility] No Information 9 No Information Referring Provider: Ilir Lind MD, [address] [facility] [address] [place], [address]. tel:[phone] [facility], [address] [facility], [place], [address], tel:[phone] [facility] No Information No Information Referring Provider: Ilir Lind MD, [address] [facility] [address] [place], [place], [address]. tel:[phone] Offic Cons New/estab Mod-hi [facility] [address], [place], [place], [id number], tel:[phone] [facility] No Information Jose Cisneros. [address], [address], [place], [place], [id number], [place]. tel:[phone] Referring Provider: Ilir Lind MD, [address] [place], [address]. tel:[phone] Family History Family Member Type Diagnosis Age At Onset Father Problem (finding) aneurysm of thoracic ao rta Brother Problem (finding) rheumatoid arthritis Mother Problem (finding) rheumatoid arthritis Payers Payer name Insurance type Covered alliance party ID [employer]) [employer] Medicaid HMO [id number] Social History Type Description Quantity Date Captured [...] Information Instructions Date Instruction Additional Infor jacquie - Prescribed gabapen tin 300mg 3x/day*start with 1x/day and increase to 3x/day every 3-5 days as tolerated. -Continue Tizanidine 4mg up to 1-2 tabs 2x/day as needed -Follow up with home infusion as scheduled- Follow up with Sharon Ayala in 4 weeks, telehealth okay Related to Other spondylosis with radiculopathy, lumbar region Continue with curren t settings. 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 a mixer driver-Continue Tizanidine 4mg up to 1-2 tabs 2x/day [...] her know that she needs to inform [facility] on what medication is in his pump and that you're wanting to wean off pain pump and eventually switch to oral pain medication-Continue Flomax 0.4mg 1x/day, no refill today-Continue Oxycodone as prescribed through outside provider-[facility]-Follow up provider at [facility] as scheduled- Follow up with orthopedic doctor [...] with radiculopathy, lumbar region Same. Related to Other spondylosis with radiculopathy, lumbar region Follow up with pump nurses. Follow up with bilateral SI joint injection. Related to Postlaminectomy syndrome, not elsewhere classified Same. Related to Other intervertebral disc degeneration, lumbosacral region Same. Related to Opioi d dependence, uncomplicated -Order-Refill/ Presc ribe -Follow up with MARIANNA [...]
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
[2023-12-04] MEDS: cephALEXin 500 MG CAPSULE PO (22:52)
[2023-12-04 22:54] LABS: Lactate* 0.6 mmol/L (0.5-1.9)
[2023-12-04 22:59] LABS: Basophils Absolute Auto 0.04 K/uL (0.00-0.30); Basophils Percent Auto 0.4 % (0.0-3.0); Eosinophils Absolute Auto 0.29 K/uL (0.00-0.50); Hematocrit 42.1 % (37.0-53.0); Hemoglobin* 13.3 gm/dL (13.5-17.5); Immature Granulocytes Abs Auto 0.06 K/uL (0.00-0.30); Immature Granulocytes Pct Auto 0.6 %; Lymphocytes Absolute Auto 2.48 K/uL (0.90-2.90); Lymphocytes Percent Auto 25.6 % (20-44); Mean Corpuscular HGB Conc 32 gm/dL (32-36); Mean Corpuscular Hemoglobin 31 pg (26-34); Mean Corpuscular Volume 97 fL (80-100); Monocytes Percent Auto 6.5 % (0.0-11.0); Neutrophils Absolute Auto 6.18 K/uL (1.7-7.0); Neutrophils Percent Auto 63.9 % (42.0-72.0); Platelet Count* 262 K/uL (140-440); RDW Coefficient of Variation % 13.1 % (11.5-15.5); Red Blood Count 4.35 m/uL (4.30-5.90); White Blood Count* 9.68 K/uL (4.50-11.00)
[2023-12-04 23:02] LABS: Slide Review Reflex No
[2023-12-04 23:12] LABS: Albumin* 4.8 g/dL (3.3-5.0); Chloride* 99 mmol/L (96-114); Potassium* 4.4 mmol/L (3.6-5.1); Sodium* 137 mmol/L (135-149)
[2023-12-04 23:14] LABS: Creatinine* 0.8 mg/dL (0.5-1.5); Est. Creatinine Clearance* 110.97; Estimated Glomerular Filt Rate 101 ml/min
[2023-12-04 23:15] LABS: Alanine Aminotransferase* 30 U/L (4-50); Alkaline Phosphatase* 117 U/L (40-150); Anion Gap 8 mEq/L (7-15); Aspartate Amino Transferase* 32 U/L (12-35); Bilirubin Direct* 0.4 mg/dL (0.0-0.5); Bilirubin Total* 0.4 mg/dL (0.1-1.5); Blood Urea Nitrogen* 11 mg/dL (7-30); Carbon Dioxide* 30 mmol/L (20-32); Glucose* 110 mg/dL (60-115); Total Protein* 8.7 g/dL (6.0-8.3)
[2023-12-04 23:16] LABS: Calcium* 9.3 mg/dL (8.4-10.6)
[2023-12-04 23:18] LABS: C Reactive Protein* 2.7 mg/dL (0.5-1.0)
== END 2023-12-04 22:56 | disposition left against medical advice (07) ==
PROVIDERS: Emergency Provider Family Medicine; PCP Family Medicine
DX: L03.115 Cellulitis of right lower limb (principal)
CPT/HCPCS: 36415; 80048; 80076; 83605; 85025; 86140; 87040; 93971; 99283; 99284; A9270

== ENCOUNTER 2023-12-07 14:59 | Emergency (ER) | payer OTHER, SELFPAY ==
[2023-12-07 15:03] VITALS: BP 153/81; PULSE 111; RESP 18; TEMP 37.3; O2SAT 94; BMI 31.7
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
--- OUTSIDE RECORDS SUMMARY | 2023-12-07 15:53 | XMS_ITS | Continuity of Care Document ---
Author Organization [facility] Address [address] [place] [address] Phone Care Team Providers Care Manager Of Application Development Name Role Phone Trenton Ware MD Unavailable [...] Copied on Encounter [facility], [address], [place], [place], [id number], [place] tel:[phone] LISA - Ariana No Information 8 Jeanie Chowdhury. [facility], [address] [place] [address], [address], [id number], [place]. tel:[phone] Office/Outpa tient Visit,Est, Mod Z [facility] [place], [address] [place] [address], [address], [place] tel:[phone] TIMOTHY - Ariana ObesityLumbag oOVERWEIGHT 4 Mehbod Amir. [facility] [place], [address] [place] [address], [id number], [place]. tel:[phone] Office/Outpa tient Visit,Est, Mod Z [facility] [place], [address] [place], [place] [address], [address], [place] tel:[phone] LISA - Ariana Back Pain (chief complaint) OVERWEIGHT 4 Mehbod Amir. [facility], [address], [place], [place], [address], [place]. tel:[phone] Office/Outpa tient Visit,Est, Mod Z [facility], [address], [place], [address], [place] tel:[phone] [facility] [place] No Information Koffi- 8-201 4 Mehbod Amir. [facility], [address], [place], [place], [id number], [place]. tel:[phone] Office/Outpa tient Visit,Est, Mod Z [facility], [address], [place], [address], [place] tel:[phone] [employer] No Information Apr- 6201 3 Mehbod Amir. [facility], [address], [place], [place], [address], [place]. tel:[phone] Office/Outpa tient Visit,Est, Mod Z [facility], [address], [place], [address], [place] tel:[phone] [employer] No Information Sep-2 3-201 3 Dom Aden. [facility], [address] , [place], [address], [place]. tel:[phone] Z [facility], [address], [place], [address], [place] tel:[phone] [employer] No Information Nov-2 9201 3 Mehbod Amir. [facility], [address], [place], [place], [address], [place]. tel:[phone] Z [facility], [address], [place], [address], [place] tel:[phone] [facility] [place] No Information Nov-0 1-201 3 Dom Aden. [facility], [address], [place], [address], [place]. tel:[phone] Z [facility], [address], [place], [address], [place] tel:[phone] [facility] No Information Koffi- 9-201 3 Mehbod Amir. [facility], [address], [place], [place], [address], [place]. tel:[phone] Office/Outpa tient Visit,Est, Mod Z [facility], [address], [place], [address], [place] tel:[phone] [employer] No Information Mar-0 8-201 3 Mehbod Amir. [facility], [address] [facility] [address], [place], [place], [id number], [place]. tel:[phone] Office/Outpa tient Visit,Est, Mod Z [facility], [address] [facility] [address], [place], [address], [place] tel:[phone] [employer] No Information Mar-2 6-201 2 Mehbod Amir. [facility], [address], [place], [place], [address], [place]. tel:[phone] Z [facility], [address] [place], [place] [address], [place], [address], [place] tel:[phone] [employer] No Information Feb-1 1-201 2 Mehbod Amir. [facility], [address], [place], [place], [address], [place]. tel:[phone] Z [facility], [address], [place], [address], [place] tel:[phone] [facility] No Information Dec-2 2-201 2 Mehbod Amir. [facility], [address], [place], [place], [address], [place]. tel:[phone] Office/Outpa tient Visit,Est, Low Z [facility], [address], [place], [address], [place] tel:[phone] [employer] No Information Nov-3 0-201 2 Mehbod Amir. [facility], [address], [place], [place], [address], [place]. tel:[phone] Office/Outpa tient Visit,Est, Mod Z [facility], [address], [place], [address], [place] tel:[phone] [facility] LUMBAGO Nov-0 201 2 Mehbod Amir. [facility], [address], [place], [place], [address], [place]. tel:[phone] Z [facility], [address], [place], [address], [place] tel:[phone] [employer] No Information Aug-0 2 No Information Z [facility], [address], [place], [address], [place] tel:[phone] [facility] No Information Jul-2 2 No Information Office/Outpa tient Visit,Est, Mod Z [facility], [address], [place], [address], [place] tel:[phone] [employer] No Information 2 0 2 No Information Office/outpa tient visit,new, mod Z [facility], [address], [place], [address], [place] tel:[phone] [employer] No Information Jul-2 2 0 No Information [...]
--- OUTSIDE RECORDS SUMMARY | 2023-12-07 15:53 | XMS_ITS | Clinical Summary ---
Author Organization [facility] Address [place], [place] [address] Care Team Providers Care Certified Medical Aide Name Role Phone Votel, Demetrio Palafox MD Primary Care Provider + Allergies Active Allergy Reactions Criticality Noted Date [...] agreement signed 05/24/2017 Overview: Douglas Ramírez MD [facility] Graciahillary Alexandre CMA....05/24/2017 7:20 AM Drug-seeking behavior 04/22/2013 [...] contract 03/29/2007 12/30/2007 Overview: signed 07/09/06 08-06-2006 [facility] no longer prescribing narcotic medications Pain in limb 08/29/2006 11/06/2023 Alcohol abuse, unspecified 06/13/2006 0 11/23/2020 Backache, unspecified 06/13/20062020 Overview: chronic Myocarditis, unspecified 06/13/2006 Overview: Remote HX of Encounters Date Type Department Care Team Description 12/05/2023 Telephone [facility] [address] [place] [address] Votel, Demetrio Palafox MD Appointment 12/04/2023 Orders Only [facility] Scanner 1 scan: (1-Ord) [place] [facility], VENOUS RT LEG, 12/04/2023 11/28/2023 Orders Only [facility] Scanner 1 scan: (1-Ord) [facility], KNEE RT 3V, 11/28/2023 11/28/2023 Orders Only [facility] Scanner 1 scan: (1-Ord) [place] [facility], LT HIP, 11/28/2023 11/06/2023 2:30 PM CDT Telemedicine [facility] [address] [facility] [address] Saige Fairbanks DO Telehealth (No vitals ) 11/06/2023 Travel 11/05/2023 Travel 10/04/2023 Refill [facility] [address] [place] [address] Lisseth Armando PA Refill Request (Fluticasone (50 [...] treatment at age 14; last treatment at [facility] 2015,2016*Sober since 03/16/16 PHQ-2 Answer Date Recorded [...] Description 12/11/2023 3:30 PM CDT Office Visit [facility] [place] [address] [facility] [address] [place] [id number] Jay Baron MD [address] [facility] [address] [place] [address] Health Maintenance Due Date Last Done Comments [...] history exists Medical Devices Implanted Type Area Carriage Rider Device Identifier Shelf Expiration Date Model / Serial / Lot [id number] Bone Dbx 5cc [id number] [[id number]] Implanted:Qty: 1 on 10/30/2012 at [facility] Explanted:at [facility] (Quantity not on file) Spine Musculoskeletal Transplant 07/16/2014 [id number]# / [id number] / [id number] 173bone Canclls Crushed 30cc [[id number]][[id number]] Implanted:Qty: 1 on 10/30/2012 at [facility] Explanted:(Quant ity not on file) Spine Musculoskeletal Transplant 04/24/2016 [id number]# / [id number] / Set Screw 3dx - [id number] Implanted:Qty: 4 on 10/30/2012 by Audi Jain at [facility] N/A: Spine Medtronic Spine/Ortho [id number]# / / Cnnctr Tsrh 3dx Sm - [id number] Implanted:Qty: 4 on 10/30/2012 by Audi Jain at [facility] N/A: Spine Medtronic Spine/Ortho [id number]# / / Screw Thin Crest 6.5x45mm - [id number] Implanted:Qty: 4 on 10/30/2012 by Audi Jain at [facility] N/A: Spine Medtronic Spine/Ortho [id number]# / / Keith 3.5cmx5.5mm Pre-Cut - [id number] Implanted:Qty: 2 on 10/30/2012 by Audi Jain at [facility] Medtronic Spine/Ortho [id number]# / / Perimeter Lg 16mm 8 Deg Add-On - [id number] Implanted:Qty: 1 on 10/30/2012 at [facility] N/A: Spine Medtronic Spine/Ortho [id number]# / / [id number] Bone Matrix 5cc Stimulan Kit Rapid Cure - [id number] Implanted:Qty: 1 on 03/21/2018 by Rashad Pearson MD at [facility] Right: Foot [employer] 12/11/2020 [id number]# / / 11/28-R37 6/377 Screw Foot 5x55mm Fixos Comp Headless - [id number] Implanted:Qty: 1 on 08/20/2018 by Rashad Pearson MD at [facility] Left: Foot [employer] [id number]# / / Description:Load [id number] Screw Foot 7x80mm Fixos Comp Headless Shrt - [id number] Implanted:Qty: 1 on 08/20/2018 by Rashad Pearson MD at [facility] Left: Foot [employer] [id number]# / / Description:Load [id number] Procedures Procedure Name Priority Date/Time Associated Diagnosis Comments SCAN-ULTRASOUND REPORT 12/04/2023 12:00 AM CDT SCAN-RADIOLOGY REPORT 11/28/2023 12:00 AM CDT SCAN-RADIOLOGY REPORT 11/28/2023 12:00 AM CDT OCCULT BLOOD IFOBT STOOL Routine 10/03/2021 2:21 PM CDT Screening for colorectal cancer from Last 3 Months or Most Recently Relevant to Health Maintenance Results * SCAN-ULTRASOUND REPORT (12/04/2023 12:00 AM CDT) Anatomical Region Laterality Modality Other Scanner OTHER * SCAN-RADIOLOGY REPORT (11/28/2023 12:00 AM CDT) Only the most recent of2 resultswithin the time period is included. Anatomical Region Laterality Modality Other Scanner OTHER * OCCULT BLOOD IFOBT STOOL (10/03/2021 2:21 PM CDT) STOOL BLOOD ,IFOBT Negative Negative 10/07/2021 11:41 AM CDT [facility] Stool STOOL SPECIMEN / Unknown Non-Blood / Unknown 10/03/2021 2:21 PM CDT 10/06/2021 2:21 PM CDT Demetrio Peña MD LABORATORY [facility] [address] [place] [address], from Last 3 Months or Most Recently [...] 9:27 AM 12/25/2017 7:50 PM Care Teams Certified Medical Aide Relationship Specialty Start Date End Date Votel, Demetrio Palafox MD [address] [place] [address] PCP - General Family Practice 12/05/23
--- OUTSIDE RECORDS SUMMARY | 2023-12-07 15:53 | XMS_ITS | Continuity of Care Document ---
Author Organization [facility] Address [address] [place] [address] [place] [address] Phone Care Team Providers Care Box Lining Machine Feeder Name Role Phone Will Dante DAILY Unavailable [...] Diagnoses Date Provider Providers Copied on Encounter [facility], [address] [facility] [place], [id number] , [place] tel:[phone] [facility] No Information 2 Will Datne. [address] [place], [address] , [place]. tel: [phone] [facility], [address] [place] [address] Teodoro Daya [place], [id number] , [place] tel: [phone] [facility] No Information Oct-2 2-201 8 Bennie Howell. [address] [facility] [address] [place], [id number] , [place]. tel: [phone] OFFICE/OUTPAT IENT VISIT, [facility], [address] [facility] [place], [place], [address] , [place] tel: [phone] [facility] Leg Pain (chief complaint) Other intervertebral disc degeneration, lumbar regionSpondylolist hesis, lumbar regionNeuroma of amputation stump, right lower extremity Oct- 1 8 Pearson Napoleon. [employer], [address], [place], [address], [place]. tel: [phone] OFFICE/OUTPAT IENT VISIT, [facility], [address] [place] [address], [id number] , [place] tel: [phone] [facility] right foot pain (chief complaint) Spondylolisthesis, lumbar regionOther intervertebral disc degeneration, lumbar regionNeuroma of amputation stump, right lower extremity Sep-2 8-201 8 Pearson Napoleon. [employer], [address], [place], [address], [place]. tel: [phone] OFFICE/OUTPAT IENT VISIT, [facility], [address] [facility] [place], [place], [address] , [place] tel: [phone] [facility] low back pain (chief complaint) bilateral foot pain (chief complaint) Other intervertebral disc degeneration, lumbar regionSpondylolist hesis, lumbar regionNeuroma of amputation stump, right lower extremity Sep-1 7-201 8 Pearson Napoleon. [employer], [address], [place], [address], [place]. tel: [phone] OFFICE/OUTPAT IENT VISIT, [facility], [address] [place] [address], [id number] , [place] tel: [phone] [facility] low back pain (chief complaint) Other intervertebral disc degeneration, lumbar regionSpondylolist hesis, lumbar regionNeuroma of amputation stump, right lower extremityPostlamin ectomy syndrome, not elsewhere classified Sep-0 8 Pearson Napoleon. [facility], [address], [place], [address], [place]. tel: [phone] OFFICE/OUTPAT IENT VISIT, EST [facility], [address] [place], [place], [id number] , [place] tel: [phone] [facility] low back pain (chief complaint) Postlaminectomy syndrome, not elsewhere classifiedOther intervertebral disc degeneration, lumbar regionSpondylolist hesis, lumbar regionNeuroma of amputation stump, right lower extremity Dec-2 8 Pearson Napoleon. [facility], [address], [place], [address], [place]. tel: [phone] OFFICE/OUTPAT IENT VISIT, EST [facility], [address] [place], [place], [address] , [place] tel: [phone] [facility] low back pain (chief complaint) Postlaminectomy syndrome, not elsewhere classifiedNeuroma of amputation stump, right lower extremityOther intervertebral disc degeneration, lumbar regionSpondylolist hesis, lumbar region Dec-0 8 Pearson Napoleon. [facility], [address], [place], [address], [place]. tel: [phone] Specialist : Carlitos Ramos, [facility] [address], [place], [address] . tel:[phone] OFFICE/OUTPAT IENT VISIT, EST [facility], [address] [place], [place], [address] , [place] tel: [phone] [facility] low back pain (chief complaint) Other intervertebral disc degeneration, lumbar regionSpondylolist hesis, lumbar regionPostlaminect charlie syndrome, not elsewhere classifiedNeuroma of amputation stump, right lower extremity Micheal Bello . [address] [place], [id number] , [place]. tel:[phone] OFFICE/OUTPAT IENT VISIT, [facility], [address] [place] [address] [place], [place], [address] , [place] tel: [phone] [facility] low back pain (chief complaint) Other intervertebral disc degeneration, thoracolumbar regionOther intervertebral disc degeneration, lumbar regionSpondylolist hesis, lumbar regionLow back painLong term (current) use of opiate analgesic Micheal Bello . [address] [facility] Frida Day [place], [id number] , [place]. tel:[phone] Specialist : Carlitos Ramos, [facility] [address], [place], [address] . tel:[phone] OFFICE/OUTPAT IENT VISIT, [facility], [address] [place] [address] [place], [place], [address] , [place] tel:[phone] [facility] low back pain (chief complaint) Other intervertebral disc degeneration, thoracolumbar regionOther intervertebral disc degeneration, lumbar regionSpondylolist hesis, lumbar regionLow back pain Micheal Bello . [address] [facility] Fr[place], [id number] , [place]. tel:[phone] Specialist : Carlitos Ramos, [facility] [address], [place], [address] . tel:[phone] OFFICE/OUTPAT IENT VISIT, [facility], [address] [place] [address] [place], [place], [address] , [place] tel:[phone] [facility] low back pain (chief complaint) Postlaminectomy syndrome, not elsewhere classifiedLow back painLong term (current) use of opiate analgesicSpondylol isthesis, lumbar regionOther intervertebral disc degeneration, lumbar regionOther intervertebral disc degeneration, thoracolumbar region Micheal Bello . [address] [facility] [address] [place], [id number] , [place]. tel:[phone] Specialist : Carlitos Ramos, [facility] [address], [place], [address] . tel:[phone] OFFICE CONSULTATION [facility], [address] [facility] [place], [place], [address] , [place] tel:[phone] [facility] [place] low back pain (chief complaint) Low back painPostlaminectom y syndrome, not elsewhere classifiedLong term (current) use of opiate analgesic Micheal Bello . [address] [place], [id number] , [place]. tel:[phone] Family History Family Member Type Diagnosis Age At Onset No Information Payers Payer name Insurance type Covered constitution party ID Authortalaa benjie(s) Oscar [facility] [id number] Social History Type Description Quantity Date Captured Comments Sex Male Smoking Status No Information Chief Complaint And Reason For Visit No Information Reason For Referral Reason For Referral No Information Plan Of Treatment Date Type Action Status Referral Ordered: MRI LUMBAR SPINE W/O DYE ordered Referral Ordered: Mikey [facility] [place] (related to Low back pain) ordered Referral Referred To: [facility] [address] [place], [place] [id number] Ordered: Referrals: Referrals: [facility]. Evaluate and treat [facility]. Evaluate and treat ordered Referral Ordered: [facility] (related to Low back pain) ordered Referral Referred To: [facility] [address] [place], [place] [id number] Ordered: Referrals: [facility]. Location: [facility]. Evaluate and treat ordered Future Order: Lab Order COMPLIAN CE DRUG ANALYSIS, URINE, WITH MED REPORT ([id number]), Ordered on: Ordered Future Order: Lab Order COMPLIAN CE DRUG ANALYSIS, URINE, WITH MED REPORT ([id number]), Ordered on: Ordered History Of Present Illness [...] lying down and TENS. low back pain Severity level i s [...] only given 3 weeks worth (confirmed on DIRECTOR PLANS). Says a home nurse has been distributing [...] pain. He has started physical therapy at [facility] for low back pain, once per week. [...] meds/drugs, rest and TENS. low back pain Severity level i s [...] followup after initial consult. He would like [facility] to take over medication management, was previously being managed by Dr. Grijalva. Medications provide 70% relief from pain; pt denies side effects. Continues to c/o low back pain and neuropathy of b/l feet. Sp L4-5 fusions; was told by Dr. Ramos at [facility] that his lumbar graft failed [...] S/P L2-3 fusion completed in 2012 at [facility]. Also has had pain in both of his feet for 30 years now. His current medication regimen is as follows: Oxycodone 15mg MAX 7/day and MSER 15mg 3/day; MME is 312.5 mg/day. Has done chiropractor for 3 years, acupuncture for 2 years, PT at [facility] in 2004 and [facility] in 2010, 2012 and 2014 (somewhat helfpul), ESIs done at [facility] pre and post surgery; does not believe [...]
--- OUTSIDE RECORDS SUMMARY | 2023-12-07 15:53 | XMS_ITS | Patient Health Record ---
Author Organization 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) Active confirmed High ris k drug monitoring status (369670976) Problem Chronic pain syndrome (G89.4) Active confirmed Chronic bandar n syndrome (790939967) Problem Postlaminectomy syndrome, not elsewhere classified (M96.1) Active confirmed Post-lami necto my syndrome (49455317) Problem Pain in left ankle and joints of left foot (M25.572) Active confirmed Arthralgia of the ankle and/or foot (889063924) Problem Obesity, unspecified (E66.9) Active confirmed Obesity (424881563) Problem Unspecified internal derangement of right knee (M23.91) Active confirmed Derangem ent of knee (16413167) Problem Fusion of spine, site unspecified (M43.20) Active confirmed Problem Acquired absence of unspecified foot (Z89.439) Active confirmed Amputated foot (850328403) PLAN OF TREATMENT No Information Insurance Providers Payer Name Payer Address Payer Phone Subscriber Number Group Number Insured Name Patient Relationship to Insured Coverage Start Date Coverage End Date [facility] [employer] [address] [address] [place] [address] [phone] [id number] Gianni Mijares Self - patient is the insured MEDICAL (GENERAL) HISTORY Medical History History ICD Code partial right foot amputation Chronic back pain Surgical History Surgery Date(Month/Year) Fusion of back 2012 partial right foot amputation 2007 Rt knee meniscal repair, arthroscopic Hospitalization History Reason Date(Month/Year) ED for Cellulitis 03/2022
--- OUTSIDE RECORDS SUMMARY | 2023-12-07 15:54 | XMS_ITS | Continuity of Care Document ---
Author Organization [facility] Address [address] [facility] [address] [place] [address] Phone Care Team Providers Care Tableman Name Role Phone Lara Martino PA-C Unavailable Unavail able Allergies, Adverse Reactions, Alerts Substance Reaction Status Criticality No Known Allergies Active No Inform ation Medications Medication Instructions Dosage Effective Dates (start - stop) Status Comments oxycodone 5 mg tablet Take 1 tablet by oral route once per day for severe pain as needed - Active acute on chronic gabapentin 300 mg capsule take 1 capsule [...] PAIN IMP PUMP JUAN Pump Programming W/Refill Marci AGUIRRE 2023 HIT PAIN IMP PUMP JUAN HIT [...] Jt; Lumb/sac-ea 09 Offic/outpt E&m Estab Minor 10 09 Fluoroscopic Guidance For Needle Placeme nt - Spine Inj Anes Facet Jt; Lumb/sac-1l Inj Anes Facet Jt; Lumb/sac-ea Offic Cons New/estab Mod-hi 60 Advance Directives Directive Yes / No Effective Date File Name No Information Encounters Encounter Description Practice Location Reason(s) For Visit Diagnoses Date Provider Providers Copied on Encounter [facility], [address], [place], [place], [address], [place] tel:[phone] [facility] No Information 4 Gunner Bermudez. [address], [place], [address], [place]. tel:[phone] Est Pt Eval Telehealth [facility], [address], [place], [place], [address], [place] tel:[phone] [facility] lower back pain (chief complaint) Body mass index (BMI) 32.0-32.9, adultOther spondylosis with radiculopathy , lumbar regionPostlam inectomy syndrome, not elsewhere classified 4 Jamie Herrera. [address], [address], [place], [address], [place]. tel:[phone] Referring Provider: Ricco Hill MD K, [address] [facility] [address] [facility], [place], [address]. tel:[phone] Est Pt Eval Telehealth [facility], [address], [place], [place], [address], [place] tel:[phone] [facility] lower back pain (chief complaint) Pain in unspecified ankle and joints of unspecified footOther spondylosis with radiculopathy , lumbar regionPostlam inectomy syndrome, not elsewhere classifiedBod y mass index (BMI) 32.0-32.9, adult Oct-0 4 Jamie Herrera. [address], [address], [place], [address], [place]. tel:[phone] Referring Provider: Ricco Pedraza, [facility] [address] [facility], [place], [address]. tel:[phone] HOME INFUSION/VIS IT, 2 HRS [facility], [address], [place], [place], [address], [place] tel:[phone] Home Visit lower back pain (chief complaint) Postlaminecto my syndrome, not elsewhere classified 4 RN RN. [address] , [address], [place], [address], [place]. tel:[phone] Referring Provider: Ricco Pedraza, [facility]0 [facility] [address] [place], [place] [address], [place], [address]. tel:[phone] [facility], [address] [facility] [address], [place], [address], [place] tel:[phone] Home Visit No Information 4 RN RN. [address] , [address], [place], [address], [place]. tel:[phone] Referring Provider: Ricco Pedraza, [facility]0 [facility] [address] [place] [address] [facility], [place], [address]. tel:[phone] [facility], [address] [facility] [address], [place], [address], [place] tel:[phone] Home Visit No Information 4 RN RN. [address], [address], [place], [address], [place]. tel:[phone] Referring Provider: Ricco Pedraza, [address] [place] [address] [address] [facility], [place], [address]. tel:[phone] [facility], [address], [place], [address], [place] tel:[phone] Home Visit lower back pain (chief complaint) Postlaminecto my syndrome, not elsewhere classifiedChr onic pain syndromePostl aminectomy syndrome, not elsewhere classified Apr-0 4 RN RN. [address], [address], [place], [address], [place]. tel:[phone] Referring Provider: Ricco Pedraza, [address] [place] [address] [address] [facility], [place], [address]. tel:[phone] [facility], [address], [place], [address], [place] tel:[phone] Home Visit No Information 4 RN RN. [address], [address], [place], [address], [place]. tel:[phone] Referring Provider: Ricco Pedraza, [address] [place] [address] [address] [facility], [place], [address]. tel:[phone] [facility], [address], [place], [address], [place] tel:[phone] Home Visit No Information 4 RN RN. [address], [address], [place], [address], [place]. tel:[phone] Referring Provider: Ricco Pedraza, [address] [place], [place] [address] [address] [facility], [place], [address]. tel:[phone] [facility], [address], [place], [place], [address], [place] tel:[phone] Home Visit Pump Visit (chief complaint) Postlaminecto my syndrome, not elsewhere classifiedOth er chronic painPostlamin ectomy syndrome, not elsewhere classified 4 RN RN. [address] , [address], [place], [address], [place]. tel:[phone] Referring Provider: Ricco Pedraza, [address] [place] [address] [facility], [place], [address]. tel:[phone] [facility], [address], [address], [place] tel:[phone] Home Visit No Information 4 RN RN. [address] , [address], [address], [place]. tel:[phone] Referring Provider: Ricco Pedraza, [address] [place] [address] [facility], [place], [address]. tel:[phone] [facility], [address], [address], [place] tel:[phone] Home Visit No Information 4 RN RN. [address] , [address], [address], [place]. tel:[phone] Referring Provider: Ricco Pedraza, [address] [place] [address] [facility], [place], [address]. tel:[phone] [facility], [address], [address], tel:[phone] Home Visit Pump Visit (chief complaint) Postlaminecto my syndrome, not elsewhere classifiedChr onic pain syndromePostl aminectomy syndrome, not elsewhere classified 3 RN RN. [address] , [address], [place], [address], [place]. tel:[phone] Referring Provider: Ricco Pedraza, [address] [place] [address] [facility], [place], [address]. tel:[phone] [facility], [address] [facility] [address], [place], [address], [place] tel:[phone] Home Visit No Information 3 RN RN. [address] , [address], [place], [address], [place]. tel:[phone] Referring Provider: Ricco Pedraza, [address] [place] [address] [facility], [place], [address]. tel:[phone] [facility], [address] [facility] [address], [place], [address], [place] tel:[phone] Home Visit Pump Visit (chief complaint) Postlaminecto my syndrome, not elsewhere classifiedPos tlaminectomy syndrome, not elsewhere classified 3 RN RN. [address] , [facility] [address], [place], [address], [place]. tel:[phone] Referring Provider: Ricco Pedraza, [address] [place], [place] [address], [place], [address]. tel:[phone] [facility], [address] [facility] [address], [place], [address], [place] tel:[phone] Home Visit No Information 3 RN RN. [address] , [facility] [address], [place], [address], [place]. tel:[phone] Referring Provider: Ricco Pedraza, [address] [place] [address] [facility], [place], [address]. tel:[phone] [facility], [address] [facility] [address], [place], [address], tel:[phone] Home Visit No Information 3 RN RN. [address] , [address], [place], [address], [place]. tel:[phone] Referring Provider: Ricco Pedraza, [address] [place] [address] [facility], [place], [address]. tel:[phone] [facility], [address] [facility] [address], [place], [address], tel:[phone] Home Visit Pump Visit (chief complaint) Chronic pain syndromePostl aminectomy syndrome, not elsewhere classifiedChr onic pain syndrome Sep- 3 RN RN. [address] [facility] [address], [place], [address], [place]. tel:[phone] Referring Provider: Ricco Pedraza, [address] [place] [address] [facility], [place], [address]. tel:[phone] [facility], [address] [facility] [address], [place], [address], [place] tel:[phone] Home Visit No Information 3 RN RN. [address] [facility] [address], [place], [address], [place]. tel:[phone] Referring Provider: Ricco Pedraza, [address] [place] [address] [facility], [place], [address]. tel:[phone] [facility], [address] [facility] [address], [place], [address], tel:[phone] Home Visit Pump Visit (chief complaint) Postlaminecto my syndrome, not elsewhere classifiedChr onic pain syndromePostl aminectomy syndrome, not elsewhere classified 3 RN RN. [address] , [address], [place], [address], [place]. tel:[phone] Referring Provider: Ricco Pedraza, [address] [place] [address] [address] [facility], [place], [address]. tel:[phone] [facility], [address] [facility] [address], [place], [address], tel:[phone] Home Visit No Information 3 RN RN. [address] , [address], [place], [address], [place]. tel:[phone] Referring Provider: Ricco Pedraza, [address] [place] [address] [facility], [place], [address]. tel:[phone] [facility], [address] [facility] [address], [place], [address], [place] tel:[phone] Home Visit No Information 3 RN RN. [address] , [address], [place], [address], [place]. tel:[phone] Referring Provider: Ricco Pedraza, [address] [place] [address] [facility], [place], [address]. tel:[phone] [facility], [address] [facility] [address], [place], [address], [place] tel:[phone] Home Visit back pain (chief complaint) Postlaminecto my syndrome, not elsewhere classifiedChr onic pain syndromePostl aminectomy syndrome, not elsewhere classified 3 RN RN. [address] , [address], [place], [address], [place]. tel:[phone] Referring Provider: Ricco Pedraza, [address] [place] [address] [facility], [place], [address]. tel:[phone] [facility], [address], [place], [place], [address], [place] tel:[phone] Home Visit No Information 3 RN RN. [address] , [address], [place], [address], [place]. tel:[phone] Referring Provider: Ricco Pedraza, [facility]0 [facility] [address] [facility], [place], [address]. tel:[phone] [facility], [address], [place], [address], [place] tel:[phone] Home Visit back pain (chief complaint) Postlaminecto my syndrome, not elsewhere classifiedChr onic pain syndromePostl aminectomy syndrome, not elsewhere classified 3 RN RN. [address] , [address], [place], [address], [place]. tel:[phone] Referring Provider: Ricco Pedraza, [facility]0 [facility] [address] [facility], [place], [address]. tel:[phone] [facility], [address] [facility] [address], [place], [address], [place] tel:[phone] Home Visit No Information 3 RN RN. [address] , [address], [place], [address], [place]. tel:[phone] Referring Provider: Ricco Pedraza, [facility]0 [facility] [address] [facility], [place], [address]. tel:[phone] [facility], [address], [place], [address], [place] tel:[phone] Home Visit Postlaminecto my syndrome, not elsewhere classifiedChr onic pain syndromePostl aminectomy syndrome, not elsewhere classified 3 RN RN. [address], [address], [place], [address], [place]. tel:[phone] Referring Provider: Ricco Pedraza, [address] [place] [address] [address] [facility], [place], [address]. tel:[phone] [facility], [address], [place], [address], [place] tel:[phone] Home Visit No Information 3 RN RN. [address], [address], [place], [address], [place]. tel:[phone] Referring Provider: Ricco Pedraza, [address] [place] [address] [facility], [place], [address]. tel:[phone] [facility], [address], [place], [address], [place] tel:[phone] Home Visit Pump Visit (chief complaint) Postlaminecto my syndrome, not elsewhere classifiedChr onic pain syndromePostl aminectomy syndrome, not elsewhere classified 3 RN RN. [address], [address], [place], [address], [place]. tel:[phone] Referring Provider: Ricco Pedraza, [address] [place] [address] [address] [facility], [place], [address]. tel:[phone] [facility], [address], [place], [address], [place] tel:[phone] Home Visit No Information 3 RN RN. [address], [address], [place], [address], [place]. tel:[phone] Referring Provider: Ricco Pedraza, [address] [place] [address] [address] [facility], [place], [address]. tel:[phone] [facility], [address], [place], [place], [address], [place] tel:[phone] Home Visit No Information 3 RN RN. [address], [address], [place], [place], [address], [place]. tel:[phone] Referring Provider: Ricco Pedraza, [address] [place] [address] [facility], [place], [address]. tel:[phone] [facility], [address], [place], [place], [address], [place] tel:[phone] Home Visit back pain (chief complaint) left leg pain (chief complaint) Postlaminecto my syndrome, not elsewhere classifiedPos tlaminectomy syndrome, not elsewhere classified 3 RN RN. [address], [address], [place], [address], [place]. tel:[phone] Referring Provider: Ricco Pedraza, [address] [place], [place] [address], [place], [address]. tel:[phone] [facility], [address], [place], [place], [address], [place] tel:[phone] Home Visit No Information 3 RN RN. [address], [address], [place], [place], [address], [place]. tel:[phone] Referring Provider: Ricco Pedraza, [address] [place] [address] [address] [facility], [place], [address]. tel:[phone] [facility], [address], [place], [place], [address], [place] tel:[phone] Home Visit No Information 2 RN RN. [address], [address], [place], [place], [address], [place]. tel:[phone] Referring Provider: Ricco Pedraza, [address] [place], [place] [address], [place], [address]. tel:[phone] [facility], [address] [facility] [address], [place], [address], [place] tel:[phone] Home Visit back pain (chief complaint) joint pain (chief complaint) Postlaminecto my syndrome, not elsewhere classifiedPos tlaminectomy syndrome, not elsewhere classified 2 RN RN. [address], [address], [place], [address], [place]. tel:[phone] Referring Provider: Ricco Pedraza, [address] [place] [address] [facility], [place], [address]. tel:[phone] [facility], [address], [place], [address], [place] tel:[phone] Home Visit No Information 2 RN RN. [address] , [address], [place], [address], [place]. tel:[phone] Referring Provider: Ricco Pedraza, [address] [place] [address] [facility], [place], [address]. tel:[phone] [facility], [address], [place], [address], [place] tel:[phone] Home Visit back pain (chief complaint) Postlaminecto my syndrome, not elsewhere classifiedPos tlaminectomy syndrome, not elsewhere classified 2 RN RN. [address], [address], [place], [address], [place]. tel:[phone] Referring Provider: Ricco Pedraza, [address] [place] [address] [facility], [place], [address]. tel:[phone] E[facility], [address] [facility] [address], [place], [address], [place] tel:[phone] Home Visit No Information 2 RN RN. [address] [facility], [address], [place], [address], [place]. tel:[phone] Referring Provider: Ricco Pedraza, [address] [place] [address] [facility], [place], [address]. tel:[phone] ELLIOTT [facility], [address] [facility] [address], [place], [address], tel:[phone] Home Visit Postlaminecto my syndrome, not elsewhere classifiedPai n in right footPain disorder with related psychological factorsPostla minectomy syndrome, not elsewhere classified Sep- 2 RN RN. [address] [facility], [facility] [address], [place], [address], [place]. tel:[phone] Referring Provider: Ricco Pedraza, [address] [place] [address] [facility], [place], [address]. tel:[phone] Est Pt Eval 25 Min ELLIOTT Navarro, [address] [facility] [address], [place], [address], [place] tel:[phone] [facility] Body aches (chief complaint) Other spondylosis with radiculopathy , lumbar regionPain in unspecified ankle and joints of unspecified footPostlamin ectomy syndrome, not elsewhere classifiedBod y mass index (BMI) 32.0-32.9, adult Sep-1 2 Ketola Taliaferro. [address] [facility], [place], [address], [place]. tel:[phone] Referring Provider: Ricco Pedraza, [facility]0 [facility] [address] [facility], [place], [address]. tel:[phone] [facility], [address], [place], [place], [address], [place] tel:[phone] Home Visit No Information 2 RN RN. [address], [address], [place], [address], [place]. tel:[phone] Referring Provider: Ricco Pedraza, [address] [place] [address] Suite [facility], [place], [address]. tel:[phone] [facility], [address], [place], [place], [address], [place] tel:[phone] [facility] No Information 2 Anaid Sandovalmarlon. [address], [address], [place], [address], [place]. tel:[phone] Referring Provider: Ricco Pedraza, [address] [place], [place] [address], [place], [address]. tel:[phone] [facility], [address], [place], [place], [address], [place] tel:[phone] Home Visit back pain (chief complaint) Postlaminecto my syndrome, not elsewhere classifiedPos tlaminectomy syndrome, not elsewhere classified 2 RN RN. [address], [address], [place], [address], [place]. tel:[phone] Referring Provider: Ricco Pedraza, [facility]0 [facility] [address] [facility], [place], [address]. tel:[phone] [facility], [address], [place], [place], [address], [place] tel:[phone] Home Visit No Information 2 RN RN. [address], [place], [place], [address], [place]. tel:[phone] Referring Provider: Ricco Pedraza, [address] [place] [address] [facility], [place], [address]. tel:[phone] Est Pt Eval 25 Min [facility], [address], [place], [place], [address], [place] tel:[phone] [facility] back pain (chief complaint) Body mass index (BMI) 31.0-31.9, adultOther spondylosis with radiculopathy , lumbar regionPain in unspecified ankle and joints of unspecified footPostlamin ectomy syndrome, not elsewhere classified 2 She Qiying. [address] , [address], [place], [address], [place]. tel:[phone] Referring Provider: Ricco Pedraza, [address] [place], [place] [address], [place], [address]. tel:[phone] [facility], [address] [facility] [address], [place], [address], [place] tel:[phone] Home Visit back pain (chief complaint) Postlaminecto my syndrome, not elsewhere classifiedChr onic pain syndromePostl aminectomy syndrome, not elsewhere classified 2 RN RN. [address] , [address], [place], [address], [place]. tel:[phone] Referring Provider: Ricco Pedraza, [address] [place] [address] [address] [facility], [place], [address]. tel:[phone] [facility], [address] [facility], [place], [place], [address], [place] tel:[phone] Home Visit No Information 2 RN RN. [address] , [facility] [address], [place], [address], [place]. tel:[phone] Referring Provider: Ricco Pedraza, [address] [place] [address] [facility], [place], [address]. tel:[phone] [facility], [address] [facility] [address], [place], [address], [place] tel:[phone] Home Visit back pain (chief complaint) Postlaminecto my syndrome, not elsewhere classifiedChr onic pain syndromePostl aminectomy syndrome, not elsewhere classified 2 RN RN. [address] , [facility] [address], [place], [address], [place]. tel:[phone] Referring Provider: Ricco Pedraza, [address] [place] [address] [facility], [place], [address]. tel:[phone] [facility], [address], [address], [place] tel:[phone] Home Visit No Information 2 RN RN. [address] , [facility] [address], [place], [address], [place]. tel:[phone] Referring Provider: Ricco Pedraza, [address] [place] [address] [facility], [place], [address]. tel:[phone] [facility], [address] [facility] [address], [place], [address], tel:[phone] Home Visit back pain (chief complaint) Postlaminecto my syndrome, not elsewhere classifiedChr onic pain syndromePostl aminectomy syndrome, not elsewhere classified 2 RN RN. [address] , [facility] [address], [place], [address], [place]. tel:[phone] Referring Provider: Ricco Pedraza, [address] [place] [address] [facility], [place], [address]. tel:[phone] [facility], [address] [facility] [address], [place], [address], [place] tel:[phone] Home Visit No Information 2 RN RN. [address] [facility], [facility] [address], [place], [address], [place]. tel:[phone] Referring Provider: Ricco Pedraza, [address] [place] [address] [facility], [place], [address]. tel:[phone] [facility], [address] [facility] [address], [place], [address], [place] tel:[phone] Home Visit back pain (chief complaint) bilateral leg pain (chief complaint) Postlaminecto my syndrome, not elsewhere classifiedChr onic pain syndromePostl aminectomy syndrome, not elsewhere classified Apr0 2 RN RN. [address] [facility], [facility] [address], [place], [address], [place]. tel:[phone] Referring Provider: Ricco Pedraza, [address] [place], [place] [address], [place], [address]. tel:[phone] [facility], [address] [facility] [address], [place], [address], [place] tel:[phone] Home Visit No Information 0 2 RN RN. [address] [facility], [facility] [address], [place], [address], [place]. tel:[phone] [id number] Referring Provider: Ricco Pedraza, [address] [place] [address] [facility], [place], [address]. tel:[phone] [facility], [address], [place], [place], [address], [place] tel:[phone] Home Visit back pain (chief complaint) left leg pain (chief complaint) Postlaminecto my syndrome, not elsewhere classifiedPos tlaminectomy syndrome, not elsewhere classified 2 RN RN. [address], [address], [place], [place], [address], [place]. tel:[phone] Referring Provider: Ricco Pedraza, [facility] [address] [facility], [place], [address]. tel:[phone] [facility], [address], [place], [place], [address], [place] tel:[phone] Home Visit No Information 2 RN RN. [address], [address], [place], [address], [place]. tel:[phone] Referring Provider: Ricco Pedraza, [facility]0 [facility] Suite [facility], [place], [address]. tel:[phone] [facility], [address], [place], [place], [address], [place] tel:[phone] Home Visit back pain (chief complaint) Postlaminecto my syndrome, not elsewhere classifiedChr onic pain syndromePostl aminectomy syndrome, not elsewhere classified 2 RN RN. [address], [address], [place], [address], [place]. tel:[phone] Referring Provider: Ricco Pedraza, [facility] [address] [facility], [place], [address]. tel:[phone] [facility], [address], [place], [place], [address], [place] tel:[phone] Home Visit No Information 2 RN RN. [address] , [address], [place], [address], [place]. tel:[phone] Referring Provider: Ricco Pedraza, [address] [place], [place] [address], [place], [address]. tel:[phone] [facility], [address] [facility] [address], [place], [address], tel:[phone] Home Visit back pain (chief complaint) left leg pain (chief complaint) Postlaminecto my syndrome, not elsewhere classifiedPos tlaminectomy syndrome, not elsewhere classified 2 RN RN. [address] , [address], [place], [address], [place]. tel:[phone] Referring Provider: Ricco Pedraza, [address] [place] [address] [facility], [place], [address]. tel:[phone] [facility], [address] [facility] [address], [place], [address], tel:[phone] Home Visit No Information 2 RN RN. [address] , [address], [place], [address], [place]. tel:[phone] Referring Provider: Ricco Pedraza, [address] [place] [address] [facility], [place], [address]. tel:[phone] [facility], [address] [facility] [address], [place], [address], tel:[phone] Home Visit back pain (chief complaint) Ankle Pain (chief complaint) Chronic pain syndromePostl aminectomy syndrome, not elsewhere classifiedChr onic pain syndrome 1 RN RN. [address] , [address], [place], [address], [place]. tel:[phone] Referring Provider: Ricco Pedraza, [facility]0 [facility] [address] [facility], [place], [address]. tel:[phone] [facility], [address], [place], [address], [place] tel:[phone] Home Visit No Information 1 RN RN. [address], [address], [place], [address], [place]. tel:[phone] Referring Provider: Ricco Pedraza, [address] [place], [place] [address]e [address] [facility], [place], [address]. tel:[phone] [facility], [address] [facility] [address], [place], [address], [place] tel:[phone] Home Visit No Information 1 RN RN. [address] , [address], [place], [address], [place]. tel:[phone] Referring Provider: Ricco Pedraza, [address] [place] [address] Suite [facility], [place], [address]. tel:[phone] [facility], [address], [place], [address], [place] tel:[phone] Home Visit back pain (chief complaint) Postlaminecto my syndrome, not elsewhere classifiedChr onic pain syndromePostl aminectomy syndrome, not elsewhere classified 1 RN RN. [address], [address], [place], [address], [place]. tel:[phone] Referring Provider: Ricco Pedraza, [address] [place], [place] [address] [address] [facility], [place], [address]. tel:[phone] [facility], [address] [facility] [address], [place], [address], [place] tel:[phone] Home Visit No Information 1 RN RN. [address] , [address], [place], [address], [place]. tel:[phone] Referring Provider: Ricco Pedraza, [address] [place], [place] [address], [place], [address]. tel:[phone] [facility], [address] [facility] [address], [place], [address], [place] tel:[phone] Home Visit Postlaminecto my syndrome, not elsewhere classifiedChr onic pain syndromePostl aminectomy syndrome, not elsewhere classified 1 RN RN. [address] [facility] 220[place], [place], [address], [place]. tel:[phone] Referring Provider: Ricco Pedraza, [address] [place] [address] [facility], [place], [address]. tel:[phone] [facility], [address] [facility] [address], [place], [address], [place] tel:[phone] Home Visit No Information 1 RN RN. [address] , [facility] 220[place], [place], [address], [place]. tel:[phone] Referring Provider: Ricco Pedraza, [address] [place] [address] [facility], [place], [address]. tel:[phone] [facility], [address] [facility] [address], [place], [address], tel:[phone] Home Visit No Information 1 RN RN. [address] [facility] 220[place], [place], [address], [place]. tel:[phone] Referring Provider: Ricco Pedraza, [address] [facility] [address] [facility], [place], [address]. tel:[phone] JOSE ANTONIO [facility], [address], [place], [place], [address], [place] tel:[phone] Home Visit Other intervertebra l disc displacement, lumbar regionPostlam inectomy syndrome, not elsewhere classifiedPos tlaminectomy syndrome, not elsewhere classified 1 RN RN. [address] [facility] [address], [address], [place], [place], [address], [place]. tel:[phone] Referring Provider: Ricco Pedraza, [address] [facility] [address] [facility], [place], [address]. tel:[phone] [facility], [address] [facility], [address], [place], [address], [place] tel:[phone] [facility] back pain (chief complaint) Postlaminecto my syndrome, not elsewhere classifiedOth er spondylosis with radiculopathy , lumbar regionOther intervertebra l disc degeneration, lumbosacral regionOpioid dependence, uncomplicated Postlaminecto my syndrome, not elsewhere classifiedOth er spondylosis with radiculopathy , lumbar regionOther intervertebra l disc degeneration, lumbosacral regionOpioid dependence, uncomplicated 1 [facility]. [address] [facility] [address], [place], [place], [address], [place]. tel:[phone] Referring Provider: Bulmaro Unger, [address] [facility] [address], [place], [address]. tel:[phone] [facility], [address], [place], [place], [address], [place] tel:[phone] [facility] Judith No Information 1 Vernon Chamberlain. [address], [place], [address], [place]. tel:[phone] Referring Provider: Bulmaro Unger, [address], [place], [address]. tel:[phone] [facility], [address], [address], [place], [address], [place] tel:[phone] [facility] No Information 1 Liss Chacko. [address], [place], [place], [address], [place]. tel:[phone] Referring Provider: Ricco Pedraza, [facility]0 [facility] [address] [facility], [place], [address]. tel:[phone] [facility], [address], [place], [place], [address], [place] tel:[phone] [facility] No Information 1 Liss Chacko. [address], [place], [place], [address], [place]. tel:[phone] Referring Provider: Ricco Pedraza, [facility]0 [facility] [address] [facility], [place], [address]. tel:[phone] [facility], [address], [place], [place], [address], [place] tel:[phone] Home Visit No Information 1 RN RN. [address], [address], [place], [place], [address], [place]. tel:[phone] Referring Provider: Ricco Pedraza, [facility]0 [facility] [address] [facility], [place], [address]. tel:[phone] [facility], [address], [place], [place], [address], [place] tel:[phone] Home Visit Postlaminecto my syndrome, not elsewhere classifiedPos tlaminectomy syndrome, not elsewhere classified 1 RN RN. [address] , [address], [place], [address], [place]. tel:[phone] Referring Provider: Ricco Pedraza, [address] [place] [address] [facility], [place], [address]. [phone] [facility], [address] [facility] 220[place], [place], [address], [place] tel:[phone] Home Visit No Information 1 RN RN. [address] , [address], [place], [address], [place]. tel:[phone] Referring Provider: Ricco Pedraza, [address] [place] [address] [facility], [place], [address]. tel:[phone] [facility], [address] [facility] [address], [place], [address], [place] tel:[phone] Home Visit Other intervertebra l disc degeneration, lumbar regionOther intervertebra l disc degeneration, lumbar region 1 RN RN. [address] , [facility] 220[place], [place], [address], [place]. tel:[phone] Referring Provider: Ricco Pedraza, [address] [place] [address] [facility], [place], [address]. [phone] [facility], [address] [facility] [address], [place], [address], [place] tel:[phone] Home Visit No Information 1 RN RN. [address] , [address], [place], [address], [place]. tel:[phone] Referring Provider: Ricco Pedraza, [address] [place] [address] [address] [facility], [place], [address]. tel:[phone] [facility], [address] [facility] [address], [place], [place], [address], [place] tel:[phone] [facility] No Information 1 Liss Barboza. [address] [facility] 220[place], [place], [address], [place]. tel:[phone] Referring Provider: Ricco Pedraza, [address] [place] [address] [facility], [place], [address]. tel:[phone] [facility], [address] [facility] [address], [place], [address], [place] tel:[phone] [facility] back pain (chief complaint) Low back painPain in left footPain in right footPain in leg 1 Liss Barboza. [address] [facility] 220[place], [place], [address], [place]. tel:[phone] Referring Provider: Ricco Pedraza, [address] [place] [address] [facility], [place], [address]. tel:[phone] [facility], [address] [facility] [address], [place], [address], [place] tel:[phone] Home Visit No Information 1 RN RN. [address] [facility] [address], [place], [place], [address], [place]. tel:[phone] Referring Provider: Ricco Pedraza, [address] [place], [place] [address], [place], [address]. tel:[phone] [facility], [address] [facility] [address], [place], [address], [place] tel:[phone] Home Visit back pain (chief complaint) Postlaminecto my syndrome, not elsewhere classifiedPos tlaminectomy syndrome, not elsewhere classified 1 RN RN. [address] [facility], [address], [place], [address], [place]. tel:[phone] Referring Provider: Ricco Pedraza, [address] [place] [address] [address] [facility], [place], [address]. tel:[phone] [facility], [address] [facility] 220[place], [place], [address], [place] tel:[phone] Home Visit No Information 1 RN RN. [address] , [facility] 220[place], [place], [address], [place]. tel:[phone] Referring Provider: Ricco Pedraza, [address] [place] [address] 301 [facility], [place], [address]. tel:[phone] Est Pt Eval 25 Min Telehealth [facility], [address] [facility] [address], [place], [address], [place] tel:[phone] Home Visit Postlaminecto my syndrome, not elsewhere classifiedOth er intervertebra l disc degeneration, lumbosacral regionPostlam inectomy syndrome, not elsewhere classified 1 RN RN. [address] , [address], [place], [address], [place]. tel:[phone] Referring Provider: Ricco Pedraza, [address] [place] [address] [address] [facility], [place], [address]. tel:[phone] [facility], [address] [facility] [address], [place], [address], [place] tel:[phone] Home Visit No Information 1 RN RN. [address] , [address], [place], [address], [place]. [phone] Referring Provider: Ricco Pedraza, [address] [place] [address] [address] [facility], [place], [address]. tel:[phone] [facility], [address] [facility] [address], [place], [address], [place] tel:[phone] Home Visit No Information 1 RN RN. [address] , [address], [place], [address], [place]. [phone] Referring Provider: Ricco Pedraza, [address] [place] [address] [facility], [place], [address]. [phone] [facility], [address] [facility] [address], [place], [address], [place] tel:[phone] Home Visit Postlaminecto my syndrome, not elsewhere classifiedChr onic pain syndromePostl aminectomy syndrome, not elsewhere classified 0 RN RN. [address] , [address], [place], [address], [place]. tel:[phone] Referring Provider: Ricco Pedraza, [address] [place] [address] [place], [place] [address], [place], [address]. [phone] [facility], [address] [facility] [address], [place], [address], [place] tel:[phone] Home Visit No Information 0 RN RN. [address] , [address], [place], [address], [place]. tel:[phone] Referring Provider: Ricco Pedraza, [address] [place] [address] [address] [facility], [place], [address]. [phone] [facility], [address] [facility] 220, [place], [place], [address], [place] tel:[phone] Home Visit Postlaminecto my syndrome, not elsewhere classifiedChr onic pain syndromePain in right ankle and joints of right footPain in left ankle and joints of left footPostlamin ectomy syndrome, not elsewhere classified 0 RN RN. [address] [facility], [facility] 220[place], [place], [address], [place]. tel:[phone] Referring Provider: Ricco Pedraza, [address] [place] [address] [facility], [place], [address]. tel:[phone] [facility], [address] [facility] 220, [place], [place], [address], [place] tel:[phone] Home Visit No Information 0 RN RN. [address] [facility] 220[place], [place], [address], [place]. tel:[phone] Referring Provider: Ricco Pedraza, [address] [place] [address] [facility], [place], [address]. tel:[phone] Psychiatric Diagnostic Evaluation [facility], [address] [facility] [address], [place], [place], [address], [place] tel:[phone] [facility] Pain disorder with related psychological factorsMajor depressive disorder, recurrent, moderate 0 César Felder. [address] [facility] [address], [place], [place], [address], [place]. tel:[phone] Referring Provider: Ricco Pedraza, [address] [place] [address] [facility], [place], [address]. tel:[phone] [facility], [address] [facility] [address], [place], [place], [address], [place] tel:[phone] Home Visit No Information 0 RN RN. [address], [address], [place], [place], [address], [place]. tel:[phone] Referring Provider: Ricco Pedraza, [address] [place] [address] [address] [facility], [place], [address]. tel:[phone] [facility], [address], [place], [place], [address], [place] tel:[phone] Home Visit Postlaminecto my syndrome, not elsewhere classifiedChr onic pain syndromePostl aminectomy syndrome, not elsewhere classified 0 RN RN. [address] , [address], [place], [address], [place]. tel:[phone] Referring Provider: Ricco Pedraza, [address] [place] [address] [address] [facility], [place], [address]. tel:[phone] [facility], [address], [place], [place], [address], [place] tel:[phone] Home Visit No Information 0 RN RN. [address] , [address], [place], [address], [place]. tel:[phone] Referring Provider: Ricco Pedraza, [address] [place] [address] [facility], [place], [address]. tel:[phone] [facility], [address], [place], [place], [address], [place] tel:[phone] [facility] No Information 0 César Felder. [address] , [address], [place], [place], [address], [place]. tel:[phone] Referring Provider: Ricco Pedraza, [address] [place] [address] 301 [facility], [place], [address]. tel:[phone] [facility], [address] [facility] [address], [place], [address], [place] tel:[phone] Home Visit No Information 0 RN RN. [address] [facility] 220[place], [place], [address], [place]. tel:[phone] Referring Provider: Ricco Pedraza, [address] [place] [address] 301 [facility], [place], [address]. tel:[phone] JOSE ANTONIO [facility], [address] [facility] [address], [place], [address], [place] tel:[phone] Home Visit back pain (chief complaint) Other intervertebra l disc degeneration, lumbosacral regionOther intervertebra l disc displacement, lumbar regionOther intervertebra l disc degeneration, lumbosacral region 0 RN RN. [address] [facility] 220[place], [place], [address], [place]. tel:[phone] Referring Provider: Ricco Pedraza, [address] [place] [address] [facility], [place], [address]. tel:[phone] Est Pt Eval 15 Min Telehealth [facility], [address] [facility] [address], [place], [address], [place] tel:[phone] [facility] (chief complaint) Pain in left anklePain in right ankleNeuralgi a and neuritis, unspecifiedLo w back pain 0 Jose Buchanan. [address] [facility] [address], [place], [address], [place]. tel:[phone] Referring Provider: Ricco Pedraza, [address] [place] [address] 301 [facility], [place], [address]. tel:[phone] [facility], [address] [facility] 220, [place], [place], [address], tel:[phone] Home Visit No Information 0 RN RN. [address] , [facility] 220[place], [place], [address], [place]. tel:[phone] Referring Provider: Ricco Pedraza, [address] [place] [address] [facility], [place], [address]. tel:[phone] Est Pt Eval 25 Min JOSE ANTONIO [facility], [address] [facility] , [place], [place], [address], [place] tel:[phone] [facility] back pain (chief complaint) Low back painFusion of spine, lumbar regionOther spondylosis, lumbar regionOther intervertebra l disc degeneration, lumbar regionOther intervertebra l disc displacement, lumbar regionPain in left anklePain in right ankle 0 Jose Buchanan. [address] [facility] [place], [address], [place]. tel:[phone] Referring Provider: Ricco Pedraza, [address] [place] [address] [facility], [place], [address]. tel:[phone] [facility], [address] [facility] [address], [place], [place], [address], [place] tel:[phone] Home Visit No Information 0 RN RN. [address] , [facility] 220[place], [place], [address], [place]. tel:[phone] Referring Provider: Ricco Pedraza, [address] [place] [address] [facility], [place], [address]. tel:[phone] JOSE ANTONIO [facility], [address], [address], tel:[phone] Home Visit Postlaminecto my syndrome, not elsewhere classifiedOth er intervertebra l disc degeneration, lumbosacral regionLow back painOther intervertebra l disc displacement, lumbar regionPostlam inectomy syndrome, not elsewhere classified 0 RN RN. [address] , [address], [place], [address], [place]. tel:[phone] Referring Provider: Ricco Pedraza, [address] [place] [address] [address] [facility], [place], [address]. tel:[phone] [facility], [address], [address], tel:[phone] Home Visit No Information 0 RN RN. [address] , [facility] 220[place], [place], [address], [place]. tel:[phone] Referring Provider: Ricco Pedraza, [address] [place] [address] 301 [facility], [place], [address]. tel:[phone] [facility], [address], [address], [place] tel:[phone] Home Visit back pain (chief complaint) Postlaminecto my syndrome, not elsewhere classifiedOth er intervertebra l disc degeneration, lumbosacral regionLow back painOther intervertebra l disc displacement, lumbar regionPostlam inectomy syndrome, not elsewhere classified 0 RN RN. [address] , [facility] [address], [place], [address], [place]. tel:[phone] Referring Provider: Ricco Pedraza, [address] [place] [address] [address] [facility], [place], [address]. tel:[phone] [facility], [address] [facility] [address], [place], [address], [place] tel:[phone] Home Visit No Information 0 RN RN. [address] , [address], [place], [address], [place]. tel:[phone] Referring Provider: Ricco Pedraza, [address] [place] [address] [address] [facility], [place], [address]. tel:[phone] [facility], [address], [place], [address], [place] tel:[phone] Home Visit No Information 0 RN RN. [address] , [address], [place], [address], [place]. tel:[phone] Referring Provider: Ricco Pedraza, [address] [place] [address] [address] [facility], [place], [address]. tel:[phone] [facility], [address] [facility] [address], [place], [address], [place] tel:[phone] Home Visit No Information 0 RN RN. [address] [facility] 220[place], [place], [address], [place]. tel:[phone] Referring Provider: Ricco Pedraza, [address] [place] [address] [address] [facility], [place], [address]. tel:[phone] [facility], [address], [place], [address], [place] tel:[phone] Home Visit Postlaminecto my syndrome, not elsewhere classifiedOth er intervertebra l disc degeneration, lumbosacral regionLow back painOther intervertebra l disc displacement, lumbar regionPostlam inectomy syndrome, not elsewhere classified Fe- 0 Andrea Francisco. [address] [facility] [address], [place], [address], [place]. tel:[phone] Referring Provider: Ricco Pedraza, [address] [place] [address] [facility], [place], [address]. tel:[phone] [facility], [address] [facility] [address], [place], [address], [place] tel:[phone] Home Visit back pain (chief complaint) Postlaminecto my syndrome, not elsewhere classifiedPos tlaminectomy syndrome, not elsewhere classified 0 RN RN. [address], [id number], [place]. tel:[phone] Referring Provider: Ricco Pedraza, [address] [place] [address] [facility], [place], [address]. [phone] [facility], [address], [id number], [place] tel:[phone] [facility] No Information 0 Burgess Peña. [address], [address], [place]. tel:[phone] Referring Provider: Ricco Pedraza, [address] [place] [address] [facility], [place], [address]. [phone] [facility], [address] [facility] [address], [place], [address], [place] tel:[phone] Home Visit No Information 0 RN RN. [address] [facility] [address], [place], [address], [place]. tel:[phone] Referring Provider: Ricco Pedraza, [address] [place] [address] [facility], [place], [address]. tel:[phone] [facility], [address], [place], [place], [address], [place] tel:[phone] Home Visit back pain (chief complaint) Postlaminecto my syndrome, not elsewhere classifiedPos tlaminectomy syndrome, not elsewhere classified [facility]. [address], [place], [place], [address], [place]. tel:[phone] Referring Provider: Ricco Pedraza, [address] [facility] [address] [facility], [place], [address]. tel:[phone] [facility], [address], [place], [place], [address], [place] tel:[phone] Home Visit No Information [facility]. [address], [address], [place], [place], [address], [place]. tel:[phone] Referring Provider: Ricco Pedraza, [address] [facility] [address] [facility], [place], [address]. tel:[phone] [facility], [address], [place], [place], [address], [place] tel:[phone] Home Visit back pain (chief complaint) Postlaminecto my syndrome, not elsewhere classifiedLow back painOther intervertebra l disc degeneration, lumbosacral regionPain in right footPain in left footPostlamin ectomy syndrome, not elsewhere classified [facility]. [address], [address], [place], [place], [address], [place]. tel:[phone] Referring Provider: Ricco Pedraza, [address] [facility] [address] [facility], [place], [address]. tel:[phone] [facility], [address], [place], [place], [address], [place] tel:[phone] Home Visit No Information 9 [facility]. [address], [address], [place], [place], [address], [place]. tel:[phone] Referring Provider: Ricco Pedraza, [facility] [address] [facility], [place], [address]. tel:[phone] Est Pt Eval 25 Min [facility], [address], [place], [place], [address], [place] tel:[phone] [facility] Ankle Pain (chief complaint) Pain disorder with related psychological factorsSpondy losis w/o myelopathy or radiculopathy , lumbar regionPostlam inectomy syndrome, not elsewhere classifiedPos tlaminectomy syndrome, not elsewhere classified 9 Andrea Snyderh. [address], [place], [address], [place]. tel:[phone] Referring Provider: Ricco Pedraza, [facility]0 [facility] [address] [facility], [place], [address]. tel:[phone] Est Pt Eval 25 Min [facility], [address], [place], [place], [address], [place] tel:[phone] [facility] back pain (chief complaint) Spondylosis w/o myelopathy or radiculopathy , lumbar regionPostlam inectomy syndrome, not elsewhere classifiedOth er intervertebra l disc degeneration, lumbosacral regionSpondyl osis w/o myelopathy or radiculopathy , lumbar region Sep- 9 Andrea Francisco. [address], [place], [address], [place]. tel:[phone] Referring Provider: Ricco Pedraza, [facility]0 [facility] [address] [facility], [place], [address]. tel:[phone] Est Pt Eval 25 Min [facility], [address], [place], [place], [address], [place] tel:[phone] [facility] back pain (chief complaint) Spondylosis w/o myelopathy or radiculopathy , lumbar regionOther intervertebra l disc degeneration, lumbosacral regionPain disorder with related psychological factorsSpondy losis w/o myelopathy or radiculopathy , lumbar region Sep-0 9 Andrea Francisco. [address], [place], [address], [place]. tel:[phone] Referring Provider: Ricco Pedraza, [address] [facility] [address] [facility], [place], [address]. tel:[phone] Est Pt Eval 25 Min [facility], [address], [place], [place], [address], [place] tel:[phone] [facility] back pain (chief complaint) Other spondylosis with radiculopathy , lumbar regionOther spondylosis with radiculopathy , lumbosacral regionPain disorder with related psychological factorsOther spondylosis with radiculopathy , lumbar region Aug- 9 Andrea Francisco. [address], [place], [address], [place]. tel:[phone] Referring Provider: Ricco Pedraza, [address] [facility] [address] [facility], [place], [address]. tel:[phone] [facility], [address], [place], [place], [address], [place] tel:[phone] [facility] [place] No Information Dec-2 9 Liss Chacko. [address] [facility] [address], [place], [place], [address], [place]. tel:[phone] Referring Provider: Ricco Garrison, [address], [place], [address]. tel:[phone] [facility], [address], [address], [place], [address], [place] tel:[phone] [facility] back pain (chief complaint) Postlaminecto my syndrome, not elsewhere classifiedOth er spondylosis with radiculopathy , lumbar regionOther intervertebra l disc degeneration, lumbosacral regionOpioid dependence, uncomplicated [facility]. [address], [place], [place], [address], [place]. tel:[phone] Referring Provider: Ricco Garrison, [address], [place], [address]. tel:[phone] Est Pt Eval 15 Min [facility], [facility], [address] [facility] [address], [place], [place], [address], [place] tel:[phone] [facility] back pain (chief complaint) Pain in left footPain in right footOpioid use, unspecified, uncomplicated Pain disorder with related psychological factorsOther intervertebra l disc degeneration, lumbosacral regionPostlam inectomy syndrome, not elsewhere classifiedOpi oid dependence, uncomplicated Other spondylosis with radiculopathy , lumbar region Dec- 9 Hoff Rougui. [address], [place], [address], [place]. tel:[phone] Referring Provider: Ricco Pedraza, [address] [facility] [address] [facility], [place], [address]. tel:[phone] [facility], [address], [place], [place], [address], [place] tel:[phone] [facility] back pain (chief complaint) Postlaminecto my syndrome, not elsewhere classified RN RN. [address] [facility] [address], [address], [place], [place], [address], [place]. tel:[phone] Referring Provider: Ricco Pedraza, [address] [facility] [address] [facility], [place], [address]. tel:[phone] [facility], [address] [facility] [address], [place], [place], [address], [place] tel:[phone] [facility] No Information 9 Liss Chacko. [address], [place], [place], [address], [place]. tel:[phone] Referring Provider: Ricco Garrison, [address], [place], [address]. tel:[phone] [facility], [address] [facility], [address], [place], [address], [place] tel:[phone] [facility] back pain (chief complaint) Postlaminecto my syndrome, not elsewhere classifiedOth er spondylosis with radiculopathy , lumbar regionOther intervertebra l disc degeneration, lumbosacral regionOpioid dependence, uncomplicated [facility]. [address] [facility] [address], [place], [place], [address], [place]. tel:[phone] Referring Provider: Ricco Garrison, [address], [place], [address]. tel:[phone] Est Pt Eval 15 Min Ramon [facility], [address] [facility] [address], [place], [place], [address], [place] tel:[phone] [facility] back pain (chief complaint) Postlaminecto my syndrome, not elsewhere classifiedOth er spondylosis with radiculopathy , lumbosacral regionOther spondylosis with radiculopathy , lumbar regionLow back painOpioid use, unspecified, uncomplicated Other intervertebra l disc displacement, lumbar regionSpondyl osis w/o myelopathy or radiculopathy , lumbar regionOther intervertebra l disc degeneration, lumbosacral region Hoff Rougui. [address] [facility] [address], [place], [address], [place]. tel:[phone] Referring Provider: Ricco Pedraza, [address] [facility] [address] [facility], [place], [address]. tel:[phone] Est Pt Eval 15 Min [facility], [address] [facility] [address], [place], [place], [address], [place] tel:[phone] [facility] (chief complaint) Other intervertebra l disc degeneration, lumbosacral regionPostlam inectomy syndrome, not elsewhere classifiedPai n in left footLong term (current) use of opiate analgesic Alecia Tran. [address] [facility], [address], [place], [place], [address], [place]. tel:[phone] Referring Provider: Ricco Pedraza, [address] [facility] [address] [facility], [place], [address]. tel:[phone] Est Pt Eval 15 Min [facility], [address], [place], [place], [address], [place] tel:[phone] [facility] back pain (chief complaint) Low back painOther intervertebra l disc displacement, lumbar regionOther intervertebra l disc degeneration, lumbosacral regionLong term (current) use of opiate analgesicOpio id use, unspecified, uncomplicated Pain disorder with related psychological factors Hoff Rougui. [address] [facility] [address], [place], [address], [place]. tel:[phone] Referring Provider: Ricco Pedraza, [address] [facility] [address] [facility], [place], [address]. tel:[phone] [facility], [address], [place], [place], [address], [place] tel:[phone] [facility] back pain (chief complaint) Pain in left footPostlamin ectomy syndrome, not elsewhere classifiedPai n in left foot Liss Chacko. [address], [place], [place], [address], [place]. tel:[phone] Referring Provider: Ricco Pedraza, [address] [facility] [address] [facility], [place], [address]. tel:[phone] [facility], [address] [facility], [address], [place], [address], [place] tel:[phone] [facility] back pain (chief complaint) Postlaminecto my syndrome, not elsewhere classifiedOth er intervertebra l disc degeneration, lumbosacral regionOther spondylosis with radiculopathy , lumbar regionOpioid dependence, uncomplicated Postlaminecto my syndrome, not elsewhere classifiedOth er intervertebra l disc degeneration, lumbosacral regionOther spondylosis with radiculopathy , lumbar regionOpioid dependence, uncomplicated Liss Chacko. [address], [place], [place], [address], [place]. tel:[phone] Referring Provider: Ricco Pedraza, [address] [facility] [address] [facility], [place], [address]. tel:[phone] [facility], [address], [place], [place], [address], [place] tel:[phone] [facility] No Information Liss Chacko. [address] [facility] [address], [place], [place], [address], [place]. tel:[phone] Referring Provider: Ricco Pedraza, [address] [place] [address] [address] [facility], [place], [address]. tel:[phone] [facility], [address] [facility], [place], [place], [address], [place] tel:[phone] [facility] Low back pain 9 Garrett Anne. [address] [facility] [address] [facility] 220, [place], [address], [place]. tel:[phone] Referring Provider: Ricco Pedraza, [facility]0 [facility] [address] [facility], [place], [address]. tel:[phone] Est Pt Eval 25 Min [facility]on [facility], [address] [facility] [address], [place], [place], [address], [place] tel:[phone] [facility] back pain (chief complaint) Postlaminecto my syndrome, not elsewhere classifiedOth er intervertebra l disc displacement, lumbar regionPain in left footPain in right footLow back painSpondylos is w/o myelopathy or radiculopathy , lumbar regionLong term (current) use of opiate analgesic 9 Deja Clifford. [address] [facility] [address], [place], [place], [address], [place]. tel:[phone] Referring Provider: Ricco Pedraza, [facility]0 [facility] [address] [facility], [place], [address]. tel:[phone] Psychotherap y, 30 minutes with patient [facility], [address] [facility] [address], [place], [place], [address], [place] tel:[phone] [facility] Opioid use, unspecified, uncomplicated Pain disorder with related psychological factors Marinarichy Prince. [address] [facility], [address], [place], [place], [address], [place]. tel:[phone] Referring Provider: Ricco Pedraza, [address] [facility] [address] [facility], [place], [address]. tel:[phone] [facility], [address] [facility], [address], [place], [address], [place] tel:[phone] [facility] back pain (chief complaint) Other intervertebra l disc degeneration, lumbosacral regionOther spondylosis with radiculopathy , lumbar regionPostlam inectomy syndrome, not elsewhere classifiedPos tlaminectomy syndrome, not elsewhere classifiedOth er spondylosis with radiculopathy , lumbar regionOther intervertebra l disc degeneration, lumbosacral region Liss Chacko. [address] [facility] [address], [place], [address], [place]. tel:[phone] Referring Provider: Ricco Pedraza, [address] [facility] [address] [facility], [place], [address]. tel:[phone] [facility], [address] [facility], [place], [place], [address], [place] tel:[phone] [facility] No Information 9 Liss Chacko. [address], [place], [address], [place]. tel:[phone] Referring Provider: Ricco Pedraza, [address] [facility] [address] [facility], [place], [address]. tel:[phone] Est Pt Eval 15 Min [facility], [address] [facility] [address], [place], [place], [address], [place] tel:[phone] [facility] back pain (chief complaint) Other intervertebra l disc degeneration, lumbosacral regionSpondyl osis w/o myelopathy or radiculopathy , lumbar regionOpioid use, unspecified, uncomplicated Pain in left footLow back painPostlamin ectomy syndrome, not elsewhere classifiedLon g term (current) use of opiate analgesic 9 Deja Clifford. [address], [place], [place], [address], [place]. tel:[phone] Referring Provider: Ricco Pedraza, [address] [facility] [address] [facility], [place], [address]. tel:[phone] Psychotherap y, 30 minutes with patient ELLIOTT Navarro, [address], [place], [place], [address], [place] tel:[phone] [facility] Pain disorder with related psychological factors 9 Lisa Greenwood. [address], [place], [address], [place]. tel:[phone] Referring Provider: Ricco Pedraza, [address] [facility] [address] [facility], [place], [address]. tel:[phone] ELLIOTT [facility], [address], [place], [place], [address], [place] tel:[phone] [facility] Low back painLow back pain 9 Phong Marino. [address], [place], [address], [place]. tel:[phone] Referring Provider: Ricco Pedraza, [address] [facility] [address] [facility], [place], [address]. tel:[phone] ELLIOTT [facility], [address], [place], [place], [address], [place] tel:[phone] [facility] Low back painLow back pain Aug- 9 Phong Marino. [address] [facility] [address], [place], [address], [place]. tel:[phone] Referring Provider: Ricco Pedraza, [facility]0 [facility] [address] [facility], [place], [address]. tel:[phone] Psychiatric Diagnostic Evaluation [facility], [address] [facility] [address], [place], [place], [address], [place] tel:[phone] [facility] Opioid use, unspecified, uncomplicated Pain disorder with related psychological factors 9 Lokesh Morrison. [address] [facility], [address], [place], [place], [address], [place]. tel:[phone] Referring Provider: Ricco Pedraza, [facility]0 [facility] [address] [facility], [place], [address]. tel:[phone] New Pt Eval 60 Min [facility]on [facility], [address] 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 [address] [facility] [address], [place], [place], [address], [place]. tel:[phone] Referring Provider: Ricco Pedraza, [facility]0 [facility] [address] [facility], [place], [address]. tel:[phone] [facility], [address] [facility], [place], [place], [address], [place] tel:[phone] [facility] No Information 9 Leija Jabari. [address] [facility] [address], [place], [address], [place]. tel:[phone] Referring Provider: Ricco Pedraza, [address] [facility] [address] [facility], [place], [address]. tel:[phone] [facility], [address] [facility] [address], [place], [place], [address], [place] tel:[phone] [facility] 7390 No Information 1 Kriss Khai. [address] [facility], [address], [place], [place], [address], [place]. tel:[phone] Referring Provider: REFERRAL SELF, CLARIBEL. Est Pt Eval 25 Min [facility]on [facility], [address] [facility] [address], [place], [place], [address], [place] tel:[phone] [facility] No Information 1 No Information Referring Provider: REFERRAL SELFCLARIBEL. Offic/outpt E&m Estab [facility], [address] [facility] [address], [place], [place], [address], [place] tel:[phone] [facility] No Information 1 Tomshine Amelia. [address] [facility], [address], [place], [place], [address], [place]. tel:[phone] Referring Provider: REFERRAL SELFCLARIBEL. Ramon [facility], [address] [facility] [address], [place], [place], [address], [place] tel:[phone] [facility] No Information 1 Tomshine Amelia. [address] [facility], [facility] [address], [place], [address], [place]. tel:[phone] Referring Provider: NATASHA BOLTON, CLARIBEL. ELLIOTT Navarro, [address], [place], [address], [place] tel:[phone] [facility] No Information 4-201 0 Tomshine Amelia. [address], [address], [place], [address], [place]. tel:[phone] Referring Provider: Fidencio Jon MD, [address] [place], [address]. tel:[phone] ELLIOTT [facility], [address], [place], [address], [place] tel:[phone] [facility] No Information 0-201 0 Tomshine Amelia. [address], [address], [place], [address], [place]. tel:[phone] Referring Provider: Fidencio Jon MD, [address] [place], [address]. tel:[phone] E[facility]IOTT [facility], [address], [place], [address], [place] tel:[phone] [facility] No Information 9201 0 Tomshine Amelia. [address], [address], [place], [address], [place]. tel:[phone] Referring Provider: Fidencio Jon MD, [address] [place], [address]. tel:[phone] ELLIOTT Navarro, [address], [place], [address], [place] tel:[phone] Judith Navarro [facility] 7390 No Information 3-201 0 Kriss Ridley. [address], [address], [place], [address], [place]. tel:[phone] Referring Provider: Ilir Lind MD, [address] [facility], [place], [address]. [phone] Offic/outpt E&m Estab Minor 10 Ramon, [facility], [address], [place], [place], [address], [place] tel:[phone] [facility] No Information 0 Dawoodcristina Amelia. [address], [address], [place], [place], [address], [place]. tel:[phone] Referring Provider: Ilir Lind MD, [address] [place], [address]. [phone] Est Pt Eval 25 [facility], [address], [place], [place], [address], [place] tel:[phone] [facility] No Information 0 No Information Referring Provider: Ilir Lind MD, [address] [place], [address]. tel:[phone] Offic/outpt E&m Estab Minor 10 [facility], [facility], [address], [place], [place], [address], [place] tel:[phone] [facility] No Information 0 No Information Referring Provider: Fidencio Jon MD, [address] [place], [address]. tel:[phone] [facility], [address], [place], [place], [id number], [place] tel:[phone] [facility] No Information 9 No Information Referring Provider: Ilir Lind MD, [address] [place], [address]. tel:[phone] Ramon [facility], [address], [place], [id number], [place] tel:[phone] [facility] No Information 9 No Information Referring Provider: Ilir Lind MD, [address] [place], [address]. tel:[phone] Offic/outpt E&m Estab Minor 10 [facility] [address] [facility] [address], [place], [id number], [place] tel:[phone] [facility] No Information No Information Referring Provider: Ilir Lind MD, [address] [place], [address]. tel:[phone] Ramon [facility], [address] [facility] [facility] [address], [place], [id number], tel:[phone] [facility] No Information 9 No Information Referring Provider: Ilir Lind MD, [address] [place], [address]. tel:[phone] Offic Cons New/estab Mod-hi 60 [facility] [address] [facility] [facility] [address], [place], [id number], [place] tel:[phone] [facility] No Information Jose Cisneros. [address] [facility], [address], [place], [place], [id number], [place]. tel:[phone] Referring Provider: Ilir Lind MD, [address] [place], [address]. tel:[phone] Family History Family Member Type Diagnosis Age At Onset Father Problem (finding) aneurysm of thoracic ao rta Brother Problem (finding) rheumatoid arthritis Mother Problem (finding) rheumatoid arthritis Payers Payer name Insurance type Covered democrat ID Authortalaa timonica(s) [employer] [facility] [id number] Social History Type Description Quantity Date Captured [...] No Information Instructions Date Instruction Additional Infor travion Continue with curren t settings. 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 a bulk tank driver-Continue Tizanidine 4mg up to 1-2 tabs [...] her know that she needs to inform [facility] on what medication is in his pump and that you're wanting to wean off pain pump and eventually switch to oral pain medication-Continue Flomax 0.4mg 1x/day, no refill today-Continue Oxycodone as prescribed through outside provider-[facility]-Follow up provider at [facility] as scheduled- Follow up with orthopedic doctor [...] unspecified ankle and joints of unspecified foot Giving encouragement to exercise Related to Body [...] not elsewhere classified Same. Related to Other spondylosis with radiculopathy, lumbar region Same. Related to Other intervertebral disc degeneration, lumbosacral region Same. Related to Opioi d dependence, uncomplicated -Order-Refill/ Presc ribe -Follow up with MARIANNA in one month Related to Low back pain Same plan of care as statement for above diagnosis, no changes Related to Pain in right foot Same plan of care as statement for above diagnosis, no changes Related to Pain in left foot Same plan of care as statement for above diagnosis, no changes Related to Pain in leg Assessments Type Assessment Date No Information Patient Care Teams Name Effective Dates (start - stop) Status Members No Information
[2023-12-07] MEDS: 0.9 % SODIUM CHLORIDE 1000 ml 1,000 ML IV (16:15)
[2023-12-07 16:24] LABS: Lactate* 1.2 mmol/L (0.5-1.9)
[2023-12-07 16:28] LABS: Basophils Absolute Auto 0.04 K/uL (0.00-0.30); Basophils Percent Auto 0.5 % (0.0-3.0); Eosinophils Percent Auto 1.1 % (0.0-7.0); Hematocrit 36.5 % (37.0-53.0); Hemoglobin* 11.7 gm/dL (13.5-17.5); Immature Granulocytes Abs Auto 0.02 K/uL (0.00-0.30); Immature Granulocytes Pct Auto 0.2 %; Lymphocytes Percent Auto 14.3 % (20-44); Mean Corpuscular HGB Conc 32 gm/dL (32-36); Mean Corpuscular Hemoglobin 31 pg (26-34); Mean Corpuscular Volume 95 fL (80-100); Monocytes Percent Auto 5.7 % (0.0-11.0); Neutrophils Percent Auto 78.2 % (42.0-72.0); Platelet Count* 253 K/uL (140-440); Red Blood Count 3.83 m/uL (4.30-5.90); White Blood Count* 8.74 K/uL (4.50-11.00)
[2023-12-07 16:40] LABS: Chloride* 102 mmol/L (96-114); Potassium* 4.5 mmol/L (3.6-5.1); Slide Review Reflex No; Sodium* 136 mmol/L (135-149)
[2023-12-07 16:43] LABS: Creatinine* 0.7 mg/dL (0.5-1.5); Est. Creatinine Clearance* 126.83; Estimated Glomerular Filt Rate 105 ml/min
[2023-12-07 16:44] LABS: Anion Gap 7 mEq/L (7-15); Blood Urea Nitrogen* 12 mg/dL (7-30); Calcium* 9.3 mg/dL (8.4-10.6); Carbon Dioxide* 27 mmol/L (20-32); Glucose* 115 mg/dL (60-115)
[2023-12-07 16:47] LABS: C Reactive Protein* 2.2 mg/dL (0.5-1.0)
[2023-12-07] MEDS: LIDOCAINE 1% 5 ml (pf) 5 ML VIAL 2.1 ML IM (18:14)
[2023-12-07] MEDS: cefTRIAXone 1 GM VIAL IM (18:14)
== END 2023-12-07 18:15 | disposition home or self-care (01) ==
PROVIDERS: Emergency Provider Family Medicine; PCP Family Medicine
DX: L03.115 Cellulitis of right lower limb (principal)
CPT/HCPCS: 36415; 80048; 83605; 85025; 86140; 87070; 96360; 96361; 96372; 99284; J0696; J7030